=== PATIENT | male | born 1970 | race Caucasian/White ===

== ENCOUNTER → 2016-08-27 | Outpatient (CLI) | payer OTHER ==
[~2016-08-27] MED LIST: ACET-654 PO; CALC1CAP31 PO; CORE25TA PO; GLIP5TAB8 PO; PROT20TA11 PO; SIMV40TA2 PO; WARF-23 PO
== END ==
LOC: M RAD 14:37
PROVIDERS: ATTEND Internal Medicine Nephrology
DX: D41.02 Neoplasm of uncertain behavior of left kidney (principal); N18.4 Chronic kidney disease, stage 4 (severe); E11.22 Type 2 diabetes mellitus with diabetic chronic kidney disease

== ENCOUNTER → 2016-09-18 | Outpatient (CLI) | payer OTHER ==
[~2016-09-18] VITALS: Ht 180.3 cm; Wt 100.7 kg
[~2016-09-18] MED LIST changes: +ISOVUE-370 76% 100ML VIAL (Q9967) As Ordered ONE; +SODIUM BICARBONATE 75 MEQ in NS 0.45% 1,000 ML IV ONE
--- NOTE | 2016-09-18 12:26 | REP ---
Clinical: Suspected left renal mass by ultrasound. Technique: Axial contrast enhanced images from the lung bases to the pubic symphysis using 75 ml Optiray 350 intravenous contrast material along with precontrast, and multiple delayed phase sequences of the abdomen. Coronal and sagittal re-formations were obtained. Correlation: Ultrasound dated 07/04/2016. Findings: Chronic symmetric bilateral perinephric stranding is appreciated. The kidneys demonstrate symmetric enhancement. Two small nonobstructing left intrarenal calculi measure up to 2 mm. With regards to suspected mass by ultrasound, the area in question demonstrates a 1 cm complex benign appearing cyst with adjacent cortical scarring and normal Column of Omega (normal variant) which together on ultrasound suggested neoplastic lesion. No significant renal mass lesions are otherwise appreciated. Liver, spleen, pancreas, gallbladder, and bilateral adrenal glands are normal. The enteric system is without obstruction or acute inflammatory process and a normal terminal ileum and appendix are identified in the right lower quadrant. 1.5 cm fat containing periumbilical hernia is identified. Pelvis demonstrates mildly prominent prostate gland and relatively normal bladder. No ascites. No intraperitoneal or retroperitoneal adenopathy. Atherosclerotic changes to the abdominal aorta and common iliac arteries noted without aneurysm or dissection. Small fat containing inguinal hernias noted (left greater than right). Musculoskeletal structures demonstrate degenerative changes and chronic spondylolysis at L5 without focal osseous abnormality. Lung bases demonstrate posterior bilateral dependent changes. Impression: 1. Suspected mass lesion in the left kidney based on ultrasound corresponds to a 1 cm complex benign appearing cyst with adjacent mild cortical scarring and column of Omega. No significant left renal mass lesion otherwise noted. 2. Two small nonobstructing left intrarenal calculi measuring 2 mm. 3. Mildly prominent prostate gland. 4. 1.5 cm fat containing periumbilical hernia and small bilateral fat containing inguinal hernias. 5. Chronic spondylolysis at L5 with 2 mm anterolisthesis. Signed by Hesham Gomez MD 09/18/2016 12:17 P
== END ==
LOC: M RAD 09:09
PROVIDERS: ATTEND Internal Medicine Nephrology
DX: N28.1 Cyst of kidney, acquired (principal); N18.4 Chronic kidney disease, stage 4 (severe); E11.22 Type 2 diabetes mellitus with diabetic chronic kidney disease; N20.0 Calculus of kidney; K42.9 Umbilical hernia without obstruction or gangrene; K40.20 Bilateral inguinal hernia, without obstruction or gangrene, not specified as recurrent

== ENCOUNTER → 2018-03-05 | Outpatient (CLI) | payer OTHER | LOC: M RAD 11:26 | DX: N18.4 Chronic kidney disease, stage 4 (severe) (principal); E11.22 Type 2 diabetes mellitus with diabetic chronic kidney disease; I15.0 Renovascular hypertension; I70.8 Atherosclerosis of other arteries | CPT/HCPCS: G0365 ==

== ENCOUNTER 2020-06-22 19:07 | Inpatient (IN) | payer OTHER ==
[~2020-06-22] VITALS: Ht 177.8 cm; Wt 108.6 kg
[~2020-06-22 19:07] MED LIST changes: -ACET-654 PO; +ACET1TAB55 PO; -ISOVUE-370 76% 100ML VIAL (Q9967) As Ordered ONE; -SIMV40TA2 PO; +SIMV40TA20 PO; -SODIUM BICARBONATE 75 MEQ in NS 0.45% 1,000 ML IV ONE
[2020-06-22] MEDS ORDERED: ATOR40TA75 PO ×2 (19:17→23:43)
[2020-06-22] MEDS ORDERED: MAGN64TASA PO ×2 (19:17→23:43)
[2020-06-22] MEDS ORDERED: DERM1TAB2 PO (19:17)
[2020-06-22] MEDS ORDERED: IRON65TA2 PO (19:17)
[2020-06-22 19:42] LABS: HEMATOCRIT 45.1 % (42.0-52.0); HEMOGLOBIN 13.8 g/dl (13.5-17.5); MEAN CORPUSCULAR HEMOGLOBIN 27.9 pg (27.0-33.0); MEAN CORPUSCULAR HGB CONC 30.6 g/dl (32.0-36.5); MEAN CORPUSCULAR VOLUME 91.3 fl (80.0-96.0); PLATELET COUNT, AUTOMATED 176 10^3/uL (150-450); RED BLOOD COUNT 4.94 10^6/uL (4.30-6.10); WHITE BLOOD COUNT 18.5 10^3/uL (4.0-10.0)
[2020-06-22] MEDS: fentaNYL 100 MCG/2 ML INJECTION (J3010) IV PRN ×2 (20:00→21:58)
[2020-06-22 20:10] LABS: LYMPHOCYTES 3 % (16-44); METAMYELOCYTES 1 % (0-0); MONOCYTES 1 % (0-5); NEUTROPHILS 74 % (28-66)
[2020-06-22 20:11] LABS: ANISOCYTOSIS 1+; HYPOCHROMASIA 1+; PLATELET ESTIMATE NORMAL (NORMAL)
[2020-06-22 20:12] LABS: TOXIC VACUOLATION 1+
--- NOTE | 2020-06-22 20:13 | REP ---
INDICATION: CHEST PAIN. COMPARISON: 04/02/2016 FINDINGS: The technique utilized in obtaining the radiograph has magnified the cardiac silhouette and accentuated the interstitial markings. There is cardiomegaly accentuated by technique. There are patchy opacities in the left lower lobe partially silhouetting out the diaphragmatic surface of the left lung laterally. There is left CP angle blunting. The right lung is unchanged. The right pleural angle is sharp. Note of all 3. Is again made of previous median sternotomy. There is no change in the osseous structures. IMPRESSION: Left lung opacities. Pneumonia/atelectasis/effusion versus combination of all 3. <Electronically signed by Wisam Gaviria > 06/22/202008
[2020-06-22 20:44] LABS: PROTHROMBIN TIME 49.3 SECONDS (12.5-14.3)
[2020-06-22] MEDS ORDERED: CARVedilol 12.5 MG TAB PO ONE (20:45)
[2020-06-22] MEDS ORDERED: hydroCHLOROthiazide 25 MG TAB PO ONE (20:45)
[2020-06-22] MEDS ORDERED: AZITHROMYCIN INJ 500 MG, VIAL MATE ADAPTER 1 EACH in D5W 250 ML IV ONE (20:45)
[2020-06-22] MEDS ORDERED: cefTRIAXone SOD 2 GM in D5W MINI-BAG PLUS 50 ML IV ONE (20:45)
[2020-06-22] MEDS ORDERED: TORSEMIDE 20 MG TAB PO ONE (20:45)
[2020-06-22 20:46] LABS: PARTIAL THROMBOPLASTIN TIME 65.9 SECONDS (24.2-38.5)
[2020-06-22] MEDS: **hydrALAZINE HCL** 25 MG TAB PO SCH (21:00)
[2020-06-22] MEDS: CARVedilol 6.25 MG TAB PO SCH (21:00)
[2020-06-22 21:14] LABS: INR 5.23
[2020-06-22 22:08] LABS: ALBUMIN 2.3 GM/DL (3.2-5.2); ALT/SGPT 17 U/L (12-78); BILIRUBIN,DIRECT 0.4 MG/DL (0.0-0.2); BILIRUBIN,TOTAL 0.8 MG/DL (0.2-1.0); BLOOD UREA NITROGEN 75 MG/DL (7-18); CALCIUM LEVEL 8.9 MG/DL (8.5-10.1); CARBON DIOXIDE LEVEL 21 MEQ/L (21-32); CHLORIDE LEVEL 110 MEQ/L (98-107); CK-MB VALUE MASS 3.8 NG/ML (<3.6); CPK CREATINE PHOSPHOKINASE 120 U/L (39-308); CREATININE FOR GFR 5.69 MG/DL (0.70-1.30); GLOMERULAR FILTRATION RATE 11.3 (>56); GLUCOSE, FASTING 43 MG/DL (70-100); LIPASE 105 U/L (73-393); MB/CK RELATIVE INDEX 3.17 (< OR =4); NT-PRO BNP 26739 PG/ML (<125); POTASSIUM SERUM 4.8 MEQ/L (3.5-5.1); SODIUM LEVEL 140 MEQ/L (136-145); TOTAL PROTEIN 5.4 GM/DL (6.4-8.2); TROPONIN I < 0.02 NG/ML (< 0.10)
--- NOTE | 2020-06-22 22:59 | HPEPDOC ---
[facility] Medical History & Physical Date of Admission Jun 22, 2020 Date of Service: Jun 22, 2020 Primary Care Physician: Johine Parra MD Attending Physician: PEDRO BROOKS MD History and Physical TIME OF SERVICE: 1140pm CHIEF COMPLAINT: chest and back pain HISTORY OF PRESENT ILLNESS: This is a 50 yr old M who presented w c/o back pain and left sided chest pain that begun on Saturday. The pain was 9/10 in severity and worse w coughing and taking a deep breath. He thought that it might be due to a pulled muscle. He denied having GONZALEZ, f/c/n/v or diarrhea. He has had a poor appeite and his last meal was on Saturday. REVIEW OF SYSTEMS: 12 point review of systems negative except as listed in HPI PAST MEDICAL/ SURGICAL HISTORY: Premature CAD w MIs at 31, 33 yrs of age s/p CABG & stents Chronic HTN Chronic warfarin use (he doesn't know the reason why he takes this med) CKD 3/4 NIDDM Obesity SOCIAL HISTORY: + tobacco Lives with his parents FAMILY HISTORY: DM CAD ALLERGIES: Please see below. HOME MEDICATIONS: Please see below. PHYSICAL EXAMINATION: Vital Signs Date Time Temp Pulse Resp B/P (MAP) Pulse Ox O2 Delivery O2 Flow Rate FiO2 06/22/20 19:09 96.9 86 20 144/76 (98) 95 Room Air 06/22/20 20:00 3.0 97 GEN: well-nourished / well developed/ NAD INTEGUMENT: flushed/ not jaundice HEENT: lips acyanotic /mucus membranes dry/ sclera anicteric CVS: RRR/NMRG/ no JVP / radial and dorsalis pedis pulses intact / no lower extremity edema LUNGS: able to speak full sentences without stopping to take a breath / coughing / + inspiratory crackles ABDOMEN: Contour (flat) MSK/EXTREMITIES: NCAT / range of motion intact in all 4 extremities / chest pain not reproducable w palpation of the chest NEURO: CN 2-12 are grossly intact / speech is not dysarthric PSYCH: alert and oriented to person place and time/ able to understand and follow all commands LABORATORY DATA: 06/22/20 19:29 06/22/20 21:12 06/22/20 19:29: Neutrophils (%) (Auto) , Nucleated Red Blood Cells % (auto) 0.0, Neutrophils 74H, Band Neutrophils 21H, Lymphocytes (Manual) 3L, Monocytes (Manual) 1, Metamyelocytes 1H, Hypochromasia 1+, Anisocytosis 1+, Toxic Vacuolation 1+, Platelet Estimate NORMAL 06/22/20 20:19: Prothrombin Time 49.3H, Prothromb Time International Ratio 5.23*H, Activated Partial Thromboplast Time 65.9H, Coronavirus (COVID-19)(PCR) NEGATIVE 06/22/20 21:12: Anion Gap 9, Glomerular Filtration Rate 11.3L, Calcium Level 8.9, Total Bilirubin 0.8, Direct Bilirubin 0.4H, Aspartate Amino Transf (AST/SGOT) 22, Alanine Aminotransferase (ALT/SGPT) 17, Alkaline Phosphatase 79, Total Creatine Kinase 120, Creatine Kinase MB 3.8H, Creatine Kinase MB Relative Index 3.17, Troponin I < 0.02, BR-Adb-Y-Type Natriuretic Peptide 68738N, Total Protein 5.4L, Albumin 2.3L, Albumin/Globulin Ratio 0.7, Lipase 105 IMAGING: Chest xray "IMPRESSION: Left lung opacities. Pneumonia/atelectasis/effusion versus combination of all 3." MICROBIOLOGY: Please see below. ASSESSMENT: Mr. White is a 50 yr old w a hx of premature CAD/CABG, HTN, CKD 3/4, NIDDM, obesity and chronic warfarin use who will be admitted for management of Sepsis 2/2 PNA, MADINA and hypoglycemia. PLAN: 1. Sepsis SIRS criteria: bands >10% / WBC >12 / RR 20 Plan: admit to PCU / telemetry / Sepsis protocol w lactic acid / abx / IVF /f/u blood cx, UA w Cx and sputum Cx / Acetaminophen PRN for fever / target MAP at of least 65 to 70 / f/u Is and Os with target UOP of at least 0.5 ml/kg/H / f/u FSBS w target serum glucose 140-180 while acutely ill 2. Community acquired PNA Plan: continuous pulse ox & supplemental O2/ f/u sputum cx, strep pneumo, legionella, MRSA & blood cx,/ IV ceftriaxone, doxycycline / IVF / tessalon pearls / Acetaminophen PRN for fever 3. Acute Renal Failure on CKD 3/4 MADINA likely pre-renal Plan: Is/Os, daily weights / IVF / f/u, PTH, Phosph, Uric acd, ulytes for FENa or FEUrea / renal US / day time team may consider Nephro consult / hold allopurinol, torsemide, calcitriol and PPI bc of MADINA 4. Hypoglycemia Likely 2/2 infection Plan: D5NS, f/u frequent FSBS / treat infection 5. Coagulopathy INR 5.3 no bleeding Plan: hold warfarin & trend Coags /will ask day time team to call pt's PCP to obtain additional PMH 6. Chest pain Likely pleuritic 2/2 coughing Trop wnl Plan: check EKG / acetaminophen / bc of hx of premature CAD will order telemetry and trend trops 7. Possible CHF ? BNP elevated he is on a CCB and diuretics Plan: f/u Is and Os & Echo 8. LLE swelling Plan: f/u venous US to r/o DVT 9. Premature CAD Plan: atorvastatin, Coreg, Zetia 10. Chronic HTN Plan: Hydralazine, Coreg 11. NIDDM Plan: diabetic diet / f/u accuchecks & A1C / hypoglycemia protocol / sliding scale insulin / hold oral anti-glycemics 12. 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 DVT PROPHYLAXIS: SCDs DISPOSITION: home after more than 2 midnight's stay Home Medications Scheduled Allopurinol (Allopurinol) 100 Mg Tablet, 100 MG PO QHS Atorvastatin Calcium (Atorvastatin Calcium) 40 Mg Tablet, 40 MG PO QHS Calcitriol (Calcitriol) 0.25 Mcg Cap, 0.25 MCG PO 3XW SATURDAY, SATURDAY AND SATURDAY Carvedilol (Carvedilol) 6.25 Mg Tablet, 6.25 MG PO BID Cholecalciferol (Vitamin D3) (Vitamin D3) 125 Mcg Capsule, 125 MCG PO 2XW SATURDAY AND SATURDAY AT QHS Ezetimibe (Ezetimibe) 10 Mg Tablet, 10 MG PO QHS Glipizide (Glipizide) 5 Mg Tab, 5 MG PO DAILY Hydralazine HCl (Hydralazine HCl) 25 Mg Tablet, 25 MG PO BID Iron Polysaccharide Complex (Ferrex 150) 150 Mg Capsule, 150 MG PO 3XW SATURDAY, SATURDAY AND SATURDAY Magnesium Chloride (Mag64) 64 Mg Tablet.dr, 64 MG PO QHS Pantoprazole Sodium (Protonix) 20 Mg Tab, 20 MG PO QHS Sodium Bicarbonate (Sodium Bicarbonate) 325 Mg Tablet, 325 MG PO BID Torsemide (Torsemide) 20 Mg Tablet, 20 MG PO BID Warfarin Sodium (Warfarin Sodium) 5 Mg Tablet, 5 MG PO 5XW SATURDAY, SATURDAY, SATURDAY, SATURDAY AND SATURDAY AT HS Allergies Coded Allergies: No Known Drug Allergies (Verified Allergy, Unknown, 06/22/20) metformin (Verified Adverse Reaction, Severe, pancreatitis, 06/22/20) sitagliptin (Verified Adverse Reaction, Severe, pancreatitis, 06/22/20) A-FIB/CHADSVASC A-FIB History Current/History of A-Fib/PAF?: No Current PO Anticoag Therapy: No PEDRO BROOKS MD Jun 22, 2020 22:59
[2020-06-22] MEDS ORDERED: MAALOX 30 ML SUSP *UDC PO PRN (23:00)
[2020-06-22] MEDS ORDERED: VANCOMYCIN HCL IV SCH (23:00)
[2020-06-22] MEDS ORDERED: DEXTROSE 50% 50 ML SYRINGE IV PRN (23:00)
[2020-06-22] MEDS ORDERED: GLUCOSE 4GM CHEW TABLET PO PRN (23:00)
[2020-06-22] MEDS ORDERED: D5W/0.9% SODIUM CHLORIDE 1,000 ML IV SCH (23:00)
[2020-06-22] MEDS ORDERED: FLUID PLACE HOLDER IV SCH (23:00)
[2020-06-22] MEDS ORDERED: MOM 30ML SUSPENSION UDC PO PRN (23:00)
[2020-06-22] MEDS ORDERED: GLUCAGON INJ 1MG VIAL SC PRN (23:00)
[2020-06-22 23:21] LABS: PHOSPHORUS LEVEL 5.1 MG/DL (2.5-4.9)
[2020-06-22 23:37] LABS: HEMOGLOBIN A1c 8.5 %
[2020-06-22] MEDS ORDERED: EZET10TA21 PO (23:43)
[2020-06-22] MEDS ORDERED: FERR150C PO (23:43)
[2020-06-22] MEDS ORDERED: HYDR-3910 PO (23:43)
[2020-06-22] MEDS ORDERED: TORS20TA2 PO (23:43)
[2020-06-22] MEDS ORDERED: SODI325T9 PO (23:43)
[2020-06-22] MEDS ORDERED: CARV6.25 PO (23:43)
[2020-06-22] MEDS ORDERED: WARF-23 PO (23:43)
[2020-06-22] MEDS ORDERED: D-50CAP PO (23:43)
[2020-06-22] MEDS ORDERED: ALLO100T PO (23:43)
[2020-06-22 23:52] LABS: VENOUS BASE EXCESS -5.6 (-2.0-2.0); VENOUS HCO3 20.7 MEQ/L (23.0-27.0); VENOUS O2 SATURATION 76.8 % (60.0-80.0); VENOUS PARTIAL PRESSURE CO2 43.4 mmHg (38.0-50.0); VENOUS PH 7.297 UNITS (7.330-7.430); VENOUS STANDARD HCO3 19.5 MEQ/L; VENOUS TOTAL CO2 22.1 MEQ/L (24.0-28.0)
[2020-06-23] VITALS (17 sets, daily range): BP systolic 102–131; BP diastolic 60–78; O2SAT 95–97
[2020-06-23 00:31] LABS: CK-MB VALUE MASS 3.2 NG/ML (<3.6); CPK CREATINE PHOSPHOKINASE 106 U/L (39-308); MB/CK RELATIVE INDEX 3.02 (< OR =4); TROPONIN I < 0.02 NG/ML (< 0.10)
[2020-06-23] MEDS ORDERED: VANCOMYCIN HCL 1,000 MG, VIAL MATE ADAPTER 1 EACH in D5W 250 ML IV ONE ×5 (01:00→06:30)
[2020-06-23] MEDS ORDERED: VANCOMYCIN HCL 750 MG, VIAL MATE ADAPTER 1 EACH in D5W 250 ML IV ONE ×4 (01:00)
[2020-06-23] MEDS: HumaLOG INSULIN (NovoLOG) PER UNIT SC SCH ×6 (01:00→21:00)
[2020-06-23] MEDS: fentaNYL 100 MCG/2 ML INJECTION (J3010) IV PRN (01:18)
[2020-06-23] MEDS ORDERED: BENZONATATE 100 MG CAP PO PRN (01:45)
[2020-06-23] MEDS: MAGNESIUM CHLORIDE 64 MG TABCR (SLO MAG) PO SCH ×2 (02:54→21:25)
[2020-06-23] MEDS: SODIUM BICARBONATE 325 MG TAB PO SCH ×3 (02:54→21:24)
[2020-06-23] MEDS: EZETIMIBE 10 MG TAB (ZETIA) PO SCH ×2 (02:54→21:24)
[2020-06-23] MEDS ORDERED: VANCOMYCIN INTERMITTENT/PULSE DOSING BY CLINICAL PHARMACIST PER DOSING PROTOCOL XX SCH (05:15)
[2020-06-23 06:02] LABS: PROTHROMBIN TIME 51.7 SECONDS (12.5-14.3)
[2020-06-23 06:21] LABS: VANCOMYCIN RANDOM 5.8 UG/ML
[2020-06-23 06:27] LABS: INR 5.56
[2020-06-23 06:49] LABS: TROPONIN I < 0.02 NG/ML (< 0.10)
[2020-06-23] MEDS: CARVedilol 6.25 MG TAB PO SCH ×2 (09:36→21:25)
[2020-06-23] MEDS: **hydrALAZINE HCL** 25 MG TAB PO SCH (09:36)
[2020-06-23] MEDS: DOXYCYCLINE HYCLATE 100 MG in D5W MINI-BAG PLUS 100 ML IV SCH ×2 (09:37→21:24)
[2020-06-23] MEDS ORDERED: ALBUTEROL SULFATE 2.5 MG/0.5 ML INH NEB SOLN NEB PRN (10:00)
[2020-06-23] MEDS: ACETAMINOPHEN TAB 650MG DOSE (2X325MG) PO PRN ×2 (10:15→21:33)
[2020-06-23] MEDS ORDERED: NS 1,000 ML IV SCH (10:30)
--- NOTE | 2020-06-23 10:36 | REP ---
INDICATION: LLE swelling and reduced mobility r/o DVT COMPARISON: None. TECHNIQUE: Reed scale and color Doppler evaluation using linear high frequency transducer. FINDINGS: Ultrasound examination of the left lower extremity deep venous structures from the common femoral vein to the popliteal vein demonstrates normal compressibility flow and wave patterns in response to respiration and augmentation. There is no evidence for deep venous thrombosis. IMPRESSION: No evidence for deep venous thrombosis. <Electronically signed by Hesham Gomze > 06/23/20 [id number]
--- NOTE | 2020-06-23 10:41 | REP ---
INDICATION: MADINA ON CKD COMPARISON: 07/04/2016 TECHNIQUE: Real time sterling scale ultrasound examination using curved array transducer. FINDINGS: The bilateral kidneys demonstrate increased parenchymal echotexture suggesting chronic medical renal disease. No hydronephrosis, obvious nephrolithiasis, cystic or mass lesion appreciated. No obvious perinephric fluid collection. Right kidney measures 12.0 x 5.9 x 5.8 cm. Left kidney measures 11.8 x 5.8 x 6.8 cm. Bladder is under distended and grossly normal in appearance. IMPRESSION: 1. Evidence for chronic medical renal disease. No hydronephrosis. <Electronically signed by Hesham Gomez > 06/23/20 [id number]
--- NOTE | 2020-06-23 10:43 | IPNPDOC ---
Text Note Date of Service The patient was seen on 06/23/20. NOTE Subjective: Remains short of breath but reports feels slightly better than y day. Physical Exam: Vitals: As below GEN: well-nourished / well developed/ NAD INTEGUMENT: flushed/ not jaundice HEENT: lips acyanotic /mucus membranes dry/ sclera anicteric CVS: RRR/NMRG/ no JVP / radial and dorsalis pedis pulses intact / no lower extremity edema LUNGS: able to speak full sentences without stopping to take a breath / coughing / + inspiratory crackles ABDOMEN: Contour (flat) MSK/EXTREMITIES: NCAT / range of motion intact in all 4 extremities / chest pain not reproducable w palpation of the chest NEURO: CN 2-12 are grossly intact / speech is not dysarthric PSYCH: alert and oriented to person place and time/ able to understand and follow all commands Labs and Radiology: reviewed. Assessment and Plan: 50 yr old M with PMH premature CAD/CABG, HTN, CKD 4, NIDDM, obesity and chronic warfarin use presented w c/o back pain and left sided chest pain for 3 days. The pain was 9/10 in severity and worse with coughing and taking a deep breath. He thought that it might be due to a pulled muscle. He was found to have Pneumonia with sepsis, Nas on CKD and hypoglycemia. Sepsis due to pneumonia continue on ceftriaxone, doxy an vanco Cautious hydration as has high Pro bnp Community acquired PNA sputum cx, strep pneumo, legionella, MRSA Continue IV ceftriaxone, doxycycline Acute Renal Failure on CKD 4 NAS likely pre-renal hold diuretics , gentle hydration, Nephro consult Renal US ordered I/O NIDDM hypoglycemia on admission Warfarin toxicity INR 5.3 no bleeding stop it for now. Possible chronic CHF BNP elevated Echo LLE swelling f/u venous US to r/o DVT Premature CAD s/p multiple stents and CABG atorvastatin, Coreg, Zetia Chronic HTN only coreg for now. hold hydralazine and diuretics. Obesity complicates care DVT PROPHYLAXIS: SCDs VS,Fishbone, I+O VS, Fishbone, I+O Laboratory Tests 06/22/20 19:29 06/22/20 21:12 Vital Signs Date Time Temp Pulse Resp B/P (MAP) Pulse Ox O2 Delivery O2 Flow Rate FiO2 06/23/20 09:36 111/65 06/23/20 09:36 88 06/23/20 08:00 98.3 20 94 Nasal Cannula 3.0 06/22/20 20:00 97 I&O- Last 24 Hours up to 6 AM 06/23/20 06:00 Intake Total 730 ml Output Total 400 ml Balance 330 ml MAGALI VALDES MD Jun 23, 2020 10:43
[2020-06-23 11:26] LABS: HEMATOCRIT 37.7 % (42.0-52.0); HEMOGLOBIN 11.9 g/dl (13.5-17.5); MEAN CORPUSCULAR HEMOGLOBIN 28.5 pg (27.0-33.0); MEAN CORPUSCULAR HGB CONC 31.6 g/dl (32.0-36.5); MEAN CORPUSCULAR VOLUME 90.2 fl (80.0-96.0); PLATELET COUNT, AUTOMATED 158 10^3/uL (150-450); RED BLOOD COUNT 4.18 10^6/uL (4.30-6.10); WHITE BLOOD COUNT 8.8 10^3/uL (4.0-10.0)
[2020-06-23 12:02] LABS: ANISOCYTOSIS 1+; EOSINOPHILS 1 % (0-3); LYMPHOCYTES 7 % (16-44); MONOCYTES 4 % (0-5); NEUTROPHILS 88 % (28-66); PLATELET ESTIMATE NORMAL (NORMAL)
[2020-06-23 12:12] LABS: CALCIUM LEVEL 8.5 MG/DL (8.5-10.1); CREATININE FOR GFR 5.51 MG/DL (0.70-1.30); GLOMERULAR FILTRATION RATE 11.7 (>56); POTASSIUM SERUM 4.6 MEQ/L (3.5-5.1)
[2020-06-23 12:49] LABS: PTH INTACT 296.1 PG/ML (18.5-88.0)
--- NOTE | 2020-06-23 12:57 | REP ---
INDICATION: Pneumonia? loculated efussion/ abscess. COMPARISON: Portable chest 06/22/2020. TECHNIQUE: CT chest performed without the use of intravenous contrast. Sagittal and coronal reconstruction images are performed. FINDINGS: Lungs: The right base there is linear fibro atelectatic change. There is consolidative infiltrate in the posteroinferior left upper lobe and scattered throughout the left lower lobe. Mediastinum: No gross adenopathy. Johanny: No gross adenopathy. Axilla: No gross adenopathy. Pleura: There is a small left pleural effusion. Heart: Not enlarged. Thoracic aorta: No aneurysm. Upper abdominal structures: Grossly unremarkable. Visualized osseous structures: There are degenerative changes of the spine without compression deformity. There has been a median sternotomy, with multiple sternal wires present. IMPRESSION: Consolidative infiltrates in the left upper lower lobes. Small left pleural effusion. <Electronically signed by Isac Reed > 06/23/20 [id number]
--- NOTE | 2020-06-23 14:24 | ECGEPIP ---
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
--- NOTE | 2020-06-23 14:26 | ECGEPIP ---
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
[2020-06-23 15:44] LABS: TOTAL 25(OH) VITAMIN D 17.7 NG/ML (30.0-100.0)
[2020-06-23] MEDS: cefTRIAXone SOD 1 GM in D5W MINI-BAG PLUS 50 ML IV SCH (23:00)
[2020-06-24] VITALS (10 sets, daily range): BP systolic 122–138; BP diastolic 68–83; O2SAT 96–97
[2020-06-24] MEDS: HumaLOG INSULIN (NovoLOG) PER UNIT SC SCH ×6 (01:00→21:00)
[2020-06-24 06:05] LABS: BASO % 0.3 % (0.0-1.0); EOS # 0.1 10^3/uL (0.0-0.5); HEMATOCRIT 35.5 % (42.0-52.0); HEMOGLOBIN 11.3 g/dl (13.5-17.5); LYMPH # 0.6 10^3/uL (1.5-5.0); MEAN CORPUSCULAR HEMOGLOBIN 28.7 pg (27.0-33.0); MEAN CORPUSCULAR HGB CONC 31.8 g/dl (32.0-36.5); MEAN CORPUSCULAR VOLUME 90.1 fl (80.0-96.0); MONO # 0.6 10^3/uL (0.0-0.8); NEUTROPHILS # 6.5 10^3/uL (1.5-8.5); NEUTROPHILS % 83.2 % (36.0-66.0); PLATELET COUNT, AUTOMATED 145 10^3/uL (150-450); RED BLOOD COUNT 3.94 10^6/uL (4.30-6.10); WHITE BLOOD COUNT 7.8 10^3/uL (4.0-10.0)
[2020-06-24 06:15] LABS: INR 4.45; PROTHROMBIN TIME 43.4 SECONDS (12.5-14.3)
[2020-06-24 06:29] LABS: CALCIUM LEVEL 8.7 MG/DL (8.5-10.1); CREATININE FOR GFR 5.54 MG/DL (0.70-1.30); GLOMERULAR FILTRATION RATE 11.6 (>56); POTASSIUM SERUM 4.5 MEQ/L (3.5-5.1); VANCOMYCIN RANDOM 15.3 UG/ML
[2020-06-24] MEDS ORDERED: VANCOMYCIN HCL 1,000 MG, VIAL MATE ADAPTER 1 EACH in D5W 250 ML IV ONE (06:45)
[2020-06-24] MEDS: ACETAMINOPHEN TAB 650MG DOSE (2X325MG) PO PRN (10:09)
[2020-06-24] MEDS: SODIUM BICARBONATE 325 MG TAB PO SCH ×2 (10:09→20:47)
[2020-06-24] MEDS: DOXYCYCLINE HYCLATE 100 MG in D5W MINI-BAG PLUS 100 ML IV SCH ×2 (10:10→21:10)
[2020-06-24] MEDS: CARVedilol 6.25 MG TAB PO SCH ×2 (10:10→20:48)
--- NOTE | 2020-06-24 12:17 | IPNPDOC ---
Text Note Date of Service The patient was seen on 06/24/20. NOTE Subjective: Remains short of breath with conversational dyspnea. Reports feels slightly better than yesterday. Complains of severe muscle aches in both his legs, arms. Good urine output Physical Exam: Vitals: As below GEN: well-nourished / well developed INTEGUMENT: flushed/ not jaundice HEENT: lips acyanotic /mucus membranes dry/ sclera anicteric CVS: RRR/NMRG/ no JVP / radial and dorsalis pedis pulses intact / no lower extremity edema LUNGS: Conversational dyspnea to 8 to 10 words noted. Bilateral few ronchi and wheezing noted. ABDOMEN: Soft, nontender, bowel sounds normal. MSK/EXTREMITIES: NCAT / range of motion intact in all 4 extremities / chest pain not reproducable w palpation of the chest NEURO: CN 2-12 are grossly intact / speech is not dysarthric PSYCH: alert and oriented to person place and time/ able to understand and follow all commands Labs and Radiology: reviewed. Assessment and Plan: 50 yr old M with PMH premature CAD/CABG, HTN, CKD 4, NIDDM, obesity and chronic warfarin use presented w c/o back pain and left sided chest pain for 3 days. The pain was 9/10 in severity and worse with coughing and taking a deep breath. He thought that it might be due to a pulled muscle. He was found to have Pneumonia with sepsis, Nas on CKD and hypoglycemia. Sepsis due to pneumonia continue on ceftriaxone, doxy Vanco stopped, MRSA PCR negative. Community acquired PNA sputum cx, strep pneumo, legionella, MRSA will check resp panel for possible Flu or rhino SARS COVID neg. Continue IV ceftriaxone, doxycycline Acute Renal Failure on CKD 4 NAS likely pre-renal hold diuretics , gentle hydration, Nephro consult I/O in balance. NIDDM hypoglycemia on admission will continue with hypoglycemic protocol. Warfarin toxicity INR 5.3 no bleeding stop it for now. Chronic Systolic and Diastolic CHF Last EF was 20% with grade 2 diastolic dysfunction. Patient refused AICD placement. Had left ventricular mural thrombus so he is on coumadin. Possible chronic CHF BNP elevated Echo LLE swelling US bilateral leg no DVT. Premature CAD s/p multiple stents and CABG atorvastatin, Coreg, Zetia Chronic HTN only coreg for now. hold hydralazine and diuretics. Obesity complicates care DVT PROPHYLAXIS: SCDs VS,Fishbone, I+O VS, Fishbone, I+O Laboratory Tests 06/24/20 05:42 Vital Signs Date Time Temp Pulse Resp B/P (MAP) Pulse Ox O2 Delivery O2 Flow Rate FiO2 06/24/20 08:00 2.0 06/24/20 07:47 97.8 74 20 136/71 (92) 96 Nasal Cannula 06/22/20 20:00 97 I&O- Last 24 Hours up to 6 AM 06/24/20 06:00 Intake Total 1725 ml Output Total 1550 ml Balance 175 ml MAGALI VALDES MD Jun 24, 2020 12:17
[2020-06-24 14:46] LABS: MAGNESIUM LEVEL 1.9 MG/DL (1.8-2.4)
[2020-06-24] MEDS: ACETAMINOPHEN 500 MG TAB PO SCH ×2 (16:37→20:49)
[2020-06-24] MEDS: MAGNESIUM CHLORIDE 64 MG TABCR (SLO MAG) PO SCH (20:47)
[2020-06-24] MEDS: cefTRIAXone SOD 1 GM in D5W MINI-BAG PLUS 50 ML IV SCH (22:12)
[2020-06-25] VITALS (10 sets, daily range): BP systolic 129–146; BP diastolic 66–85; O2SAT 96–97
[2020-06-25] MEDS: HumaLOG INSULIN (NovoLOG) PER UNIT SC SCH ×6 (01:00→21:00)
[2020-06-25 05:45] LABS: BASO % 0.3 % (0.0-1.0); EOS # 0.1 10^3/uL (0.0-0.5); EOS % 1.1 % (0.0-3.0); HEMATOCRIT 34.3 % (42.0-52.0); HEMOGLOBIN 10.7 g/dl (13.5-17.5); LYMPH # 0.6 10^3/uL (1.5-5.0); LYMPH % 8.5 % (24.0-44.0); MEAN CORPUSCULAR HGB CONC 31.2 g/dl (32.0-36.5); MEAN CORPUSCULAR VOLUME 89.8 fl (80.0-96.0); MONO # 0.8 10^3/uL (0.0-0.8); MONO % 11.3 % (0.0-5.0); NEUTROPHILS # 5.7 10^3/uL (1.5-8.5); NEUTROPHILS % 78.3 % (36.0-66.0); PLATELET COUNT, AUTOMATED 144 10^3/uL (150-450); RED BLOOD COUNT 3.82 10^6/uL (4.30-6.10); WHITE BLOOD COUNT 7.3 10^3/uL (4.0-10.0)
[2020-06-25 06:01] LABS: INR 3.53; PROTHROMBIN TIME 36.2 SECONDS (12.5-14.3)
[2020-06-25 07:11] LABS: CALCIUM LEVEL 9.1 MG/DL (8.5-10.1); CREATININE FOR GFR 5.28 MG/DL (0.70-1.30); GLOMERULAR FILTRATION RATE 12.3 (>56); POTASSIUM SERUM 4.4 MEQ/L (3.5-5.1); VANCOMYCIN RANDOM 21.1 UG/ML
[2020-06-25] MEDS: SODIUM BICARBONATE 325 MG TAB PO SCH ×2 (08:16→21:19)
[2020-06-25] MEDS: ACETAMINOPHEN 500 MG TAB PO SCH ×3 (08:17→21:19)
[2020-06-25] MEDS: CARVedilol 6.25 MG TAB PO SCH ×2 (08:17→21:19)
[2020-06-25] MEDS: DOXYCYCLINE HYCLATE 100 MG in D5W MINI-BAG PLUS 100 ML IV SCH ×2 (08:18→21:18)
--- NOTE | 2020-06-25 11:19 | IPNPDOC ---
Text Note Date of Service The patient was seen on 06/25/20. NOTE Subjective: Feeling much better today. Still has mucle aches mostly in the c cheng but better than yesterday. Physical Exam: Vitals: As below GEN: well-nourished / well developed HEENT: lips acyanotic /mucus membranes moist/ sclera anicteric CVS: RRR/NMRG/ no JVP / radial and dorsalis pedis pulses intact / no lower extremity edema LUNGS: Chest clear to auscultation ABDOMEN: Soft, nontender, bowel sounds normal. MSK/EXTREMITIES: NCAT / range of motion intact in all 4 extremities NEURO: CN 2-12 are grossly intact / speech is not dysarthric PSYCH: alert and oriented to person place and time/ able to understand and follow all commands Labs and Radiology: reviewed. Assessment and Plan: 50 yr old M with PMH premature CAD/CABG, HTN, CKD 4, NIDDM, obesity and chronic warfarin use presented w c/o back pain and left sided chest pain for 3 days. The pain was 9/10 in severity and worse with coughing and taking a deep breath. He thought that it might be due to a pulled muscle. He was found to have Pneumonia with sepsis, Nas on CKD and hypoglycemia. Sepsis due to pneumonia continue on ceftriaxone, doxy Vanco stopped, MRSA PCR negative. Community acquired PNA sputum cx, strep pneumo, legionella, MRSA will check resp panel for possible Flu or rhino SARS COVID neg. Continue IV ceftriaxone, doxycycline Acute Renal Failure on CKD 4 NAS likely pre-renal No diuretics , no ivf. Nephro consult I/O in balance. NIDDM hypoglycemia on admission will continue with hypoglycemic protocol. Warfarin toxicity INR 5.3 improving. no bleeding stop it for now. Chronic Systolic and Diastolic CHF Last EF was 20% with grade 2 diastolic dysfunction. Patient refused AICD placement. Had left ventricular mural thrombus so he is on coumadin. Will restart when INR in correct range. LLE swelling US bilateral leg no DVT. Premature CAD s/p multiple stents and CABG atorvastatin, Coreg, Zetia Chronic HTN only coreg for now. hold hydralazine and diuretics. Obesity complicates care DVT PROPHYLAXIS: SCDs VS,Fishbone, I+O VS, Fishbone, I+O Laboratory Tests 06/25/20 05:26 Vital Signs Date Time Temp Pulse Resp B/P (MAP) Pulse Ox O2 Delivery O2 Flow Rate FiO2 06/25/20 08:00 97.5 73 18 145/66 (92) 97 Nasal Cannula 1.0 06/22/20 20:00 97 I&O- Last 24 Hours up to 6 AM 06/25/20 06:00 Intake Total 1460 ml Output Total 2375 ml Balance -915 ml MAGALI VALDES MD Jun 25, 2020 11:19
--- NOTE | 2020-06-25 14:03 | ECGEPIP ---
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 MAY BE RELATED TO PRIOR INFERIOR WALL INFARCT POSSIBLE ANTERIOR MYOCARDIAL INFARCTION, OF INDETERMINATE AGE Compared to prior tracings in the system, no significant changes Electronically Signed on 06-25-2020 14:02:51 EST by Chirag Rico
[2020-06-25] MEDS: MAGNESIUM CHLORIDE 64 MG TABCR (SLO MAG) PO SCH (21:19)
[2020-06-25] MEDS: cefTRIAXone SOD 1 GM in D5W MINI-BAG PLUS 50 ML IV SCH (23:08)
[2020-06-26 02:00] VITALS: BP 139/79
[2020-06-26 06:00] VITALS: BP 142/88
[2020-06-26 06:52] LABS: BASO % 0.3 % (0.0-1.0); EOS # 0.1 10^3/uL (0.0-0.5); EOS % 1.2 % (0.0-3.0); HEMOGLOBIN 11.7 g/dl (13.5-17.5); LYMPH # 0.5 10^3/uL (1.5-5.0); LYMPH % 5.7 % (24.0-44.0); MEAN CORPUSCULAR HEMOGLOBIN 27.6 pg (27.0-33.0); MEAN CORPUSCULAR HGB CONC 30.8 g/dl (32.0-36.5); MEAN CORPUSCULAR VOLUME 89.6 fl (80.0-96.0); MONO # 1.2 10^3/uL (0.0-0.8); NEUTROPHILS % 78.1 % (36.0-66.0); PLATELET COUNT, AUTOMATED 156 10^3/uL (150-450); RED BLOOD COUNT 4.24 10^6/uL (4.30-6.10); WHITE BLOOD COUNT 8.9 10^3/uL (4.0-10.0)
[2020-06-26 07:00] LABS: INR 2.39; PROTHROMBIN TIME 26.6 SECONDS (12.5-14.3)
[2020-06-26 07:27] LABS: CALCIUM LEVEL 8.4 MG/DL (8.5-10.1); GLOMERULAR FILTRATION RATE 13.1 (>56); POTASSIUM SERUM 4.4 MEQ/L (3.5-5.1)
[2020-06-26] MEDS: HumaLOG INSULIN (NovoLOG) PER UNIT SC SCH ×4 (07:30→21:00)
[2020-06-26] MEDS: DOXYCYCLINE HYCLATE 100MG TABLET PO SCH ×2 (09:32→21:25)
[2020-06-26] MEDS: glipiZIDE (GLUCOTROL) 5 MG TAB PO SCH (09:33)
[2020-06-26] MEDS: SODIUM BICARBONATE 325 MG TAB PO SCH ×2 (09:33→21:24)
[2020-06-26] MEDS: CARVedilol 6.25 MG TAB PO SCH ×2 (09:33→21:25)
[2020-06-26] MEDS: ACETAMINOPHEN 500 MG TAB PO SCH ×3 (09:35→21:25)
[2020-06-26 10:00] VITALS: BP 142/85
--- NOTE | 2020-06-26 10:36 | IPNPDOC ---
Text Note Date of Service The patient was seen on 06/26/20. NOTE Subjective: Feeling much better today. Still has muscle aches mostly in the calves but better than yesterday. Sitting up by the side of bed complains of left back lower chest pain when he takes a deep breath or coughs thats the site of his consolidation. Physical Exam: Vitals: As below GEN: well-nourished / well developed HEENT: lips acyanotic /mucus membranes moist/ sclera anicteric CVS: RRR/NMRG/ no JVP / radial and dorsalis pedis pulses intact / no lower extremity edema LUNGS: Chest clear to auscultation ABDOMEN: Soft, nontender, bowel sounds normal. MSK/EXTREMITIES: NCAT / range of motion intact in all 4 extremities EXTREMITIES: bipedal 2+ edema. NEURO: CN 2-12 are grossly intact / speech is not dysarthric PSYCH: alert and oriented to person place and time/ able to understand and follow all commands Labs and Radiology: reviewed. Assessment and Plan: 50 yr old M with PMH premature CAD/CABG, HTN, CKD 4, NIDDM, obesity and chronic warfarin use presented w c/o back pain and left sided chest pain for 3 days. The pain was 9/10 in severity and worse with coughing and taking a deep breath. He thought that it might be due to a pulled muscle. He was found to have Pneumonia with sepsis, Nas on CKD and hypoglycemia. Sepsis due to pneumonia Now resolved continue on ceftriaxone, doxy Community acquired PNA CT chest: There is consolidative infiltrate in the posteroinferior left upper lobe and scattered throughout the left lower lobe. sputum cx, strep pneumo, legionella pending. Resp panel neg, MRSA neg, SARS COVID neg. Continue IV ceftriaxone, doxycycline Acute Renal Failure on CKD 4 creatine at 5.0 which is close to his baseline. NAS likely pre-renal No diuretics , no ivf. Nephro consult I/O in balance. NIDDM hypoglycemia on admission now eating better so sugars rising will restart glipizide will continue with hypoglycemic protocol. Warfarin toxicity resolved INR in therapeutic range will restart. Chronic Systolic and Diastolic CHF Last EF was 20% with grade 2 diastolic dysfunction. Patient refused AICD placement. Had left ventricular mural thrombus so he is on Coumadin. will restart coumadin now. LLE swelling US bilateral leg no DVT. Premature CAD s/p multiple stents and CABG atorvastatin, Coreg, Zetia Chronic HTN only coreg for now. hold hydralazine and diuretics. Obesity complicates care DVT PROPHYLAXIS: SCDs Dispo: Home in 24 to 48 hours. VS,Fishbone, I+O VS, Fishbone, I+O Laboratory Tests 06/26/20 05:28 Vital Signs Date Time Temp Pulse Resp B/P (MAP) Pulse Ox O2 Delivery O2 Flow Rate FiO2 06/26/20 09:33 78 142/85 06/26/20 06:00 99.0 20 93 Room Air 06/25/20 20:00 1.0 06/22/20 20:00 97 I&O- Last 24 Hours up to 6 AM 06/26/20 06:00 Intake Total 710 ml Output Total 500 ml Balance 210 ml MAGALI VALDES MD Jun 26, 2020 10:36
[2020-06-26] MEDS: LIDOCAINE 5% (LIDODERM) PATCH TD SCH (12:13)
[2020-06-26 14:00] VITALS: BP 150/92
[2020-06-26 18:00] VITALS: BP 145/88
[2020-06-26] MEDS ORDERED: **NOTE PATIENT COMMENT** MISC XX SCH (21:00)
[2020-06-26] MEDS: MAGNESIUM CHLORIDE 64 MG TABCR (SLO MAG) PO SCH (21:24)
[2020-06-26] MEDS: EZETIMIBE 10 MG TAB (ZETIA) PO SCH (21:25)
[2020-06-26 22:00] VITALS: BP 145/86
[2020-06-26] MEDS: cefTRIAXone SOD 1 GM in D5W MINI-BAG PLUS 50 ML IV SCH (23:14)
[2020-06-27 02:00] VITALS: BP 145/85
[2020-06-27 05:59] LABS: BASO % 0.2 % (0.0-1.0); EOS # 0.1 10^3/uL (0.0-0.5); HEMOGLOBIN 11.1 g/dl (13.5-17.5); LYMPH # 0.8 10^3/uL (1.5-5.0); LYMPH % 9.7 % (24.0-44.0); MEAN CORPUSCULAR HEMOGLOBIN 28.1 pg (27.0-33.0); MEAN CORPUSCULAR HGB CONC 31.7 g/dl (32.0-36.5); MEAN CORPUSCULAR VOLUME 88.6 fl (80.0-96.0); MONO # 1.1 10^3/uL (0.0-0.8); NEUTROPHILS # 6.1 10^3/uL (1.5-8.5); NEUTROPHILS % 73.4 % (36.0-66.0); PLATELET COUNT, AUTOMATED 179 10^3/uL (150-450); RED BLOOD COUNT 3.95 10^6/uL (4.30-6.10); WHITE BLOOD COUNT 8.3 10^3/uL (4.0-10.0)
[2020-06-27 06:00] VITALS: BP 144/84
[2020-06-27 06:08] LABS: INR 1.95; PROTHROMBIN TIME 22.7 SECONDS (12.5-14.3)
[2020-06-27 06:24] LABS: CREATININE FOR GFR 4.58 MG/DL (0.70-1.30); GLOMERULAR FILTRATION RATE 14.5 (>56)
--- NOTE | 2020-06-27 08:46 | ECHO ---
DATE OF PROCEDURE: 06/24/2020 Age: 50 Gender: Male REFERRING PROVIDER: Cynthia Dennis MD PATIENT LOCATION: Room 3227 REASON FOR STUDY: Shortness of breath. 2D MEASUREMENTS: IVS 1.81 cm LV 6.5 cm LVPW 1.1 cm LA 5.0 cm Aorta 3.4 cm IVC 2.4 cm DOPPLER MEASUREMENT Peak velocity across the aortic valve 1.1 msec Peak velocity across the LVOT 0.7 msec Mitral E 0.8 Maximum tricuspid valve velocity 2.7 msec COMMENTS: 1. Moderately enlarged left ventricle with severe global hypokinesis. The estimated left ventricular systolic ejection fraction is 20%. 2. Subjectively, the left atrium appeared to be mildly enlarged. The right atrium and the right ventricle subjectively also appeared to be minimally enlarged. 3. The atrial septum appeared to be normal without evidence of defect or shunt. 4. Normal aortic root. 5. No pericardial effusion seen. 6. Mildly calcified aortic valve with normal leaflet excursion. Normal mitral valve, tricuspid valve, and pulmonic valve. The proximal pulmonary artery branches also appeared to be normal. 7. The inferior vena cava was dilated, central venous pressure is most likely elevated. Doppler detects trace to mild mitral regurgitation, mild tricuspid regurgitation. The calculated pulmonary artery systolic pressure varies between 30 to 40 mmHg. Assessment of the left ventricular diastolic function was limited, but appeared to be restrictive in nature. IMPRESSION: 1. Moderately dilated left ventricle with severe global hypokinesis and severely depressed global left ventricular systolic function. 2. Dilated left atrium with trace to mild mitral regurgitation. 3. Mild tricuspid regurgitation with mild pulmonary hypertension. 4. There are features consistent with elevated central venous pressure, the inferior vena cava was mildly enlarged. 5. Assessment of the left ventricular diastolic function was limited. [facility]
--- NOTE | 2020-06-27 08:50 | IPN ---
DATE: 06/24/2020 SUBJECTIVE: The patient is seen and examined this morning at the bedside. Reports his labored breathing has improved as compared to yesterday but he is still having a cough and complains of myalgias. Reports no issues with oral intake and no issues passing urine. Renal function is unchanged as compared to yesterday. PHYSICAL EXAMINATION: VITAL SIGNS: Temperature 97.4, pulse 72, respiratory rate 22, blood pressure 131/68, saturating 97% on 2 liters nasal cannula. Review of I.s and O.s yesterday shows negative positive 900 mL. Weight on the bed scale today is 110.5 kg. GENERAL APPEARANCE: The patient is seen lying fairly flat in bed. A middle aged male in mild respiratory distress, noted to be coughing but is able to speak in a little bit more full sentences today. HEENT: Extraocular muscles are intact. There is dried blood from the left naris where he recently had a mild epistaxis. Nasal cannula is in place. Tongue and lips are very dry. NECK: Supple. Jugular veins are not elevated. HEART: Regular, S1, S2. There is a healed vertical sternal incision. LUNGS: Scattered rhonchus and wheeze mostly on the left. He can speak in somewhat abel sentences today as compared to yesterday but a dry cough is still ongoing. ABDOMEN: Soft. There are bowel sounds. GENITOURINARY: There is no Madden catheter. He is voiding to urinal. The bladder is not distended. NEUROLOGICAL: He is oriented x3, interactive and at baseline mentation. PSYCHIATRIC: Appropriate mood and affect. SKIN: Warm and dry. LABORATORY STUDIES: Sodium 139, potassium 4.5, bicarbonate 22, BUN 79, creatinine 5.5, INR 4.4. Hemoglobin 11.3, platelets 145. IMAGING: Chest CT done yesterday shows consolidative infiltrates in the left upper lobes and a small left pleural effusion. INPATIENT MEDICATIONS: The patient's medications were reviewed by myself. He is on: * Ceftriaxone one gram IV daily. * Doxycycline 100 mg IV twice daily. * Vancomycin one gram IV times one. The remainder of medications are unchanged from prior. PROBLEMS: 1. Acute kidney injury on chronic kidney disease stage 4 baseline creatinine is 3.5. Baseline GFR is 18. He sees Dr. Umaña in the office. Usually in the office he comes in with some leg edema and on the wet side. Presently in the hospital he is on the dry side with no leg edema. He has severe underlying ischemic cardiomyopathy. I would hold off on IV fluids. He is tolerating oral intake well, and I asked him to drink at least a liter and a half daily. I would not give him IV fluids in view of his advanced heart failure, along with his ability to tolerate p.o. Please hold his diuretics. Acute kidney injury is secondary to pneumonia. 2. Ischemic cardiomyopathy echocardiogram in February of 2020 showed left ventricular ejection fraction of 20%. He previously refused ICD placement. He has a known mural thrombus. He takes Coumadin. His INR is supratherapeutic. He has grade 2 diastolic dysfunction as well. Please hold his home diuretics as he is on the dry side at present. 3. Left sided pneumonia antimicrobials as per Primary Team. He reports some symptomatic improvement, continues to require supplemental oxygen. His white count is downtrending. 4. Mural thrombus his INR is supratherapeutic. His Coumadin is on hold. 5. Chronic hypertension - blood pressures are acceptable with Carvedilol. Please hold his diuretics. 6. Metabolic acidosis it is stable on the current sodium bicarbonate supplementation. 7. Hypoglycemia his sugars are repeatedly on the low side. He is not receiving any oral hypoglycemic. I suggest to discontinue the subcutaneous insulin for now as his highest fingerstick was only 150, and he reports that his appetite for food remains low. MTDD
--- NOTE | 2020-06-27 08:56 | IPN ---
DATE: 06/25/2020 SUBJECTIVE: The patient is seen this morning at his bedside. He is laying in the recliner chair at present. He feels well and reports that his lower extremity edema has improved significantly. He denies any nausea, vomiting, dyspnea or chest pain. He is still very weak and has difficulty ambulating. PHYSICAL EXAMINATION: VITAL SIGNS: Temperature 98 degrees Fahrenheit, heart rate 64 per minute, respiratory rate 22 per minute, blood pressure 146/70 mm of mercury and oxygen saturation 92% on one liter oxygen. Intake and output records from yesterday show a negative fluid balance of 590 mL. HEENT: Head is atraumatic. NECK: Supple and JVD not abnormally elevated. HEART: Regular. LUNGS: Clear to auscultation. ABDOMEN: Soft and nontender and bowel sounds normal. EXTREMITIES: Without any cyanosis or clubbing. NEUROLOGICALLY: He is awake, alert and at his baseline mentation. LABORATORY STUDIES: Todays labs show a WBC count of 7.3, hemoglobin 10.7 and hematocrit 34.3, platelets 144. Sodium 139, potassium 4.4, CO2 20, BUN 86 and creatinine 5.28, glucose 171 and calcium 9.1. PROBLEMS: 1. Acute renal failure superimposed on chronic renal disease only slight improvement noticed over the last 24 hours. The patient does not have any overt uremic symptoms and we will continue to monitor closely. There is no emergent indication for dialysis at this point. If his cranial function does not improve, then eventually in the detention he is likely to require dialysis. 2. Anemia his anemia has gradually worsened but no urgent intervention is needed. He was probably dehydrated and anemia has responded his volume correction. 3. Pneumonia - The patient remains on antibiotics including Ceftriaxone and Doxycycline. He is currently afebrile. 4. Metabolic acidosis - The patient is on oral sodium bicarbonate and does not have any significant acidosis at present. [facility]
[2020-06-27] MEDS: ACETAMINOPHEN 500 MG TAB PO SCH (09:00)
--- NOTE | 2020-06-27 09:00 | IPN ---
DATE: 06/26/2020 SUBJECTIVE: Mr. White is seen this morning at his bedside. He is feeling about the same. He denies any nausea or vomiting. He does get short of breath on exertion. There is no fever or chills at present. PHYSICAL EXAMINATION: VITAL SIGNS: Temperature 98.3 degrees Fahrenheit, heart is 78 per minute, respiratory rate is 16 per minute, blood pressure 142/85 mm of mercury and oxygen saturation is 94% on room air. HEENT: Head is atraumatic. NECK: Supple and without JVD or thyroid enlargement. HEART: Regular and without a pericardial friction rub. LUNGS: Slightly diminished on the lower base. No wheezing or rales audible. ABDOMEN: Soft and nontender and bowel sounds are normal. EXTREMITIES: Without any cyanosis or clubbing. NEUROLOGICALLY: He is wake, alert and oriented x3. LABORATORY STUDIES: Todays labs show a WBC count of 8.9, hemoglobin 11.7 and hematocrit 38, platelets 156. Sodium 139, potassium 4.4, CO2 21, BUN 90 and creatinine 5.0, glucose 179, calcium 8.4. PROBLEMS: 1. Acute renal failure superimposed on chronic kidney disease slow and gradual improvement in kidney function is noticed. The patient does not have any overt uremic symptoms and there is not emergent indication for dialysis. His electrolytes are all stable. We will continue to monitor his kidney function on a daily basis. 2. Anemia his anemia is mild and stable and at this point no intervention is indicated. 3. Hypertension - blood pressure is very well controlled on current medications and no changes are being made today. 4. Pneumonia - The patient is afebrile and remains on antibiotics. His Doxycycline has been stopped and changed to oral. He remains on Ceftriaxone. 5. Metabolic acidosis - The patient remains on oral sodium bicarbonate with improved metabolic acidosis. MTDD
[2020-06-27] MEDS: HumaLOG INSULIN (NovoLOG) PER UNIT SC SCH (09:25)
[2020-06-27] MEDS: DOXYCYCLINE HYCLATE 100MG TABLET PO SCH (09:25)
[2020-06-27] MEDS: glipiZIDE (GLUCOTROL) 5 MG TAB PO SCH (09:25)
[2020-06-27] MEDS: SODIUM BICARBONATE 325 MG TAB PO SCH (09:25)
[2020-06-27] MEDS: LIDOCAINE 5% (LIDODERM) PATCH TD SCH (09:25)
[2020-06-27 09:29] VITALS: BP 143/84
[2020-06-27] MEDS: CARVedilol 6.25 MG TAB PO SCH (09:29)
[2020-06-27 10:00] VITALS: BP 145/83
[2020-06-27] MEDS ORDERED: BENZ-18 PO (10:00)
[2020-06-27] MEDS ORDERED: DOXY100T PO (10:00)
[2020-06-27] MEDS ORDERED: CEFD1CAP8 PO (10:00)
[2020-06-27] MEDS ORDERED: CEFDINIR 300 MG CAP (OMNICEF) PO ONE (10:00)
--- NOTE | 2020-06-27 11:30 | CR ---
REQUESTING PHYSICIAN: Dr. Autumn Cano CONSULTING PHYSICIAN: Dr. Jackson REASON FOR CONSULTATION: Acute kidney injury (MADINA) on chronic kidney disease (CKD), stage IV, in this patient with pneumonia. HISTORY OF PRESENT ILLNESS: Anders White is an office patient of Dr. Guy, a 50-year-old male with CKD IV with baseline GFR of about 18 mL per minute and baseline creatinine of 3.5. Also with ischemic cardiomyopathy, status post myocardial infarction and 4-vessel coronary artery bypass graft (CABG) in 2014 and history of a mural thrombus, on chronic Coumadin anticoagulation with most recent echocardiogram done in February of this year showing a left ventricular ejection fraction of 20% and a grade 2 diastolic dysfunction also with a history of peripheral vascular disease, type 2 diabetes mellitus, dyslipidemia, hypertension, and other comorbid conditions mentioned below. Patient states he was in his usual state of health until he started to experience a cough with left-sided chest pain that begin on Saturday. States that he was coughing so hard during the night that when he got up in the morning he saw that he had burst capillaries in his eyes. He had severe pain on the left side and thought that he may have pulled a muscle coughing so hard. He denies any fevers or chills. He reported poor oral intake and loss of appetite. He presented to the emergency room for further evaluation. He was found to be hypoxic and was started on supplemental oxygen via nasal cannula. Laboratory studies revealed significantly elevated INR at 5.2 with acute kidney injury superimposed o his known CKD stage IV, and imaging demonstrated a left-sided pneumonia, and he was admitted for the same. Nephrology consultation is requested for help in the management of this patient's advanced renal dysfunction. MEDICAL HISTORY: 1. Ischemic cardiomyopathy. Left ventricular ejection fraction 20% with grade 2 diastolic dysfunction on most recent echo in February 2020. 2. Mural thrombus, on chronic anticoagulation (Coumadin). 3. Hypertension. 4. [id number] diabetes mellitus. 5. CKD, stage IV. Baseline creatinine 3.5. 6. Anemia of chronic renal failure. 7. Secondary hyperparathyroidism of renal origin. 8. Peripheral vascular disease. 9. Hyperuricemia. 10. Gastroesophageal reflux disease (GERD). 11. History of cerebral infarction. SURGICAL HISTORY: 1. CABG in 2014. 2. Coronary artery stenting. 3. Multiple cardiac catheterizations. FAMILY HISTORY: Strong heart failure of heart disease. Father has atrial fibrillation. Mother has a history of myocardial infarction. SOCIAL HISTORY: He is single. He is an every-day smoker. Rarely consumed alcohol. There is no reported drug use. HOME MEDICATIONS: - allopurinol 100 mg by mouth daily - aspirin 81 mg by mouth daily - atorvastatin 40 mg daily - calcitriol 0.25 mcg Saturday through - carvedilol 6.25 twice a day - iron supplement - glipizide 5 mg twice a day - hydralazine 25 mg twice a day - MagDelay one tablet once daily - Protonix 20 mg daily - sodium bicarbonate one tablet twice a day - torsemide 20 mg twice daily - vitamin D3 one tablet twice a week - Coumadin as directed - Zetia one tablet daily 10 mg ALLERGIES: JAIMET, REVIEW OF SYSTEMS: CONSTITUTIONAL: He denies fevers or chills. EYES: Denies blurry vision or tearing. Reports he coughed so hard he burst the capillaries in his eyes. EARS, NOSE, AND THROAT: Denies tinnitus or rhinorrhea. CARDIOVASCULAR: Has a history of congestive heart failure, left ventricular (LV) thrombus, and peripheral vascular disease. He denies chest pain or edema. RESPIRATORY: He reports severe cough and shortness of breath. GASTROINTESTINAL: Reports poor appetite. Denies diarrhea or vomiting. GENITOURINARY: Reports no change in urine output. Denies dysuria or hematuria. MUSCULOSKELETAL: Reports left leg pain. Denies acute myalgias or arthralgias. SKIN: Denies skin, hair, or nail symptoms. NEUROLOGIC: Reports cerebrovascular accident (CVA) in summer of 2016. Denies seizure or syncope. PSYCHIATRIC: Denies psychiatric symptoms. ENDOCRINE: Reports diabetes and secondary hyperparathyroidism. HEMATOLOGIC: Reports chronic anticoagulation. Denies anemia. Remainder of review of systems is negative or as per history of present illness (HPI). Vital Signs: Temperature 96.9, pulse 86, respiratory rate 20, blood pressure 144/76, saturating 95% on room air. General: Patient is seen lying in bed, middle-aged male in mild respiratory distress. Coughing frequently and able to speak in half-sentences. Some resolving burst microcapillaries in the eyes. Extraocular muscles are intact. The tongue and the lips are dry. Ears and nose are unremarkable. There is recent nosebleed evidence from the left naris. Neck is supple. Jugular veins are not elevated. Heart sounds: S1, S2. No murmur appreciated. Healed sternal incision noted. Lungs show good movement on the right side and crackles on the left. He is unable to take deep inspiration without provoking a coughing fit. He is speaking in half-sentences. He is on nasal cannula. Abdomen is soft. There are bowel sounds present. Belly is obese. Genitourinary: There is no Madden catheter. He is voiding to the urinal. The bladder is not distended. Extremities: There is absolutely no edema in the legs. No clubbing or cyanosis. Neurologic: He is oriented times three, interactive and conversational. Psychiatric: Appropriate mood and affect. LABORATORY DATA: Sodium 140, potassium 4.8, bicarbonate 21, BUN 75, creatinine 5.6. A1c 8.5. Hemoglobin 13.8, white count 18.5. INR 5.2. IMAGING: Chest x-ray done June 22 shows left lung opacities. Vascular ultrasound today shows no deep venous thrombosis (DVT) in the left lower extremity. Renal ultrasound done today shows increased parenchymal echogenicity. No hydronephrosis. INPATIENT MEDICATIONS: He is receiving: - doxycycline 100 mg intravenous (IV) twice a day - ceftriaxone 1 gram IV daily - Tylenol 1 gram three times a day - albuterol as needed - Coreg 6.25 mg by mouth twice a day - Zetia 10 mg by mouth every night - insulin - magnesium chloride 64 mg by mouth every night - sodium bicarbonate 325 mg by mouth twice a day PROBLEMS: 1. Acute kidney injury (MADINA) on chronic kidney disease (CKD), stage IV. Baseline creatinine is 3.5. Baseline GFR is 18 mL per minute. Patient is usually hypervolemic when he comes to the clinic with leg edema, but today on exam he looks to be very well compensated and actually a little bit on the dry side. I recommend to hold his diuretics and encourage him for oral fluid intake. I do not see a need for IV fluid at this time, as he is able to take by mouth without any issue, and he does have a known history of severe ischemic cardiomyopathy. His MADINA is due to pneumonia, and there is no urgent indication for dialysis initiation at present. 2. Ischemic cardiomyopathy. Echocardiogram from February [address] Car in the office. He has a left ventricular ejection fraction that is down to 20%. He has previously refused implantable cardioverter defibrillator (ICD) placement. He has a known LV thrombus. He is anticoagulated with Coumadin. He also has grade 2 diastolic dysfunction. When he comes to the nephrology office, he is usually a little bit on the wet side. Now in the hospital with pneumonia he looks to be very well compensated and actually a little dry. Please hold all his diuretics and encourage oral fluid intake of at least 1500 mL daily. 3. Left-sided pneumonia. He has a white count of 18,000. He is afebrile. He is requiring supplemental oxygen. He is short of breath with speech. I suggest to get a non-contract CT chest to make sure that there is no loculated effusion that needs to be drained. Antimicrobials are as per primary service. 4. Hypertension. Blood pressures are acceptable. He continues on carvedilol. Please hold all diuretics. 5. Metabolic acidosis. It is mild. He continues on his oral sodium bicarbonate supplementation. 6. Hypoglycemia. Glucose down to 43. His oral hypoglycemics have all been held, of course, and he is not receiving any long-acting insulin at this point. Thank you for involving me in the care of Mr. White. I will be happy to follow him along with you. MANAV
[2020-06-27] MEDS ORDERED: WARFARIN SOD 5MG TAB PO SCH (17:00)
--- NOTE | 2020-06-28 07:14 | IPN ---
NEPHROLOGY PROGRESS NOTE DATE: 06/27/2020 SUBJECTIVE: Mr. White is seen this morning on his bedside. He is sitting at the edge of bed and feels better. He reports that his legs are still weak and he cannot walk very well. He denies any fever or chills. He has no nausea or vomiting. PHYSICAL EXAMINATION: Temperature 98.4 degrees Fahrenheit, heart rate 74 per minute, respiratory rate 20 per minute. Blood pressure 145/83 mmHg and oxygen saturation 94% on room air. Head: Atraumatic. Neck: Supple and without JVD or thyroid enlargement. Heart: Sounds are regular. Lungs: With slightly diminished breath sounds at bases. Abdomen: Soft and nontender and bowel sounds are normal. Extremities: Without any cyanosis or clubbing. Neurologically: He is awake, alert and without any focal deficit. LABORATORY DATA: Todays labs show WBC count 8.3, hemoglobin 11, hematocrit 35. Sodium 140, potassium 4, CO2 19, BUN 85, creatinine 4.58. PROBLEMS/PLAN: 1. Acute kidney injury superimposed on chronic kidney disease: Gradual improvement in kidney function is noticed. Patient has no overt uremic symptoms and there is no emergent indication for dialysis. 2. Anemia: His anemia is stable and does not need any urgent intervention. 3. Metabolic acidosis: He has mild metabolic acidosis and remains on low dose sodium bicarbonate which should be continued. 4. Disposition: Patient is being discharged today by the Hospitalist Service. He will follow up in the office with Dr. Guy next week. I have discussed with the patient at length and he understands that he has advanced kidney disease and might require dialysis in the near future. He understands to call our office in case of any change in his condition. I answered all his questions. MANAV
== END 2020-06-27 12:00 | disposition home or self-care (01) | DRG 720 ==
LOC: M ED 19:07 → M ED INP 22:46 → ENRESERV 23:47 → M PCU 06-23 01:22 → M MSPAV 06-25 22:42
PROVIDERS: ADMIT Internal Medicine; ATTEND Internal Medicine Nephrology
DX: A41.9 Sepsis, unspecified organism (principal); J18.9 Pneumonia, unspecified organism; I13.0 Hypertensive heart and chronic kidney disease with heart failure and stage 1 through stage 4 chronic kidney disease, or unspecified chronic kidney disease; N17.9 Acute kidney failure, unspecified; E87.2 Acidosis; N18.4 Chronic kidney disease, stage 4 (severe); I50.42 Chronic combined systolic (congestive) and diastolic (congestive) heart failure; E11.22 Type 2 diabetes mellitus with diabetic chronic kidney disease; E11.649 Type 2 diabetes mellitus with hypoglycemia without coma; E11.51 Type 2 diabetes mellitus with diabetic peripheral angiopathy without gangrene; I25.10 Atherosclerotic heart disease of native coronary artery without angina pectoris; K21.9 Gastro-esophageal reflux disease without esophagitis; E78.5 Hyperlipidemia, unspecified; I25.2 Old myocardial infarction; I25.5 Ischemic cardiomyopathy; D63.1 Anemia in chronic kidney disease; E66.9 Obesity, unspecified; E86.0 Dehydration; M62.81 Muscle weakness (generalized); F17.200 Nicotine dependence, unspecified, uncomplicated; M79.89 Other specified soft tissue disorders; Z95.5 Presence of coronary angioplasty implant and graft; Z79.01 Long term (current) use of anticoagulants; Z79.84 Long term (current) use of oral hypoglycemic drugs; Z79.899 Other long term (current) drug therapy; Z88.8 Allergy status to other drugs, medicaments and biological substances; Z68.34 Body mass index [BMI] 34.0-34.9, adult; Z86.718 Personal history of other venous thrombosis and embolism; Z86.73 Personal history of transient ischemic attack (TIA), and cerebral infarction without residual deficits; Z79.82 Long term (current) use of aspirin; Z20.828 Contact with and (suspected) exposure to other viral communicable diseases

== ENCOUNTER → 2020-07-06 | Outpatient (CLI) | payer OTHER ==
[~2020-07-06] MED LIST changes: +ALLO100T PO; +ATOR40TA75 PO; +BENZ-18 PO; +CARV6.25 PO; +CEFD1CAP8 PO; +D-50CAP PO; +DERM1TAB2 PO; +DOXY100T PO; +EZET10TA21 PO; +FERR150C PO; +HYDR-3910 PO; +IRON65TA2 PO; +MAGN64TASA PO; +SODI325T9 PO; +TORS20TA2 PO
--- NOTE | 2020-07-06 15:08 | REP ---
INDICATION: PLEURAL EFFUSION. COMPARISON: Comparison chest x-ray June 22, 2020. Comparison study April 02, 2016 is also reviewed. TECHNIQUE: Two views.. FINDINGS: There is pleural thickening and pleural opacity in the lower half of the left hemithorax. This obscures the left hemidiaphragm and is consistent with left pleural effusion. There is some fissural thickening. I cannot exclude and left lower lobe parenchymal infiltrate and/or atelectasis. Patient is status post median sternotomy. There are coronary artery stent visible in the distribution of the left and right coronary artery. The pleuroparenchymal changes on the left are more pronounced than on June 22, 2020. There are 1 or 2 air bronchograms suspected. No infiltrate is noted on the right. IMPRESSION: Left pleural thickening and probable left pleural effusion. There is also infiltrate and/or atelectasis suspected in the left lower lobe. The changes are progressive since June 22, 2020. Prior sternotomy and coronary artery stenting.. <Electronically signed by Isael Ramirez > 07/06/20 [id number]
== END ==
LOC: M RAD 14:31
PROVIDERS: ATTEND Internal Medicine Nephrology
DX: J90 Pleural effusion, not elsewhere classified (principal)

== ENCOUNTER → 2020-07-14 | Outpatient (CLI) | payer OTHER ==
[~2020-07-14] MED LIST changes: +ASPI81TA26 PO
[2020-07-14 13:34] LABS: INR 3.34
[2020-07-14 13:36] LABS: PARTIAL THROMBOPLASTIN TIME 87.5 SECONDS (24.2-38.5)
[2020-07-17 11:41] LABS: PROTHROMBIN TIME 34.6 SECONDS (12.5-14.3)
== END ==
LOC: M LAB 12:32
PROVIDERS: ATTEND Internal Medicine Nephrology
DX: N18.4 Chronic kidney disease, stage 4 (severe) (principal); J90 Pleural effusion, not elsewhere classified; Z01.812 Encounter for preprocedural laboratory examination

== ENCOUNTER → 2020-07-21 | Outpatient (CLI) | payer OTHER ==
[2020-07-21 16:10] LABS: INR 1.08
[2020-07-21 16:11] LABS: PARTIAL THROMBOPLASTIN TIME 35.4 SECONDS (24.2-38.5)
[2020-07-22 12:29] LABS: PROTHROMBIN TIME 14.2 SECONDS (12.5-14.3)
== END ==
LOC: M LAB 15:17
PROVIDERS: ATTEND Internal Medicine Nephrology
DX: Z01.818 Encounter for other preprocedural examination (principal); I25.5 Ischemic cardiomyopathy; J90 Pleural effusion, not elsewhere classified

== ENCOUNTER → 2020-07-22 | Outpatient (CLI) | payer OTHER ==
[~2020-07-22] MED LIST changes: +SODIUM BICARBONATE 8.4% INJ 50MEQ 50 ML VIAL As Ordered ONE
--- NOTE | 2020-07-22 12:47 | REP ---
INDICATION: POST LEFT THORA, 2 VIEW. COMPARISON: Comparison chest x-ray July 06, 2020.. TECHNIQUE: Two views. FINDINGS: Patient is status post attempted left thoracentesis. Lateral film shows moderate posterior pleural thickening is similar to the July 06, 2020 study. We were not able to withdraw any significant fluid. 1-2 cc of old blood. On the frontal radiograph and the left bases show slight improvement but there is still pleural thickening laterally and some blunting of the pleural angle. The right lung remains clear. IMPRESSION: Posterior pleural thickening persists after attempted at thoracentesis. Only 1-2 cc of old blood was retrieved. No complication is identified. <Electronically signed by Isael Ramirez > 07/22/20 [id number]
[2020-07-22 13:05] VITALS: BP 151/86
--- NOTE | 2020-07-22 14:36 | REP ---
INDICATION: PLEURAL EFFUSION COMPARISON: None. TECHNIQUE: The procedure was performed by Salma Butt [facility], under the direct supervision of Dr. Ramirez The risks and benefits of the procedure were explained to the patient and an informed consent was obtained both verbally and written. Directly prior to the start of the procedure a formal time-out was completed in the procedure room. Pleural fluid in left lung zone was localized using ultrasound guidance. This fluid looked complex and loculated. The skin was prepped and draped in a sterile fashion. Eleven ML of buffered lidocaine was used as a local anesthetic. Using ultrasound guidance an 8-Swiss multi side-hole catheter was inserted using trocar technique. FINDINGS: Two mL of red colored fluid was withdrawn and sent to the laboratory for further analysis. The patient tolerated the procedure well and there were no immediate complications. After the appropriate amount of monitored convalescence, the patient was discharged from the department. IMPRESSION: Ultrasound-guided thoracentesis. <Electronically signed by Salma Butt > 07/22/20 1431 <Electronically signed by Isael Ramirez > 07/22/20 1432
== END ==
LOC: M IRPRO 10:01
PROVIDERS: ATTEND Internal Medicine Nephrology
DX: J90 Pleural effusion, not elsewhere classified (principal); I25.5 Ischemic cardiomyopathy; N18.4 Chronic kidney disease, stage 4 (severe)

== ENCOUNTER → 2020-08-31 | Outpatient (REF) | payer OTHER ==
[~2020-08-31] MED LIST changes: -SODIUM BICARBONATE 8.4% INJ 50MEQ 50 ML VIAL As Ordered ONE
[2020-08-31 18:23] LABS: INR 2.07; PROTHROMBIN TIME 23.8 SECONDS (12.5-14.3)
== END ==
LOC: M LAB REF 16:50
PROVIDERS: ATTEND Internal Medicine Nephrology
DX: N18.4 Chronic kidney disease, stage 4 (severe) (principal); J90 Pleural effusion, not elsewhere classified; Z01.812 Encounter for preprocedural laboratory examination

== ENCOUNTER → 2021-02-15 | Outpatient (REF) | payer OTHER ==
[2021-02-15 17:58] LABS: MAGNESIUM LEVEL 2.2 MG/DL (1.8-2.4)
[2021-02-15 18:14] LABS: HEPATITIS B SURFACE ANTIBODY NEGATIVE (POSITIVE)
[2021-02-15 18:25] LABS: HEPATITIS B SURFACE ANTIGEN NEGATIVE (NEGATIVE)
[2021-02-15 18:54] LABS: HEPATITIS B CORE ANTIBODY IGM NEGATIVE (NEGATIVE)
== END ==
LOC: M LAB REF 17:34
PROVIDERS: ATTEND Internal Medicine Nephrology
DX: N18.5 Chronic kidney disease, stage 5 (principal)

== ENCOUNTER 2021-03-27 10:35 | Inpatient (IN) | payer OTHER ==
[~2021-03-27] VITALS: Ht 177.8 cm; Wt 90.2 kg
[2021-03-27] MEDS ORDERED: NS 1,000 ML IV ONE (12:35)
--- NOTE | 2021-03-27 12:52 | REP ---
INDICATION: sob COMPARISON: 07/06/2020 TECHNIQUE: PA and lateral. FINDINGS: Cardiac silhouette is normal. Evidence for prior sternotomy and CABG again noted. The lung winter demonstrate very subtle bilateral opacities (left greater than right) which may reflect multifocal pneumonia and correlation is required. Blunting to the left diaphragmatic surface and costophrenic angle is nonspecific but possibly chronic although small pleural reaction cannot be excluded. IMPRESSION: Cannot exclude subtle multifocal airspace disease. <Electronically signed by Hesham Gomez > 03/27/21 [id number]
[2021-03-27 13:26] LABS: HEMATOCRIT 48.3 % (42.0-52.0); HEMOGLOBIN 15.4 g/dl (13.5-17.5); MEAN CORPUSCULAR HEMOGLOBIN 27.7 pg (27.0-33.0); MEAN CORPUSCULAR HGB CONC 31.9 g/dl (32.0-36.5); PLATELET COUNT, AUTOMATED 142 10^3/uL (150-450); RED BLOOD COUNT 5.55 10^6/uL (4.30-6.10); WHITE BLOOD COUNT 3.3 10^3/uL (4.0-10.0)
[2021-03-27 13:36] LABS: INR 1.46; PROTHROMBIN TIME 18.2 SECONDS (12.7-14.5)
[2021-03-27] MEDS ORDERED: HumuLIN R (REGULAR) INSULIN (NovoLIN R) **100U/ML** PER UNIT IV ONE (13:40)
[2021-03-27 13:43] LABS: ALBUMIN 2.2 GM/DL (3.2-5.2); ALT/SGPT 24 U/L (12-78); BILIRUBIN,DIRECT < 0.1 MG/DL (0.0-0.2); BILIRUBIN,TOTAL 0.7 MG/DL (0.2-1.0); CPK CREATINE PHOSPHOKINASE 390 U/L (39-308); LIPASE 489 U/L (73-393); MB/CK RELATIVE INDEX 1.28 (< OR =4); TOTAL PROTEIN 6.1 GM/DL (6.4-8.2)
[2021-03-27 13:56] LABS: RSV AMPLIFICATION NEGATIVE (NEGATIVE)
[2021-03-27] MEDS ORDERED: SODIUM BICARBONATE 50 MEQ in NS 0.45% 1,000 ML IV SCH (14:00)
[2021-03-27 14:05] LABS: ATYPICAL LYMPH 1 % (0-5); LYMPHOCYTES 21 % (16-44); MONOCYTES 1 % (0-5); NEUTROPHILS 77 % (28-66)
[2021-03-27 14:06] LABS: PLATELET ESTIMATE NORMAL (NORMAL)
[2021-03-27 14:24] LABS: BLOOD UREA NITROGEN 84 MG/DL (7-18); CALCIUM LEVEL 8.2 MG/DL (8.5-10.1); CARBON DIOXIDE LEVEL 17 MEQ/L (21-32); CHLORIDE LEVEL 112 MEQ/L (98-107); CREATININE FOR GFR 6.25 MG/DL (0.70-1.30); GLOMERULAR FILTRATION RATE 10.1 (>56); GLUCOSE, FASTING 142 MG/DL (70-100); POTASSIUM SERUM 5.8 MEQ/L (3.5-5.1); SODIUM LEVEL 140 MEQ/L (136-145)
[2021-03-27] MEDS ORDERED: CARV12.5 PO (14:40)
[2021-03-27] MEDS ORDERED: EZET10TA21 PO (14:40)
[2021-03-27] MEDS ORDERED: HOME MED LIST COMPLETE! XX SCH (14:40)
[2021-03-27] MEDS ORDERED: MOM 30ML SUSPENSION UDC PO PRN (15:50)
[2021-03-27] MEDS ORDERED: MAALOX 30 ML SUSP *UDC PO PRN (15:50)
[2021-03-27] MEDS ORDERED: ACETAMINOPHEN TAB 650MG DOSE (2X325MG) PO PRN (15:50)
--- NOTE | 2021-03-27 16:20 | HPEPDOC ---
[facility] Medical History & Physical Date of Admission Mar 27, 2021 Date of Service: Mar 27, 2021 History and Physical CHIEF COMPLAINT: Shortness of breath HISTORY OF PRESENT ILLNESS: 50-year-old male with a past medical history of coronary artery disease status post CO at age 29-34 with stenting and CABG x4,, history of hypertension, chronic warfarin use for a an apical cardiac thrombus, CKD stage III, type 2 diabetes, obesity as well as tobacco dependence. Patient presents after a week and a half of having shortness of breath malaise weakness generalized fatigue as well as occasional loose stools. Patient is not vacc inated for Covid. Patient tested Covid positive in the ER on 03/27/2021. Patient follows with /Geoff for his cardiac needs as well as Dr. Jackson in nephrology clinic for CKD four. Last known creatinine recorded as baseline is 3.5. Patient states he saw both specialist approximate 1 month ago but was told by his insurance that he is no longer able to follow-up with them. Patient gives a very brief history otherwise feels frustrated with my questions. Patient states that he has had reduced p.o. intake for the last week and a half. He is unable to tell me exactly why he has not had adequate p.o. intake. Patient found to have a creatinine of 6.5. Dr. Jackson was consulted from the ER and recommended starting the patient on half-normal saline with one amp of sodium bicarbonate at 150 cc/h. Patient will be admitted to hospitalist service for the management of acute renal failure as well as COVID-19 infection. PAST MEDICAL HISTORY: CKD 4 CAD early onset with CO at age 31, 33. S/p stenting, CABG in 2014 cardiac thrombus, on chronic warfarin use Type 2 DM. Ischemic cardiomyopathy, last echo 06/2020 EG 20% with G2DD. SOCIAL HISTORY: Smoker Denies frequent etoh use denies illicit drug use FAMILY HISTORY: reviewed with patient, no pertinent family history provided. ALLERGIES: Please see below. REVIEW OF SYSTEMS: 10 point ROS conducted, relevant findings are noted in HPI. HOME MEDICATIONS: Please see below. PHYSICAL EXAMINATION: VITAL SIGNS: please see below General: NAD, comfortable. Appears flushed HEENT: PERRLA, EOMI, sclerae clear Neck: supple, normal ROM, no JVD Respiratory: lungs CTAB, no wheeze, no rales, no crackles CVS: RRR, normal S1, S2, no murmurs Abdo: soft, no masses, no hepatosplenomegaly, BS+, no rebound tenderness Extremities: no edema, pulses 2+ MSK: no joint deformities, normal ROM Neuro: no focal neuro deficits, moving all 4 extremities, CN2-12 intact. Strength 5/5 in all 4 extremities. No nystagmus. Psych: calm, cooperative, AAO x 3 LABORATORY DATA: See below. IMAGING: CXR (03/27/21): FINDINGS: Cardiac silhouette is normal. Evidence for prior sternotomy and CABG again noted. The lung winter demonstrate very subtle bilateral opacities (left greater than right) which may reflect multifocal pneumonia and correlation is required. Blunting to the left diaphragmatic surface and costophrenic angle is nonspecific but possibly chronic although small pleural reaction cannot be excluded. IMPRESSION: Cannot exclude subtle multifocal airspace disease. MICROBIOLOGY: Please see below. ASSESSMENT: 50-year-old male with a past medical history of coronary artery disease status post CO at age [age] with stenting and CABG x4,, history of hypertension, chronic warfarin use for a an apical cardiac thrombus, CKD stage III, type 2 diabetes, obesity as well as tobacco dependence. Admitted for management of acute renal failure secondary to reduced p.o. intake likely secondary to diarrhea from a COVID-19 infection. . PLAN: Acute renal failure on CKD: baseline Cr 3.5. 6.5 on arrival. Ordered renal US. UA. Dr. Jackson consulted from ER. Rec 0.45% NS with 50 meq sodium bicarb at 150 cc/hr. Has received 1L, will slow down rate to 80 cc/hr after 1L has been infused. Monitor BMP. Hold home dose torsemide. patient is oliguric, will place morfin. COVID-19 infection: hx of malaise, SOB, diarrhea for 1 week. having ~1 soft BM/day. Saturating well on RA. CXR showing possible pna, however, no fever, no WBC. Monitor clinically. Will not check procal due to acute renal failure. Ischemic cardiomyopathy: last echo 06/2020. EF 20%, G2DD. Sees Dr. Car. Reports insurance coverage issues. has refused ICD placement in the past. BNP 57384. Appears clinically euvolemic. Left ventricular Intracardiac Thrombus: on chronic warfarin therapy. INR subtherapeutic. Concerns over medication compliance. Med rec shows 2.5 mg PO QHS. Will resume. Daily INR. Hyperuricemia: c/w allopurinol. Anemia of chronic renal failure: Hgb 15.4. No acute intervention at this time. DM2: check a1c. Consistent carbo diet. FSBS, ISS AC and HS. Hypoglycemic precautions. Takes glipizide at home, held. CAD: c/w atorvastatin, coreg 12.5 mg BID, ezetimibe. Chronic HTN: resume coreg 12.5 mg BID. Hydralazine. GERD: resume PPI Dispo: pending clinical improvement. Vital Signs Vital Signs Date Time Temp Pulse Resp B/P (MAP) Pulse Ox O2 Delivery O2 Flow Rate FiO2 03/27/21 14:05 74 94 03/27/21 14:00 175/108 (130) 03/27/21 10:35 98.2 22 Room Air Laboratory Data Labs 24H Laboratory Tests 2 03/27/21 12:51: Neutrophils (%) (Auto) , Nucleated Red Blood Cells % (auto) 0.0, Neutrophils 77H, Lymphocytes (Manual) 21, Monocytes (Manual) 1, Atypical Lymphocytes 1, Red Blood Cell Morphology NORMAL, Platelet Estimate NORMAL, Anion Gap 11, Glomerular Filtration Rate 10.1L, Calcium Level 8.2L, Total Bilirubin 0.7, Direct Bilirubin < 0.1, Aspartate Amino Transf (AST/SGOT) 53H, Alanine Aminotransferase (ALT/SGPT) 24, Alkaline Phosphatase 173H, Total Creatine Kinase 390H, Creatine Kinase MB 5.0H, Creatine Kinase MB Relative Index 1.28, Troponin I 0.10, Total Protein 6.1L, Albumin 2.2L, Albumin/Globulin Ratio 0.6, Lipase 489H, Coronavirus (COVID-19)(PCR) POSITIVEA, Influenza Type A (RT-PCR) NEGATIVE, Influenza Type B (RT-PCR) NEGATIVE, Respiratory Syncytial Virus (PCR) NEGATIVE 03/27/21 12:52: Prothrombin Time 18.2H, Prothromb Time International Ratio 1.46, VB-[id number]-Type Natriuretic Peptide [id number] 03/27/21 13:17: POC Glucose (Misc Panel) 140H, POC Sodium (Misc Panel) 141, POC Potassium (Misc Panel) 5.9H, POC Chloride (Misc Panel) 110H, POC Total CO2 (Misc Panel) 19.0L, POC Blood Urea Nitrogen (Misc Panel 105H, POC Ionized Calcium (Misc Panel) 4.2L, POC Creatinine (Misc Panel) 6.6H, POC Hematocrit (Misc Panel) 52.0H CBC/BMP Laboratory Tests 03/27/21 12:51 Home Medications Scheduled Allopurinol (Allopurinol) 100 Mg Tablet, 100 MG PO QHS Aspirin (Aspirin EC) 81 Mg Tablet.dr, 81 MG PO DAILY Atorvastatin Calcium (Atorvastatin Calcium) 40 Mg Tablet, 40 MG PO QHS Calcitriol (Calcitriol) 0.25 Mcg Cap, 0.25 MCG PO 3XW SATURDAY, SATURDAY AND SATURDAY Carvedilol (Carvedilol) 12.5 Mg Tablet, 12.5 MG PO BID Cholecalciferol (Vitamin D3) (Vitamin D3) 125 Mcg Capsule, 125 MCG PO 2XW SATURDAY AND SATURDAY AT QHS Ezetimibe (Ezetimibe) 10 Mg Tablet, 10 MG PO QHS Glipizide (Glipizide) 5 Mg Tab, 5 MG PO DAILY Hydralazine HCl (Hydralazine HCl) 25 Mg Tablet, 25 MG PO BID Iron Polysaccharide Complex (Ferrex 150) 150 Mg Capsule, 150 MG PO 3XW SATURDAY, SATURDAY AND SATURDAY Magnesium Chloride (Mag64) 64 Mg Tablet.dr, 64 MG PO QHS Pantoprazole Sodium (Protonix) 20 Mg Tab, 20 MG PO QHS Sodium Bicarbonate (Sodium Bicarbonate) 325 Mg Tablet, 325 MG PO BID Torsemide (Torsemide) 20 Mg Tablet, 40 MG PO BID Warfarin Sodium (Warfarin Sodium) 5 Mg Tablet, 2.5 MG PO QHS Allergies Coded Allergies: metformin (Verified Adverse Reaction, Severe, pancreatitis, 06/22/20) sitagliptin (Verified Adverse Reaction, Severe, pancreatitis, 06/22/20) JALEESA KING MD Mar 27, 2021 16:20
[2021-03-27 17:45] VITALS: BP 138/85
[2021-03-27] MEDS ORDERED: DEXTROSE 50% 50 ML SYRINGE IV PRN (18:35)
[2021-03-27] MEDS ORDERED: GLUCOSE 4GM CHEW TABLET PO PRN (18:35)
[2021-03-27] MEDS ORDERED: GLUCAGON INJ 1MG VIAL SC PRN (18:35)
[2021-03-27] MEDS ORDERED: REMDESIVIR 200 MG in NS 250 ML IV ONE (20:00)
[2021-03-27] MEDS ORDERED: allopurinoL 100 MG TAB PO SCH (21:00)
--- NOTE | 2021-03-27 21:40 | ECGEPIP ---
[facility] - ED Test Date: 2021-03-27 Pat Name: GABRIEL SOSA Department: Room: - Gender: Male Manager Program Management: PAUL : 1970 Requested By: BERNARDA FENTON PA-C. Order Number: [id number] Reading MD: Kota Klein Measurements Intervals [place] Rate: 67 P: 61 AK: 158 QRS: 252 QRSD: 118 T: 98 QT: 470 QTc: 496 Interpretive Statements Normal sinus rhythm with sinus arrhythmia LEFT AXIS DEVIATION POOR R WAVE PROGRESSION SIMILAR TO 06/23/20 Electronically Signed on 03-27-2021 21:40:20 EDT by Kota Klein
[2021-03-27] MEDS ORDERED: SODIUM CHLORIDE 0.9% INJ 10 ML SYR IV ONE (22:00)
[2021-03-27 22:15] VITALS: BP 146/79
[2021-03-27] MEDS: CARVedilol 12.5 MG TAB PO SCH (22:27)
[2021-03-27] MEDS: ATORVASTATIN 20 MG TAB PO SCH (22:28)
[2021-03-27] MEDS: HEPARIN SOD (PORCINE) 5000UNITS/ML 1ML VIAL/SYRINGE SC SCH (22:28)
[2021-03-27] MEDS: **hydrALAZINE HCL** 25 MG TAB PO SCH (22:28)
[2021-03-27] MEDS: EZETIMIBE 10 MG TAB (ZETIA) PO SCH (22:29)
[2021-03-27] MEDS: PANTOPRAZOLE 20 MG TAB PO SCH (22:29)
[2021-03-27] MEDS: HumaLOG INSULIN (NovoLOG) PER UNIT SC SCH (22:29)
[2021-03-27] MEDS: WARFARIN SOD 2.5MG TAB PO SCH (22:31)
[2021-03-28] VITALS (8 sets, daily range): BP systolic 122–140; BP diastolic 67–75
[2021-03-28] MEDS: SODIUM BICARBONATE 50 MEQ in NS 0.45% 1,000 ML IV SCH ×2 (01:21→14:14)
[2021-03-28] MEDS: HEPARIN SOD (PORCINE) 5000UNITS/ML 1ML VIAL/SYRINGE SC SCH ×3 (06:33→22:15)
[2021-03-28] MEDS: HumaLOG INSULIN (NovoLOG) PER UNIT SC SCH ×4 (07:30→21:00)
[2021-03-28 08:00] LABS: HEMATOCRIT 40.8 % (42.0-52.0); MEAN CORPUSCULAR HEMOGLOBIN 27.7 pg (27.0-33.0); MEAN CORPUSCULAR HGB CONC 32.1 g/dl (32.0-36.5); MEAN CORPUSCULAR VOLUME 86.3 fl (80.0-96.0); PLATELET COUNT, AUTOMATED 154 10^3/uL (150-450); RED BLOOD COUNT 4.73 10^6/uL (4.30-6.10); WHITE BLOOD COUNT 3.4 10^3/uL (4.0-10.0)
[2021-03-28 08:10] LABS: HEMOGLOBIN 13.1 g/dl (13.5-17.5)
[2021-03-28 08:12] LABS: INR 1.83; PROTHROMBIN TIME 21.6 SECONDS (12.7-14.5)
[2021-03-28 08:14] LABS: PARTIAL THROMBOPLASTIN TIME 55.8 SECONDS (25.9-37.0)
[2021-03-28 08:15] LABS: D-DIMER QUANT 948.6 ng/ml (<500)
[2021-03-28 08:31] LABS: ALBUMIN 1.7 GM/DL (3.2-5.2); BILIRUBIN,TOTAL 0.5 MG/DL (0.2-1.0); C REACTIVE PROTEIN QUANTITATIV 4.07 MG/DL (0.00-0.30); CALCIUM LEVEL 7.7 MG/DL (8.5-10.1); CREATININE FOR GFR 5.08 MG/DL (0.70-1.30); GLOMERULAR FILTRATION RATE 12.9 (>56); POTASSIUM SERUM 4.1 MEQ/L (3.5-5.1); TOTAL PROTEIN 5.3 GM/DL (6.4-8.2); TROPONIN I 0.11 NG/ML (< 0.10)
[2021-03-28 08:50] LABS: ATYPICAL LYMPH 6 % (0-5); LYMPHOCYTES 14 % (16-44); MONOCYTES 10 % (0-5); MYELOCYTES 1 % (0-0); NEUTROPHILS 62 % (28-66); PLATELET CLUMPS SMALL AMT; PLATELET ESTIMATE DECREASED (NORMAL)
[2021-03-28] MEDS ORDERED: ASPIRIN 81MG ENTERIC TABLET PO SCH (09:00)
[2021-03-28] MEDS: **hydrALAZINE HCL** 25 MG TAB PO SCH ×2 (09:15→21:10)
[2021-03-28] MEDS: CARVedilol 12.5 MG TAB PO SCH ×2 (09:15→21:00)
--- NOTE | 2021-03-28 16:31 | IPNPDOC ---
Text Note Date of Service The patient was seen on 03/28/21. NOTE Subjective: No any acute events overnight. No fever or chills. Objective: GENERAL APPEARANCE: NAD HEENT: no scleral icterus, no JVD, EOMI CARDIOVASCULAR: S1S2 LUNGS: CTA ABDOMEN: soft & not tender w palpation MUSCULOSKELETAL: no cyanosis, no swelling INTEGUMENT: no generalized pallor NEUROLOGICAL: cranial nerve function from 2-12 intact, follows commands, speech not dysarthric Assessment and plan Patient is 50 years old male with past medical history of coronary artery disease status post CT at age 30-34 with stenting and CABG x4,, history of hypertension, chronic warfarin use for a an apical cardiac thrombus, CKD stage III, type 2 diabetes, obesity as well as tobacco dependence. Admitted for management of acute renal failure secondary to reduced p.o. intake likely secondary to diarrhea from a COVID-19 Infection. Acute on chronic kidney failure/metabolic acidosis Continue half of normal saline with sodium bicarb Appreciate/agree with nephrology consult Systolic CHF/Ischemic cardiomyopathy Secondary to ischemic cardiomyopathy last echo 06/2020. EF 20%. Patient refused ICD placement in the past BNP significantly elevated to 18,000 Patient euvolemic We will repeat echo COVID-19 Infection Patient is on room air History of Left ventricular Intracardiac thrombus Continue Coumadin Continue to monitor INR Gout Allopurinol on hold due to MADINA Type 2 diabetes Insulin sliding scale Glucose level under control We will check HbA1c CAD: c/w atorvastatin, coreg 12.5 mg BID, ezetimibe. Chronic HTN: resume coreg 12.5 mg BID. Hydralazine. GERD: resume PPI VS,Fishbone, I+O VS, Fishbone, I+O Laboratory Tests 03/28/21 07:12 Vital Signs Date Time Temp Pulse Resp B/P (MAP) Pulse Ox O2 Delivery O2 Flow Rate FiO2 03/28/21 12:56 98.8 65 25 140/70 (93) 96 Room Air I&O- Last 24 Hours up to 6 AM 03/28/21 06:00 Intake Total 2204 ml Output Total 1075 ml Balance 1129 ml GABY MCPHERSON DO Mar 28, 2021 16:31
[2021-03-28] MEDS: WARFARIN SOD 2.5MG TAB PO SCH (17:11)
[2021-03-28 19:44] LABS: HEMOGLOBIN A1c 8.9 %
[2021-03-28] MEDS ORDERED: REMDESIVIR 100 MG in NS 250 ML IV SCH (20:00)
[2021-03-28] MEDS ORDERED: SODIUM CHLORIDE 0.9% INJ 10 ML SYR IV SCH (21:00)
[2021-03-28] MEDS: EZETIMIBE 10 MG TAB (ZETIA) PO SCH (21:09)
[2021-03-28] MEDS: ATORVASTATIN 20 MG TAB PO SCH (21:10)
[2021-03-28] MEDS: PANTOPRAZOLE 20 MG TAB PO SCH (21:10)
[2021-03-29] MEDS: SODIUM BICARBONATE 50 MEQ in NS 0.45% 1,000 ML IV SCH (03:40)
[2021-03-29 03:43] VITALS: BP 146/78
[2021-03-29] MEDS: HEPARIN SOD (PORCINE) 5000UNITS/ML 1ML VIAL/SYRINGE SC SCH (05:40)
[2021-03-29 07:12] LABS: HEMOGLOBIN 13.5 g/dl (13.5-17.5); MEAN CORPUSCULAR HEMOGLOBIN 27.6 pg (27.0-33.0); MEAN CORPUSCULAR HGB CONC 32.1 g/dl (32.0-36.5); MEAN CORPUSCULAR VOLUME 85.7 fl (80.0-96.0); PLATELET COUNT, AUTOMATED 149 10^3/uL (150-450); WHITE BLOOD COUNT 3.6 10^3/uL (4.0-10.0)
[2021-03-29 07:35] LABS: ALBUMIN 1.8 GM/DL (3.2-5.2); BILIRUBIN,TOTAL 0.5 MG/DL (0.2-1.0); CALCIUM LEVEL 7.7 MG/DL (8.5-10.1); CREATININE FOR GFR 4.77 MG/DL (0.70-1.30); GLOMERULAR FILTRATION RATE 13.8 (>56); POTASSIUM SERUM 4.4 MEQ/L (3.5-5.1); TOTAL PROTEIN 4.9 GM/DL (6.4-8.2)
[2021-03-29 08:14] LABS: ATYPICAL LYMPH 1 % (0-5); BASOPHILS 1 % (0-1); LYMPHOCYTES 25 % (16-44); MONOCYTES 2 % (0-5); NEUTROPHILS 71 % (28-66)
[2021-03-29 08:15] LABS: PLATELET ESTIMATE NORMAL (NORMAL)
[2021-03-29 08:16] LABS: ANISOCYTOSIS 1+
--- NOTE | 2021-03-29 20:16 | DS.PDOC ---
Discharge Summary General Date of Admission Mar 27, 2021 at 15:48 Date of Discharge 03/29/21 Discharge Summary PROCEDURES PERFORMED DURING STAY: [None]. 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 HISTORY OF PRESENT ILLNESS: Patient is 50 years old male with past medical history of coronary artery disease status post OR at age 29-34 with stenting and CABG x4,, history of hypertension, chronic warfarin use for a an apical cardiac thrombus, CKD stage III, type 2 diabetes, obesity as well as tobacco dependence. Admitted for management of acute renal failure secondary to reduced p.o. intake likely secondary to diarrhea from a COVID-19 Infection. HOSPITAL COURSE: Patient left the hospital AGAINST MEDICAL ADVICE today DISCHARGE MEDICATIONS: Please see below. ALLERGIES: Please see below. PHYSICAL EXAMINATION ON DISCHARGE: VITAL SIGNS: Please see below. GENERAL: HEENT: NECK: CARDIOVASCULAR EXAMINATION: RESPIRATORY EXAMINATION: ABDOMINAL EXAMINATION: EXTREMITIES: SKIN: NEUROLOGICAL EXAMINATION: PSYCHIATRIC EXAMINATION: LABORATORY DATA: Please see below. IMAGING: PROGNOSIS: ACTIVITY: [As tolerated]. DIET: DISCHARGE PLAN: DISPOSITION: 07 Against Medical Advice. DISCHARGE INSTRUCTIONS: 1. . ITEMS TO FOLLOWUP ON ON OUTPATIENT: 1. . DISCHARGE CONDITION: [Stable]. TIME SPENT ON DISCHARGE: minutes. Vital Signs/I&Os Vital Signs Date Time Temp Pulse Resp B/P (MAP) Pulse Ox O2 Delivery O2 Flow Rate FiO2 03/29/21 03:43 97.1 62 24 146/78 (100) 95 Room Air I&O- Last 24 Hours up to 6 AM 03/29/21 06:00 Intake Total 2020 ml Output Total 1825 ml Balance 195 ml Laboratory Data Labs 24H Laboratory Tests 2 03/28/21 21:14: Bedside Glucose (Misc Panel) 178H 03/29/21 06:05: Neutrophils (%) (Auto) , Nucleated Red Blood Cells % (auto) 0.0, Neutrophils 71H, Lymphocytes (Manual) 25, Monocytes (Manual) 2, Basophils (Manual) 1, Atypi tim Lymphocytes 1, Anisocytosis 1+, Platelet Estimate NORMAL, Anion Gap 8, Glomerular Filtration Rate 13.8L, Calcium Level 7.7L, Magnesium Level 2.0, Total Bilirubin 0.5, Aspartate Amino Transf (AST/SGOT) 25, Alanine Aminotransferase (ALT/SGPT) 18, Alkaline Phosphatase 144H, Total Protein 4.9L, Albumin 1.8L, Albumin/Globulin Ratio 0.6 CBC/BMP Laboratory Tests 03/29/21 06:05 FSBS Laboratory Tests Test 03/28/21 21:14 Range/Units Bedside Glucose (Misc Panel) 178 70-105 MG/DL Discharge Medications Scheduled Allopurinol (Allopurinol) 100 Mg Tablet, 100 MG PO QHS, (Reported) Aspirin (Aspirin EC) 81 Mg Tablet.dr, 81 MG PO DAILY, (Reported) Atorvastatin Calcium (Atorvastatin Calcium) 40 Mg Tablet, 40 MG PO QHS, (Reported) Calcitriol (Calcitriol) 0.25 Mcg Cap, 0.25 MCG PO 3XW, (Reported) SATURDAY, SATURDAY AND SATURDAY Carvedilol (Carvedilol) 12.5 Mg Tablet, 12.5 MG PO BID, (Reported) Cholecalciferol (Vitamin D3) (Vitamin D3) 125 Mcg Capsule, 125 MCG PO 2XW, (Reported) SATURDAY AND SATURDAY AT QHS Ezetimibe (Ezetimibe) 10 Mg Tablet, 10 MG PO QHS, (Reported) Glipizide (Glipizide) 5 Mg Tab, 5 MG PO DAILY, (Reported) Hydralazine HCl (Hydralazine HCl) 25 Mg Tablet, 25 MG PO BID, (Reported) Iron Polysaccharide Complex (Ferrex 150) 150 Mg Capsule, 150 MG PO 3XW, (Reported) SATURDAY, SATURDAY AND SATURDAY Magnesium Chloride (Mag64) 64 Mg Tablet.dr, 64 MG PO QHS, (Reported) Pantoprazole Sodium (Protonix) 20 Mg Tab, 20 MG PO QHS, (Reported) Sodium Bicarbonate (Sodium Bicarbonate) 325 Mg Tablet, 325 MG PO BID, (Reported) Torsemide (Torsemide) 20 Mg Tablet, 40 MG PO BID, (Reported) Warfarin Sodium (Warfarin Sodium) 5 Mg Tablet, 2.5 MG PO QHS, (Reported) Allergies Coded Allergies: metformin (Verified Adverse Reaction, Severe, pancreatitis, 06/22/20) sitagliptin (Verified Adverse Reaction, Severe, pancreatitis, 06/22/20) GABY MCPHERSON DO Mar 29, 2021 20:16
== END 2021-03-29 09:15 | disposition left against medical advice (07) | DRG 137 ==
LOC: M ED 10:35 → M ED INP 15:48 → ENRESERV 15:57 → M 4MAIN 17:45
PROVIDERS: ADMIT Family Medicine; ATTEND Internal Medicine
PROC: XW033E5 Introduction of Remdesivir Anti-infective into Peripheral Vein, Percutaneous Approach, New Technology Group 5 (ICD-10-PCS; principal; 2021-03-27)
DX: U07.1 COVID-19 (principal); E87.2 Acidosis; I50.22 Chronic systolic (congestive) heart failure; N17.9 Acute kidney failure, unspecified; N18.30 Chronic kidney disease, stage 3 unspecified; E11.22 Type 2 diabetes mellitus with diabetic chronic kidney disease; I51.3 Intracardiac thrombosis, not elsewhere classified; I25.10 Atherosclerotic heart disease of native coronary artery without angina pectoris; I25.2 Old myocardial infarction; Z95.5 Presence of coronary angioplasty implant and graft; I13.0 Hypertensive heart and chronic kidney disease with heart failure and stage 1 through stage 4 chronic kidney disease, or unspecified chronic kidney disease; Z79.01 Long term (current) use of anticoagulants; E66.9 Obesity, unspecified; F17.210 Nicotine dependence, cigarettes, uncomplicated; I25.5 Ischemic cardiomyopathy; D63.1 Anemia in chronic kidney disease; E79.0 Hyperuricemia without signs of inflammatory arthritis and tophaceous disease; Z91.14 Patient's other noncompliance with medication regimen; K21.9 Gastro-esophageal reflux disease without esophagitis

== ENCOUNTER → 2021-07-19 | Outpatient (REF) | payer OTHER ==
[~2021-07-19] MED LIST changes: +CARV12.5 PO
== END ==
LOC: M LAB REF 15:40
PROVIDERS: ATTEND Surgery
DX: E11.621 Type 2 diabetes mellitus with foot ulcer (principal); L97.522 Non-pressure chronic ulcer of other part of left foot with fat layer exposed

== ENCOUNTER → 2021-08-02 | Outpatient (CLI) | payer OTHER ==
--- NOTE | 2021-08-02 15:02 | REP ---
INDICATION: JAMEEL ULCERS COMPARISON: None. TECHNIQUE: Real-time sonographic evaluation of the lower extremity arteries with Doppler FINDINGS: All numeric values represent peak systolic velocities in cm/SEC On the right: The DIANE is unobtainable. MOLECULAR PHYSICIST: 64 biphasic Profunda: 105 biphasic SFA proximal: 87-33 monophasic SFA mid: Occluded SFA distal: Occluded Popliteal: Revascularized, 27 biphasic Tibioperoneal trunk: 45 monophasic TIP PRINTER proximal: 45 monophasic TIP PRINTER distal: 28 monophasic Peroneal proximal: 24 monophasic Peroneal distal: 43 monophasic MITZY proximal: 72 monophasic MITZY distal: 24 monophasic On the left: The DIANE is unobtainable. MOLECULAR PHYSICIST: 303 triphasic Profunda: 140 biphasic SFA proximal: 165 biphasic SFA mid: 78 monophasic SFA distal: 66 monophasic Popliteal: 41 monophasic Tibioperoneal trunk: 27 monophasic TIP PRINTER proximal: 28 monophasic TIP PRINTER distal: 107 monophasic Peroneal proximal: 58 monophasic Peroneal distal: 82 monophasic MITZY proximal: Not seen MITZY distal: 41 monophasic Significant plaque formation was seen on the right foot from the common femoral artery to the superficial femoral artery/profunda junction. All vessels below the right near seen to be heavily calcified. On the left high velocities are identified as described above and external iliac arterial stenosis is likely. Significant calcified plaque formation was seen throughout. IMPRESSION: As above <Electronically signed by Wisam Gaviria > 08/02/21 [id number]
== END ==
LOC: M RAD 13:12
PROVIDERS: ATTEND Surgery
DX: L97.522 Non-pressure chronic ulcer of other part of left foot with fat layer exposed (principal)

== ENCOUNTER 2021-08-09 16:33 | Inpatient (IN) | payer OTHER ==
[~2021-08-09] VITALS: Ht 180.3 cm; Wt 95.9 kg
[~2021-08-09 16:33] MED LIST changes: -CEFD1CAP8 PO; +CEFD300C41 PO
[2021-08-09 21:24] LABS: BASO # 0.1 10^3/uL (0.0-0.2); BASO % 0.9 % (0.0-1.0); EOS # 0.3 10^3/uL (0.0-0.5); EOS % 3.2 % (0.0-3.0); HEMATOCRIT 32.9 % (42.0-52.0); LYMPH # 0.9 10^3/uL (1.5-5.0); LYMPH % 9.8 % (24.0-44.0); MEAN CORPUSCULAR HEMOGLOBIN 26.2 pg (27.0-33.0); MEAN CORPUSCULAR HGB CONC 30.4 g/dl (32.0-36.5); MEAN CORPUSCULAR VOLUME 86.1 fl (80.0-96.0); MONO # 0.6 10^3/uL (0.0-0.8); NEUTROPHILS # 6.8 10^3/uL (1.5-8.5); NEUTROPHILS % 78.8 % (36.0-66.0); PLATELET COUNT, AUTOMATED 258 10^3/uL (150-450); RED BLOOD COUNT 3.82 10^6/uL (4.30-6.10); WHITE BLOOD COUNT 8.7 10^3/uL (4.0-10.0)
[2021-08-09 21:36] LABS: C REACTIVE PROTEIN QUANTITATIV 9.01 MG/DL (0.00-0.30); CALCIUM LEVEL 8.4 MG/DL (8.5-10.1); CREATININE FOR GFR 4.92 MG/DL (0.70-1.30); GLOMERULAR FILTRATION RATE 13.3 (>56)
[2021-08-09 21:55] LABS: RSV AMPLIFICATION NEGATIVE (NEGATIVE)
[2021-08-09] MEDS ORDERED: cefTRIAXone SOD 1 GM in D5W MINI-BAG PLUS 50 ML IV ONE (22:00)
[2021-08-09] MEDS ORDERED: VANCOMYCIN HCL 2,000 MG in D5W 500 ML IV ONE (22:00)
[2021-08-09] MEDS ORDERED: MAALOX 30 ML SUSP *UDC PO PRN (22:55)
[2021-08-09] MEDS ORDERED: MOM 30ML SUSPENSION UDC PO PRN (22:55)
[2021-08-09] MEDS ORDERED: ACETAMINOPHEN TAB 650MG DOSE (2X325MG) PO PRN (22:55)
[2021-08-09] MEDS ORDERED: HOME MED LIST COMPLETE! XX SCH (23:00)
[2021-08-09] MEDS ORDERED: VANCOMYCIN HCL 1,000 MG, VIAL MATE ADAPTER 1 EACH in NS 250 ML IV ONE (23:00)
[2021-08-09] MEDS ORDERED: VANCOMYCIN HCL 1,000 MG, VIAL MATE ADAPTER 1 EACH in NS 250 ML IV SCH (23:55)
[2021-08-10] MEDS ORDERED: VANCOMYCIN HCL 1,000 MG, VIAL MATE ADAPTER 1 EACH in NS 250 ML IV ONE ×3
[2021-08-10] MEDS: CARVedilol 12.5 MG TAB PO SCH ×3 (03:40→20:07)
[2021-08-10] MEDS: **hydrALAZINE HCL** 25 MG TAB PO SCH ×3 (03:40→20:06)
[2021-08-10] MEDS: ASPIRIN 81MG ENTERIC TABLET PO SCH ×2 (03:41→20:04)
[2021-08-10] MEDS: ATORVASTATIN 20 MG TAB PO SCH ×2 (03:41→20:05)
[2021-08-10] MEDS: PANTOPRAZOLE 20 MG TAB PO SCH ×2 (03:41→20:05)
[2021-08-10] MEDS: TORSEMIDE 20 MG TAB PO SCH ×4 (03:41→20:05)
[2021-08-10] MEDS: EZETIMIBE 10MG TABLET (ZETIA) PO SCH ×2 (03:41→20:05)
[2021-08-10] MEDS: allopurinoL 100 MG TAB PO SCH ×2 (03:42→20:06)
[2021-08-10] MEDS ORDERED: VANCOMYCIN INTERMITTENT/PULSE DOSING BY CLINICAL PHARMACIST PER DOSING PROTOCOL XX SCH (05:00)
[2021-08-10] MEDS ORDERED: HEPARIN SOD (PORCINE) 5000UNITS/ML 1ML VIAL/SYRINGE SC SCH ×2 (06:00)
[2021-08-10 06:34] VITALS: BP 147/94
[2021-08-10] MEDS ORDERED: DEXTROSE 50% 50 ML SYRINGE IV PRN (07:25)
[2021-08-10] MEDS ORDERED: GLUCAGON INJ 1MG VIAL SC PRN (07:25)
[2021-08-10] MEDS ORDERED: GLUCOSE 4GM CHEW TABLET PO PRN (07:25)
[2021-08-10] MEDS: HumaLOG INSULIN (NovoLOG) PER UNIT SC SCH ×3 (07:30→17:30)
[2021-08-10 08:13] LABS: BASO # 0.1 10^3/uL (0.0-0.2); BASO % 0.9 % (0.0-1.0); EOS # 0.3 10^3/uL (0.0-0.5); EOS % 3.9 % (0.0-3.0); HEMATOCRIT 33.1 % (42.0-52.0); HEMOGLOBIN 10.1 g/dl (13.5-17.5); LYMPH # 0.8 10^3/uL (1.5-5.0); LYMPH % 10.9 % (24.0-44.0); MEAN CORPUSCULAR HEMOGLOBIN 26.3 pg (27.0-33.0); MEAN CORPUSCULAR HGB CONC 30.5 g/dl (32.0-36.5); MEAN CORPUSCULAR VOLUME 86.2 fl (80.0-96.0); MONO # 0.5 10^3/uL (0.0-0.8); MONO % 6.9 % (2.0-8.0); NEUTROPHILS # 5.7 10^3/uL (1.5-8.5); NEUTROPHILS % 77.1 % (36.0-66.0); PLATELET COUNT, AUTOMATED 245 10^3/uL (150-450); RED BLOOD COUNT 3.84 10^6/uL (4.30-6.10); WHITE BLOOD COUNT 7.4 10^3/uL (4.0-10.0)
[2021-08-10 08:24] LABS: INR 2.68; PROTHROMBIN TIME 28.8 SECONDS (12.7-14.5)
[2021-08-10 08:25] LABS: PARTIAL THROMBOPLASTIN TIME 54.7 SECONDS (25.9-37.0)
[2021-08-10 08:36] LABS: ALBUMIN 2.1 GM/DL (3.2-5.2); BILIRUBIN,TOTAL 0.5 MG/DL (0.2-1.0); CALCIUM LEVEL 8.6 MG/DL (8.5-10.1); CREATININE FOR GFR 4.79 MG/DL (0.70-1.30); GLOMERULAR FILTRATION RATE 13.7 (>56); MAGNESIUM LEVEL 2.1 MG/DL (1.8-2.4); POTASSIUM SERUM 4.5 MEQ/L (3.5-5.1); TOTAL PROTEIN 5.7 GM/DL (6.4-8.2)
[2021-08-10] MEDS: cefTRIAXone SOD 1 GM in D5W MINI-BAG PLUS 50 ML IV SCH (09:05)
[2021-08-10 12:47] LABS: PERCENT SATURATION 10.8 % (19.7-50.0)
[2021-08-10 14:00] VITALS: BP 148/91
[2021-08-10] MEDS ORDERED: BUPIVACAINE HCL 0.5% 30 ML VIAL As Ordered ONE (15:51)
[2021-08-10] MEDS ORDERED: LIDOCAINE 1% MDV 20ML VIAL As Ordered ONE (15:51)
[2021-08-10] MEDS ORDERED: LIDOCAINE 2% 100MG/5ML SDV (FOR ANES.) As Ordered ONE (15:53)
[2021-08-10] MEDS ORDERED: propofoL 500 MG/50 ML VIAL As Ordered ONE (15:53)
[2021-08-10] MEDS ORDERED: MIDAZOLAM INJ 2MG/2ML VIAL (J2250 PER 1MG) As Ordered ONE (15:54)
[2021-08-10] MEDS ORDERED: fentaNYL 100 MCG/2 ML INJECTION (J3010) As Ordered ONE (15:55)
[2021-08-10] MEDS ORDERED: BALANCED SALT SOLN OPHTH 15 ML BTL As Ordered ONE (16:40)
[2021-08-10] MEDS: oxyCODONE 5MG TAB PO PRN ×2 (17:53→18:44)
[2021-08-10] MEDS ORDERED: fentaNYL 100 MCG/2 ML INJECTION (J3010) IV PRN (17:55)
[2021-08-10] MEDS ORDERED: LR 1,000 ML IV SCH (17:55)
[2021-08-10] MEDS ORDERED: ONDANSETRON 4MG/2ML VIAL IV PRN (17:55)
[2021-08-10 18:20] VITALS: BP 156/92
[2021-08-10 19:20] VITALS: BP 166/93
[2021-08-10] MEDS: D5W/0.45% SODIUM CHLORIDE 1,000 ML IV SCH (20:04)
[2021-08-10 20:20] VITALS: BP 163/93
[2021-08-10] MEDS ORDERED: HumaLOG INSULIN (NovoLOG) PER UNIT SC SCH (21:00)
[2021-08-10 21:30] VITALS: BP 163/92
[2021-08-11 02:00] VITALS: BP 145/88
[2021-08-11 06:00] VITALS: BP 146/85
[2021-08-11 07:10] LABS: HEMATOCRIT 32.7 % (42.0-52.0); HEMOGLOBIN 9.9 g/dl (13.5-17.5); MEAN CORPUSCULAR HEMOGLOBIN 26.1 pg (27.0-33.0); MEAN CORPUSCULAR HGB CONC 30.3 g/dl (32.0-36.5); MEAN CORPUSCULAR VOLUME 86.1 fl (80.0-96.0); PLATELET COUNT, AUTOMATED 244 10^3/uL (150-450); WHITE BLOOD COUNT 7.5 10^3/uL (4.0-10.0)
[2021-08-11 07:25] LABS: INR 2.33
[2021-08-11 07:26] LABS: PARTIAL THROMBOPLASTIN TIME 59.5 SECONDS (25.9-37.0)
[2021-08-11 07:41] LABS: BILIRUBIN,TOTAL 0.4 MG/DL (0.2-1.0); CALCIUM LEVEL 8.1 MG/DL (8.5-10.1); CREATININE FOR GFR 4.63 MG/DL (0.70-1.30); GLOMERULAR FILTRATION RATE 14.2 (>56); POTASSIUM SERUM 4.7 MEQ/L (3.5-5.1); TOTAL PROTEIN 5.4 GM/DL (6.4-8.2)
[2021-08-11] MEDS: cefTRIAXone SOD 1 GM in D5W MINI-BAG PLUS 50 ML IV SCH (08:11)
[2021-08-11] MEDS: HumaLOG INSULIN (NovoLOG) PER UNIT SC SCH ×3 (08:12→17:10)
[2021-08-11] MEDS: CARVedilol 12.5 MG TAB PO SCH ×2 (08:13→21:10)
[2021-08-11] MEDS: **hydrALAZINE HCL** 25 MG TAB PO SCH ×2 (08:13→21:11)
[2021-08-11] MEDS: TORSEMIDE 20 MG TAB PO SCH ×2 (08:13→21:11)
[2021-08-11 10:00] VITALS: BP 148/88
[2021-08-11] MEDS ORDERED: VANCOMYCIN HCL 750 MG, VIAL MATE ADAPTER 1 EACH in NS 250 ML IV ONE (10:00)
[2021-08-11] MEDS: FERROUS GLUCONATE 324 MG TAB PO SCH ×2 (12:40→21:10)
[2021-08-11 14:00] VITALS: BP 147/86
[2021-08-11] MEDS: D5W/0.45% SODIUM CHLORIDE 1,000 ML IV SCH (14:26)
[2021-08-11] MEDS: WARFARIN SOD 2.5MG TAB PO SCH (17:10)
[2021-08-11] MEDS: ATORVASTATIN 20 MG TAB PO SCH (21:10)
[2021-08-11] MEDS: ASPIRIN 81MG ENTERIC TABLET PO SCH (21:10)
[2021-08-11] MEDS: PANTOPRAZOLE 20 MG TAB PO SCH (21:11)
[2021-08-11] MEDS: allopurinoL 100 MG TAB PO SCH (21:11)
[2021-08-11] MEDS: EZETIMIBE 10MG TABLET (ZETIA) PO SCH (21:11)
[2021-08-11 22:00] VITALS: BP 169/85
[2021-08-12] MEDS: D5W/0.45% SODIUM CHLORIDE 1,000 ML IV SCH (05:32)
[2021-08-12 06:00] VITALS: BP 156/82
[2021-08-12 07:08] LABS: HEMATOCRIT 31.5 % (42.0-52.0); HEMOGLOBIN 9.4 g/dl (13.5-17.5); MEAN CORPUSCULAR HEMOGLOBIN 25.8 pg (27.0-33.0); MEAN CORPUSCULAR HGB CONC 29.8 g/dl (32.0-36.5); MEAN CORPUSCULAR VOLUME 86.3 fl (80.0-96.0); PLATELET COUNT, AUTOMATED 249 10^3/uL (150-450); RED BLOOD COUNT 3.65 10^6/uL (4.30-6.10); WHITE BLOOD COUNT 6.2 10^3/uL (4.0-10.0)
[2021-08-12 07:27] LABS: INR 1.99
[2021-08-12 07:28] LABS: CALCIUM LEVEL 8.4 MG/DL (8.5-10.1); CREATININE FOR GFR 4.76 MG/DL (0.70-1.30); GLOMERULAR FILTRATION RATE 13.8 (>56); POTASSIUM SERUM 4.5 MEQ/L (3.5-5.1)
[2021-08-12] MEDS: FERROUS GLUCONATE 324 MG TAB PO SCH ×2 (08:52→20:23)
[2021-08-12] MEDS: **hydrALAZINE HCL** 25 MG TAB PO SCH ×2 (08:52→20:23)
[2021-08-12] MEDS: TORSEMIDE 20 MG TAB PO SCH ×2 (08:53→20:23)
[2021-08-12] MEDS: cefTRIAXone SOD 1 GM in D5W MINI-BAG PLUS 50 ML IV SCH (08:53)
[2021-08-12] MEDS: CARVedilol 12.5 MG TAB PO SCH ×2 (08:53→20:24)
[2021-08-12] MEDS: HumaLOG INSULIN (NovoLOG) PER UNIT SC SCH ×3 (08:53→17:10)
[2021-08-12] MEDS ORDERED: VANCOMYCIN HCL 500 MG in D5W MINI-BAG PLUS 100 ML IV SCH (10:00)
[2021-08-12 14:00] VITALS: BP 155/88
[2021-08-12] MEDS: WARFARIN SOD 2.5MG TAB PO SCH (17:10)
[2021-08-12] MEDS: allopurinoL 100 MG TAB PO SCH (20:23)
[2021-08-12] MEDS: PANTOPRAZOLE 20 MG TAB PO SCH (20:23)
[2021-08-12] MEDS: ASPIRIN 81MG ENTERIC TABLET PO SCH (20:24)
[2021-08-12] MEDS: EZETIMIBE 10MG TABLET (ZETIA) PO SCH (20:24)
[2021-08-12] MEDS: ATORVASTATIN 20 MG TAB PO SCH (20:24)
[2021-08-12 21:25] VITALS: BP 154/88
[2021-08-13 06:00] VITALS: BP 154/89
[2021-08-13 06:59] LABS: HEMATOCRIT 31.8 % (42.0-52.0); HEMOGLOBIN 9.7 g/dl (13.5-17.5); MEAN CORPUSCULAR HEMOGLOBIN 25.9 pg (27.0-33.0); MEAN CORPUSCULAR HGB CONC 30.5 g/dl (32.0-36.5); PLATELET COUNT, AUTOMATED 252 10^3/uL (150-450); RED BLOOD COUNT 3.74 10^6/uL (4.30-6.10); WHITE BLOOD COUNT 6.5 10^3/uL (4.0-10.0)
[2021-08-13 07:11] LABS: INR 1.78; PROTHROMBIN TIME 21.2 SECONDS (12.7-14.5)
[2021-08-13 07:18] LABS: CALCIUM LEVEL 8.5 MG/DL (8.5-10.1); CREATININE FOR GFR 4.95 MG/DL (0.70-1.30); GLOMERULAR FILTRATION RATE 13.2 (>56); POTASSIUM SERUM 4.4 MEQ/L (3.5-5.1)
[2021-08-13] MEDS: CARVedilol 12.5 MG TAB PO SCH ×2 (08:45→20:03)
[2021-08-13] MEDS: HumaLOG INSULIN (NovoLOG) PER UNIT SC SCH ×3 (08:45→17:05)
[2021-08-13] MEDS: **hydrALAZINE HCL** 25 MG TAB PO SCH ×2 (08:46→20:02)
[2021-08-13] MEDS: FERROUS GLUCONATE 324 MG TAB PO SCH ×2 (08:46→20:03)
[2021-08-13] MEDS: SODIUM BICARBONATE 325 MG TAB PO SCH ×2 (08:47→20:02)
[2021-08-13] MEDS ORDERED: TORSEMIDE 20 MG TAB PO SCH (09:00)
[2021-08-13 14:00] VITALS: BP 146/87
[2021-08-13] MEDS ORDERED: WARFARIN SOD 3MG TAB PO SCH (17:00)
[2021-08-13] MEDS: DOXYCYCLINE HYCLATE 100 MG in D5W MINI-BAG PLUS 100 ML IV SCH (17:04)
[2021-08-13] MEDS: ATORVASTATIN 20 MG TAB PO SCH (20:01)
[2021-08-13] MEDS: EZETIMIBE 10MG TABLET (ZETIA) PO SCH (20:02)
[2021-08-13] MEDS: ASPIRIN 81MG ENTERIC TABLET PO SCH (20:02)
[2021-08-13] MEDS: PANTOPRAZOLE 20 MG TAB PO SCH (20:02)
[2021-08-13] MEDS: allopurinoL 100 MG TAB PO SCH (20:03)
[2021-08-13 21:28] VITALS: BP 166/91
[2021-08-14] MEDS: DOXYCYCLINE HYCLATE 100 MG in D5W MINI-BAG PLUS 100 ML IV SCH ×2 (05:15→17:24)
[2021-08-14 05:52] LABS: HEMATOCRIT 31.9 % (42.0-52.0); HEMOGLOBIN 9.7 g/dl (13.5-17.5); MEAN CORPUSCULAR HEMOGLOBIN 26.2 pg (27.0-33.0); MEAN CORPUSCULAR HGB CONC 30.4 g/dl (32.0-36.5); MEAN CORPUSCULAR VOLUME 86.2 fl (80.0-96.0); PLATELET COUNT, AUTOMATED 259 10^3/uL (150-450); WHITE BLOOD COUNT 6.7 10^3/uL (4.0-10.0)
[2021-08-14 06:07] LABS: INR 1.79; PROTHROMBIN TIME 21.2 SECONDS (12.7-14.5)
[2021-08-14 06:17] LABS: CALCIUM LEVEL 8.3 MG/DL (8.5-10.1); CREATININE FOR GFR 5.09 MG/DL (0.70-1.30); GLOMERULAR FILTRATION RATE 12.8 (>56); POTASSIUM SERUM 4.9 MEQ/L (3.5-5.1)
[2021-08-14 06:19] VITALS: BP 166/94
[2021-08-14] MEDS: HumaLOG INSULIN (NovoLOG) PER UNIT SC SCH ×3 (08:25→16:30)
[2021-08-14] MEDS: SODIUM BICARBONATE 325 MG TAB PO SCH ×2 (08:25→20:11)
[2021-08-14] MEDS: FERROUS GLUCONATE 324 MG TAB PO SCH ×2 (08:25→20:10)
[2021-08-14] MEDS: CARVedilol 12.5 MG TAB PO SCH ×2 (08:26→20:10)
[2021-08-14] MEDS: TORSEMIDE 20 MG TAB PO SCH (08:26)
[2021-08-14] MEDS: **hydrALAZINE HCL** 25 MG TAB PO SCH ×3 (08:27→20:11)
[2021-08-14 14:00] VITALS: BP 150/91
[2021-08-14] MEDS ORDERED: WARFARIN SOD 4MG TAB PO SCH (17:00)
[2021-08-14] MEDS: PANTOPRAZOLE 20 MG TAB PO SCH (20:10)
[2021-08-14] MEDS: EZETIMIBE 10MG TABLET (ZETIA) PO SCH (20:10)
[2021-08-14] MEDS: ASPIRIN 81MG ENTERIC TABLET PO SCH (20:11)
[2021-08-14] MEDS: ATORVASTATIN 20 MG TAB PO SCH (20:11)
[2021-08-14] MEDS: allopurinoL 100 MG TAB PO SCH (20:11)
[2021-08-14 22:00] VITALS: BP 153/92
[2021-08-15] MEDS: DOXYCYCLINE HYCLATE 100 MG in D5W MINI-BAG PLUS 100 ML IV SCH (05:39)
[2021-08-15 06:00] VITALS: BP 153/93
[2021-08-15 06:29] LABS: HEMOGLOBIN 9.6 g/dl (13.5-17.5); MEAN CORPUSCULAR HEMOGLOBIN 26.6 pg (27.0-33.0); MEAN CORPUSCULAR VOLUME 85.9 fl (80.0-96.0); PLATELET COUNT, AUTOMATED 238 10^3/uL (150-450); RED BLOOD COUNT 3.61 10^6/uL (4.30-6.10); WHITE BLOOD COUNT 6.8 10^3/uL (4.0-10.0)
[2021-08-15 06:44] LABS: INR 1.87; PROTHROMBIN TIME 21.9 SECONDS (12.7-14.5)
[2021-08-15 06:53] LABS: CALCIUM LEVEL 8.5 MG/DL (8.5-10.1); CREATININE FOR GFR 4.89 MG/DL (0.70-1.30); GLOMERULAR FILTRATION RATE 13.4 (>56); POTASSIUM SERUM 4.5 MEQ/L (3.5-5.1)
[2021-08-15] MEDS ORDERED: WARF-20 PO (07:37)
[2021-08-15] MEDS ORDERED: PROB1CAP10 PO (07:38)
[2021-08-15] MEDS ORDERED: AUGM875T28 PO (07:38)
[2021-08-15] MEDS: HumaLOG INSULIN (NovoLOG) PER UNIT SC SCH (08:12)
[2021-08-15] MEDS: SODIUM BICARBONATE 325 MG TAB PO SCH (08:13)
[2021-08-15] MEDS: TORSEMIDE 20 MG TAB PO SCH (08:13)
[2021-08-15] MEDS: FERROUS GLUCONATE 324 MG TAB PO SCH (08:13)
[2021-08-15 08:14] VITALS: BP 153/78
[2021-08-15] MEDS: **hydrALAZINE HCL** 25 MG TAB PO SCH (08:14)
[2021-08-15] MEDS: CARVedilol 12.5 MG TAB PO SCH (08:14)
== END 2021-08-15 10:15 | disposition home or self-care (01) | DRG 314 ==
LOC: M ED 16:33 → M ED INP 22:53 → M MS5PR 08-10 05:39
PROVIDERS: ADMIT Family Medicine; ATTEND Internal Medicine
PROC: 0Y6Q0Z0 Detachment at Left 1st Toe, Complete, Open Approach (ICD-10-PCS; principal; 2021-08-10 16:00)
DX: E11.52 Type 2 diabetes mellitus with diabetic peripheral angiopathy with gangrene (principal); N18.4 Chronic kidney disease, stage 4 (severe); I96 Gangrene, not elsewhere classified; I13.0 Hypertensive heart and chronic kidney disease with heart failure and stage 1 through stage 4 chronic kidney disease, or unspecified chronic kidney disease; N17.9 Acute kidney failure, unspecified; M86.172 Other acute osteomyelitis, left ankle and foot; I51.3 Intracardiac thrombosis, not elsewhere classified; E87.2 Acidosis; I50.9 Heart failure, unspecified; E11.621 Type 2 diabetes mellitus with foot ulcer; E11.69 Type 2 diabetes mellitus with other specified complication; N25.81 Secondary hyperparathyroidism of renal origin; K21.9 Gastro-esophageal reflux disease without esophagitis; D63.1 Anemia in chronic kidney disease; I25.10 Atherosclerotic heart disease of native coronary artery without angina pectoris; I25.2 Old myocardial infarction; Z95.2 Presence of prosthetic heart valve; Z95.1 Presence of aortocoronary bypass graft; Z79.01 Long term (current) use of anticoagulants; E66.9 Obesity, unspecified; F17.200 Nicotine dependence, unspecified, uncomplicated; Z79.82 Long term (current) use of aspirin; Z79.899 Other long term (current) drug therapy; Z88.8 Allergy status to other drugs, medicaments and biological substances; I25.5 Ischemic cardiomyopathy; M10.9 Gout, unspecified

== ENCOUNTER → 2021-08-09 | Outpatient (REF) | payer OTHER | LOC: M LAB REF 18:35 | PROVIDERS: ATTEND Surgery | DX: E11.621 Type 2 diabetes mellitus with foot ulcer (principal); L97.522 Non-pressure chronic ulcer of other part of left foot with fat layer exposed ==

== ENCOUNTER → 2021-08-18 | Outpatient (CLI) | payer OTHER ==
[~2021-08-18] MED LIST changes: +AUGM875T28 PO; +PROB1CAP10 PO; +WARF-20 PO
== END ==
LOC: M LABSMTC 10:14
PROVIDERS: ATTEND Anesthesiology
DX: Z01.812 Encounter for preprocedural laboratory examination (principal); Z20.822 Contact with and (suspected) exposure to COVID-19

== ENCOUNTER → 2021-09-20 | Outpatient (REF) | payer OTHER ==
[2021-09-20 19:33] LABS: HEPATITIS B CORE ANTIBODY IGM NEGATIVE (NEGATIVE); HEPATITIS B SURFACE ANTIBODY NEGATIVE (POSITIVE); HEPATITIS B SURFACE ANTIGEN NEGATIVE (NEGATIVE); HEPATITIS C VIRUS ABY INDEX 0.1 INDEX (<0.8)
== END ==
LOC: M LAB REF 16:43
PROVIDERS: ATTEND Nurse Practitioner Family
DX: N18.5 Chronic kidney disease, stage 5 (principal)

== ENCOUNTER → 2021-10-31 | Outpatient (POV) | payer OTHER ==
[~2021-10-31] VITALS: Ht 177.8 cm; Wt 104.5 kg
[2021-10-31 10:30] VITALS: BP 176/86
== END ==
LOC: M IRPOV 10:10
PROVIDERS: ATTEND Radiology Diagnostic Radiology
DX: T87.89 Other complications of amputation stump (principal); I70.203 Unspecified atherosclerosis of native arteries of extremities, bilateral legs; E11.51 Type 2 diabetes mellitus with diabetic peripheral angiopathy without gangrene; E11.22 Type 2 diabetes mellitus with diabetic chronic kidney disease; F17.210 Nicotine dependence, cigarettes, uncomplicated; N18.9 Chronic kidney disease, unspecified; I25.2 Old myocardial infarction; Z79.01 Long term (current) use of anticoagulants; Z79.82 Long term (current) use of aspirin; Z98.61 Coronary angioplasty status; Z99.2 Dependence on renal dialysis

== ENCOUNTER → 2021-11-27 | Outpatient (REF) | payer MEDICARE, OTHER ==
[~2021-11-27] MED LIST changes: +LOSA50TA28 PO; +WARF-18 PO
== END ==
LOC: M LAB REF 12:15
PROVIDERS: ATTEND Podiatrist Foot & Ankle Surgery
DX: L03.032 Cellulitis of left toe (principal)

== ENCOUNTER → 2021-12-11 | Outpatient (CLI) | payer OTHER | LOC: M LABSMTC 09:15 | PROVIDERS: ATTEND Anesthesiology | DX: Z20.828 Contact with and (suspected) exposure to other viral communicable diseases (principal); Z11.59 Encounter for screening for other viral diseases ==

== ENCOUNTER → 2021-12-12 | Outpatient (REF) | payer MEDICARE, OTHER | LOC: M SFHCWOUN 18:20 | PROVIDERS: ATTEND Surgery | DX: E11.621 Type 2 diabetes mellitus with foot ulcer (principal) ==

== ENCOUNTER → 2021-12-27 | Outpatient (REF) | payer MEDICARE, OTHER ==
[~2021-12-27] MED LIST changes: +ACID1TAB5 PO; +AURY1TAB PO; +CEPH500C PO; +D 50CAP2 PO; +FARX1TAB3 PO; +TORS100T PO
== END ==
LOC: M SFHCWOUN 15:42
PROVIDERS: ATTEND Surgery
DX: L97.522 Non-pressure chronic ulcer of other part of left foot with fat layer exposed (principal); I96 Gangrene, not elsewhere classified

== ENCOUNTER 2022-01-04 19:18 | Inpatient (IN) | payer MEDICARE, OTHER ==
[~2022-01-04] VITALS: Ht 180.3 cm; Wt 96.0 kg
[2022-01-04] MEDS: ATORVASTATIN 20 MG TAB PO SCH (21:00)
[2022-01-04] MEDS: PANTOPRAZOLE 20 MG TAB PO SCH (21:00)
[2022-01-04] MEDS: allopurinoL 100 MG TAB PO SCH (21:00)
[2022-01-04] MEDS: EZETIMIBE 10MG TABLET (ZETIA) PO SCH (21:00)
[2022-01-04] MEDS: CALCITRIOL 0.25 MCG CAP (S0169) PO SCH (21:00)
[2022-01-04] MEDS ORDERED: MORPHINE 4 MG/ML 1ML VIAL/SYRINGE IV ONE (23:40)
[2022-01-04] MEDS ORDERED: PIPERACILLIN/TAZOBACTAM SOD 2.25 GM in D5W MINI-BAG PLUS 50 ML IV ONE (23:40)
[2022-01-04] MEDS ORDERED: NS 1,000 ML IV ONE (23:40)
[2022-01-05] MEDS ORDERED: WARF-23 PO (00:34)
[2022-01-05] MEDS ORDERED: CEPH500C PO (00:34)
[2022-01-05] MEDS ORDERED: TORS100T PO (00:34)
[2022-01-05 00:35] LABS: BASO # 0.1 10^3/uL (0.0-0.2); BASO % 0.6 % (0.0-1.0); EOS # 0.3 10^3/uL (0.0-0.5); EOS % 2.4 % (0.0-3.0); HEMATOCRIT 32.5 % (42.0-52.0); HEMOGLOBIN 9.9 g/dl (13.5-17.5); LYMPH # 0.6 10^3/uL (1.5-5.0); LYMPH % 5.2 % (24.0-44.0); MEAN CORPUSCULAR HEMOGLOBIN 25.8 pg (27.0-33.0); MEAN CORPUSCULAR HGB CONC 30.5 g/dl (32.0-36.5); MEAN CORPUSCULAR VOLUME 84.6 fl (80.0-96.0); MONO # 0.6 10^3/uL (0.0-0.8); MONO % 5.2 % (2.0-8.0); NEUTROPHILS # 10.4 10^3/uL (1.5-8.5); NEUTROPHILS % 85.5 % (36.0-66.0); PLATELET COUNT, AUTOMATED 351 10^3/uL (150-450); RED BLOOD COUNT 3.84 10^6/uL (4.30-6.10); WHITE BLOOD COUNT 12.1 10^3/uL (4.0-10.0)
[2022-01-05] MEDS ORDERED: HOME MED LIST COMPLETE! XX SCH (00:40)
[2022-01-05 01:00] LABS: ERYTHROCYTE SEDIMENTATION RATE 77 mm/hr (0-20)
[2022-01-05 01:17] LABS: C REACTIVE PROTEIN QUANTITATIV 20.1 MG/DL (0.00-0.30); CALCIUM LEVEL 8.9 MG/DL (8.5-10.1); CREATININE FOR GFR 7.39 MG/DL (0.70-1.30); GLOMERULAR FILTRATION RATE 8.3 (>56); POTASSIUM SERUM 4.2 MEQ/L (3.5-5.1)
[2022-01-05] MEDS ORDERED: NS 1,000 ML IV SCH (02:00)
[2022-01-05] MEDS ORDERED: ONDANSETRON 4MG/2ML VIAL IV PRN ×2 (02:00→18:30)
[2022-01-05] MEDS ORDERED: GLUCAGON INJ 1MG VIAL SC PRN (02:55)
[2022-01-05] MEDS ORDERED: GLUCOSE 4GM CHEW TABLET PO PRN (02:55)
[2022-01-05] MEDS ORDERED: VANCOMYCIN HCL 1,000 MG, VIAL MATE ADAPTER 1 EACH in NS 250 ML IV ONE ×2 (03:00→12:00)
[2022-01-05] MEDS: cefTRIAXone SOD 1 GM in D5W MINI-BAG PLUS 50 ML IV SCH (03:12)
[2022-01-05] MEDS ORDERED: VANCOMYCIN INTERMITTENT/PULSE DOSING BY CLINICAL PHARMACIST PER DOSING PROTOCOL XX SCH (04:00)
[2022-01-05] MEDS: INSULIN LISPRO (NovoLOG) PER UNIT SC SCH ×4 (06:00→21:00)
[2022-01-05 07:44] LABS: BASO # 0.1 10^3/uL (0.0-0.2); BASO % 0.5 % (0.0-1.0); EOS # 0.3 10^3/uL (0.0-0.5); EOS % 2.9 % (0.0-3.0); HEMOGLOBIN 9.1 g/dl (13.5-17.5); LYMPH # 0.6 10^3/uL (1.5-5.0); LYMPH % 5.7 % (24.0-44.0); MEAN CORPUSCULAR HEMOGLOBIN 25.9 pg (27.0-33.0); MEAN CORPUSCULAR HGB CONC 30.3 g/dl (32.0-36.5); MEAN CORPUSCULAR VOLUME 85.5 fl (80.0-96.0); MONO # 0.5 10^3/uL (0.0-0.8); MONO % 4.9 % (2.0-8.0); NEUTROPHILS # 8.8 10^3/uL (1.5-8.5); PLATELET COUNT, AUTOMATED 310 10^3/uL (150-450); RED BLOOD COUNT 3.51 10^6/uL (4.30-6.10); WHITE BLOOD COUNT 10.3 10^3/uL (4.0-10.0)
[2022-01-05 07:51] LABS: PROTHROMBIN TIME 48.1 SECONDS (12.7-14.5)
[2022-01-05 07:53] LABS: PARTIAL THROMBOPLASTIN TIME 98.1 SECONDS (25.9-37.0)
[2022-01-05 08:30] LABS: INR 5.23
[2022-01-05 08:45] LABS: CREATININE FOR GFR 6.95 MG/DL (0.70-1.30); GLOMERULAR FILTRATION RATE 8.9 (>56); MAGNESIUM LEVEL 1.8 MG/DL (1.8-2.4); VANCOMYCIN RANDOM 13.9 UG/ML
[2022-01-05] MEDS: DEXTROSE 50% 50 ML SYRINGE IV PRN (12:05)
[2022-01-05 13:05] VITALS: BP 116/48
[2022-01-05 14:00] VITALS: BP 106/50
[2022-01-05] MEDS ORDERED: PHYTONADIONE INJection 5 MG in NS 50 ML IV ONE (16:00)
[2022-01-05] MEDS ORDERED: LIDOCAINE 1% MDV 20ML VIAL As Ordered ONE (16:51)
[2022-01-05] MEDS ORDERED: BUPIVACAINE HCL 0.5% 30ML VIAL As Ordered ONE (16:51)
[2022-01-05] MEDS ORDERED: MIDAZOLAM INJ 2MG/2ML VIAL (J2250 PER 1MG) As Ordered ONE (17:16)
[2022-01-05] MEDS ORDERED: propofoL 500 MG/50 ML VIAL As Ordered ONE (17:16)
[2022-01-05] MEDS ORDERED: LIDOCAINE 2% 100MG/5ML SDV (FOR ANES.) As Ordered ONE (17:16)
[2022-01-05] MEDS ORDERED: fentaNYL 100 MCG/2 ML INJECTION As Ordered ONE (17:16)
[2022-01-05] MEDS ORDERED: LR 1,000 ML IV SCH (18:30)
[2022-01-05] MEDS ORDERED: oxyCODONE 5MG TAB PO PRN (18:30)
[2022-01-05] MEDS ORDERED: fentaNYL 100 MCG/2 ML INJECTION IV PRN (18:30)
[2022-01-05] MEDS ORDERED: MORPHINE 2 MG/ML 1ML VIAL IV PRN (18:30)
[2022-01-05 18:52] LABS: INR 3.14; PROTHROMBIN TIME 32.6 SECONDS (12.7-14.5)
[2022-01-05 20:00] VITALS: BP 111/51
[2022-01-05] MEDS: allopurinoL 100 MG TAB PO SCH (22:39)
[2022-01-05] MEDS: PANTOPRAZOLE 20 MG TAB PO SCH (22:40)
[2022-01-05] MEDS: CALCITRIOL 0.25 MCG CAP (S0169) PO SCH (22:40)
[2022-01-05] MEDS: ATORVASTATIN 20 MG TAB PO SCH (22:40)
[2022-01-05] MEDS: EZETIMIBE 10MG TABLET (ZETIA) PO SCH (22:40)
[2022-01-05] MEDS: ACETAMINOPHEN TAB 650MG DOSE (2X325MG) PO PRN (22:41)
[2022-01-06] MEDS: cefTRIAXone SOD 1 GM in D5W MINI-BAG PLUS 50 ML IV SCH (06:10)
[2022-01-06] MEDS: INSULIN LISPRO (NovoLOG) PER UNIT SC SCH ×4 (07:30→20:47)
[2022-01-06 08:12] LABS: BASO # 0.1 10^3/uL (0.0-0.2); BASO % 0.4 % (0.0-1.0); EOS # 0.3 10^3/uL (0.0-0.5); EOS % 2.3 % (0.0-3.0); HEMATOCRIT 28.5 % (42.0-52.0); HEMOGLOBIN 8.7 g/dl (13.5-17.5); LYMPH # 0.4 10^3/uL (1.5-5.0); MEAN CORPUSCULAR HEMOGLOBIN 26.1 pg (27.0-33.0); MEAN CORPUSCULAR HGB CONC 30.5 g/dl (32.0-36.5); MEAN CORPUSCULAR VOLUME 85.6 fl (80.0-96.0); MONO # 0.8 10^3/uL (0.0-0.8); MONO % 5.4 % (2.0-8.0); NEUTROPHILS # 12.7 10^3/uL (1.5-8.5); NEUTROPHILS % 88.1 % (36.0-66.0); PLATELET COUNT, AUTOMATED 316 10^3/uL (150-450); RED BLOOD COUNT 3.33 10^6/uL (4.30-6.10); WHITE BLOOD COUNT 14.5 10^3/uL (4.0-10.0)
[2022-01-06 08:31] LABS: INR 1.55
[2022-01-06 08:36] LABS: C REACTIVE PROTEIN QUANTITATIV 16.6 MG/DL (0.00-0.30); CALCIUM LEVEL 8.8 MG/DL (8.5-10.1); CREATININE FOR GFR 6.11 MG/DL (0.70-1.30); GLOMERULAR FILTRATION RATE 10.3 (>56); POTASSIUM SERUM 4.1 MEQ/L (3.5-5.1)
[2022-01-06 08:45] VITALS: BP 115/46
[2022-01-06 08:52] LABS: ERYTHROCYTE SEDIMENTATION RATE 87 mm/hr (0-20)
[2022-01-06] MEDS: MORPHINE 2 MG/ML 1ML VIAL IV PRN ×2 (10:54→20:41)
[2022-01-06] MEDS: TORSEMIDE 100 MG TAB PO SCH ×2 (11:04→18:49)
[2022-01-06 11:10] LABS: PERCENT SATURATION 7.5 % (19.7-50.0)
[2022-01-06 12:45] VITALS: BP 138/64
[2022-01-06 14:21] LABS: HEMOGLOBIN 8.4 g/dl (13.5-17.5); MEAN CORPUSCULAR HEMOGLOBIN 26.4 pg (27.0-33.0); MEAN CORPUSCULAR VOLUME 88.1 fl (80.0-96.0); PLATELET COUNT, AUTOMATED 283 10^3/uL (150-450); RED BLOOD COUNT 3.18 10^6/uL (4.30-6.10); WHITE BLOOD COUNT 13.6 10^3/uL (4.0-10.0)
[2022-01-06 16:45] VITALS: BP 132/36
[2022-01-06] MEDS: WARFARIN SOD 2.5MG TAB PO SCH (18:49)
[2022-01-06] MEDS: allopurinoL 100 MG TAB PO SCH (20:42)
[2022-01-06] MEDS: CALCITRIOL 0.25 MCG CAP (S0169) PO SCH (20:43)
[2022-01-06] MEDS: EZETIMIBE 10MG TABLET (ZETIA) PO SCH (20:43)
[2022-01-06] MEDS: ATORVASTATIN 20 MG TAB PO SCH (20:43)
[2022-01-06] MEDS: ASPIRIN 81MG ENTERIC TABLET PO SCH (20:44)
[2022-01-06] MEDS: PANTOPRAZOLE 20 MG TAB PO SCH (20:44)
[2022-01-06 20:45] VITALS: BP 131/39
[2022-01-06] MEDS: CARVedilol 12.5 MG TAB PO SCH (20:46)
[2022-01-07 05:56] VITALS: BP 110/30
[2022-01-07] MEDS: cefTRIAXone SOD 1 GM in D5W MINI-BAG PLUS 50 ML IV SCH (05:59)
[2022-01-07] MEDS: INSULIN LISPRO (NovoLOG) PER UNIT SC SCH ×4 (07:30→20:17)
[2022-01-07 08:50] LABS: BASO # 0.1 10^3/uL (0.0-0.2); BASO % 0.5 % (0.0-1.0); EOS # 0.3 10^3/uL (0.0-0.5); EOS % 3.1 % (0.0-3.0); HEMATOCRIT 27.5 % (42.0-52.0); HEMOGLOBIN 8.4 g/dl (13.5-17.5); LYMPH # 0.5 10^3/uL (1.5-5.0); LYMPH % 4.7 % (24.0-44.0); MEAN CORPUSCULAR HEMOGLOBIN 26.4 pg (27.0-33.0); MEAN CORPUSCULAR HGB CONC 30.5 g/dl (32.0-36.5); MEAN CORPUSCULAR VOLUME 86.5 fl (80.0-96.0); MONO # 0.6 10^3/uL (0.0-0.8); MONO % 5.6 % (2.0-8.0); NEUTROPHILS # 9.4 10^3/uL (1.5-8.5); NEUTROPHILS % 85.2 % (36.0-66.0); PLATELET COUNT, AUTOMATED 316 10^3/uL (150-450); RED BLOOD COUNT 3.18 10^6/uL (4.30-6.10); WHITE BLOOD COUNT 11.1 10^3/uL (4.0-10.0)
[2022-01-07] MEDS: CARVedilol 12.5 MG TAB PO SCH ×2 (09:00→20:16)
[2022-01-07] MEDS: LOSARTAN 50MG TABLET PO SCH (09:00)
[2022-01-07 09:13] LABS: INR 1.8; PROTHROMBIN TIME 21.3 SECONDS (12.7-14.5)
[2022-01-07 09:15] LABS: CALCIUM LEVEL 9.2 MG/DL (8.5-10.1); CREATININE FOR GFR 5.19 MG/DL (0.70-1.30); GLOMERULAR FILTRATION RATE 12.5 (>56); POTASSIUM SERUM 3.5 MEQ/L (3.5-5.1); VANCOMYCIN RANDOM 16.3 UG/ML
[2022-01-07] MEDS ORDERED: HEPARIN SOD (PORCINE) 5000UNITS/ML 1ML VIAL/SYRINGE IP ONE (10:00)
[2022-01-07] MEDS ORDERED: VANCOMYCIN HCL 1,000 MG, VIAL MATE ADAPTER 1 EACH in NS 250 ML IV ONE (10:15)
[2022-01-07] MEDS: TORSEMIDE 100 MG TAB PO SCH ×2 (10:59→18:10)
[2022-01-07 12:01] LABS: C REACTIVE PROTEIN QUANTITATIV 21.7 MG/DL (0.00-0.30)
[2022-01-07] MEDS: MORPHINE 2 MG/ML 1ML VIAL IV PRN ×2 (12:49→23:35)
[2022-01-07 14:00] VITALS: BP 108/35
[2022-01-07] MEDS ORDERED: POTASSIUM CHLORIDE 10MEQ SR TABLET PO ONE (17:00)
[2022-01-07] MEDS: WARFARIN SOD 2.5MG TAB PO SCH (18:13)
[2022-01-07] MEDS: ASPIRIN 81MG ENTERIC TABLET PO SCH (20:15)
[2022-01-07] MEDS: ATORVASTATIN 20 MG TAB PO SCH (20:15)
[2022-01-07] MEDS: CALCITRIOL 0.25 MCG CAP (S0169) PO SCH (20:15)
[2022-01-07] MEDS: PANTOPRAZOLE 20 MG TAB PO SCH (20:15)
[2022-01-07] MEDS: allopurinoL 100 MG TAB PO SCH (20:16)
[2022-01-07] MEDS: EZETIMIBE 10MG TABLET (ZETIA) PO SCH (20:18)
[2022-01-07 22:00] VITALS: BP 111/58
[2022-01-08] MEDS: cefTRIAXone SOD 1 GM in D5W MINI-BAG PLUS 50 ML IV SCH (05:15)
[2022-01-08 06:00] VITALS: BP 108/58
[2022-01-08 06:15] LABS: INR 2.27; PROTHROMBIN TIME 25.4 SECONDS (12.7-14.5)
[2022-01-08] MEDS: ACETAMINOPHEN TAB 650MG DOSE (2X325MG) PO PRN ×2 (06:37→10:38)
[2022-01-08] MEDS: INSULIN LISPRO (NovoLOG) PER UNIT SC SCH ×4 (07:30→21:00)
[2022-01-08] MEDS: LOSARTAN 50MG TABLET PO SCH (09:00)
[2022-01-08 10:24] VITALS: BP 112/51
[2022-01-08] MEDS: TORSEMIDE 100 MG TAB PO SCH ×2 (10:37→17:24)
[2022-01-08] MEDS: glipiZIDE (GLUCOTROL) 5 MG TAB PO SCH ×2 (10:37→17:24)
[2022-01-08] MEDS: CARVedilol 12.5 MG TAB PO SCH ×2 (10:37→22:07)
[2022-01-08 11:50] LABS: PTH INTACT 349.1 PG/ML (18.5-88.0); TOTAL 25(OH) VITAMIN D 38.2 NG/ML (30.0-100.0)
[2022-01-08 14:00] VITALS: BP 115/50
[2022-01-08] MEDS: NORCO, ANEXSIA 5/325MG TABLET (HYDROcodone/ACETAMINOPHEN) PO PRN ×2 (15:41→22:08)
[2022-01-08] MEDS: WARFARIN SOD 2MG TAB PO SCH (17:24)
[2022-01-08 22:00] VITALS: BP 113/53
[2022-01-08] MEDS: ATORVASTATIN 20 MG TAB PO SCH (22:06)
[2022-01-08] MEDS: EZETIMIBE 10MG TABLET (ZETIA) PO SCH (22:06)
[2022-01-08] MEDS: ASPIRIN 81MG ENTERIC TABLET PO SCH (22:06)
[2022-01-08] MEDS: allopurinoL 100 MG TAB PO SCH (22:06)
[2022-01-08] MEDS: CALCITRIOL 0.25 MCG CAP (S0169) PO SCH (22:09)
[2022-01-08] MEDS: PANTOPRAZOLE 20 MG TAB PO SCH (22:23)
[2022-01-09] MEDS: cefTRIAXone SOD 1 GM in D5W MINI-BAG PLUS 50 ML IV SCH (05:35)
[2022-01-09 06:00] VITALS: BP 114/53
[2022-01-09 06:17] LABS: BASO # 0.1 10^3/uL (0.0-0.2); BASO % 0.7 % (0.0-1.0); EOS # 0.3 10^3/uL (0.0-0.5); EOS % 2.9 % (0.0-3.0); HEMATOCRIT 27.9 % (42.0-52.0); HEMOGLOBIN 8.5 g/dl (13.5-17.5); LYMPH # 0.7 10^3/uL (1.5-5.0); MEAN CORPUSCULAR HEMOGLOBIN 26.3 pg (27.0-33.0); MEAN CORPUSCULAR HGB CONC 30.5 g/dl (32.0-36.5); MEAN CORPUSCULAR VOLUME 86.4 fl (80.0-96.0); MONO # 0.6 10^3/uL (0.0-0.8); MONO % 5.9 % (2.0-8.0); NEUTROPHILS # 7.9 10^3/uL (1.5-8.5); NEUTROPHILS % 82.6 % (36.0-66.0); PLATELET COUNT, AUTOMATED 327 10^3/uL (150-450); RED BLOOD COUNT 3.23 10^6/uL (4.30-6.10); WHITE BLOOD COUNT 9.6 10^3/uL (4.0-10.0)
[2022-01-09 06:25] LABS: INR 2.65; PROTHROMBIN TIME 28.6 SECONDS (12.7-14.5)
[2022-01-09 06:34] LABS: ALBUMIN 1.5 GM/DL (3.2-5.2); C REACTIVE PROTEIN QUANTITATIV 18.1 MG/DL (0.00-0.30); CALCIUM LEVEL 8.2 MG/DL (8.5-10.1); CREATININE FOR GFR 4.62 MG/DL (0.70-1.30); GLOMERULAR FILTRATION RATE 14.3 (>56); PHOSPHORUS LEVEL 4.7 MG/DL (2.5-4.9); POTASSIUM SERUM 3.5 MEQ/L (3.5-5.1)
[2022-01-09] MEDS ORDERED: VANCOMYCIN HCL 500 MG in D5W MINI-BAG PLUS 100 ML IV ONE (08:00)
[2022-01-09] MEDS: NORCO, ANEXSIA 5/325MG TABLET (HYDROcodone/ACETAMINOPHEN) PO PRN ×3 (08:34→15:05)
[2022-01-09] MEDS: glipiZIDE (GLUCOTROL) 5 MG TAB PO SCH ×2 (08:35→16:53)
[2022-01-09] MEDS: CARVedilol 12.5 MG TAB PO SCH ×2 (08:36→21:00)
[2022-01-09] MEDS: INSULIN LISPRO (NovoLOG) PER UNIT SC SCH ×4 (08:36→21:00)
[2022-01-09] MEDS: TORSEMIDE 100 MG TAB PO SCH ×2 (08:37→16:53)
[2022-01-09] MEDS ORDERED: FERRIC CARBOXYMALTOSE INJ 750 MG, VIAL MATE ADAPTER 1 EACH in NS 250 ML IV ONE (09:00)
[2022-01-09] MEDS: LOSARTAN 50MG TABLET PO SCH (09:00)
[2022-01-09 10:44] VITALS: BP 109/50
[2022-01-09 14:00] VITALS: BP 108/48
[2022-01-09] MEDS: WARFARIN SOD 2MG TAB PO SCH (14:22)
[2022-01-09] MEDS: NICOTINE 21MG/24HR 1 EA TRANSDERMAL TD SCH (16:54)
[2022-01-09] MEDS: ASPIRIN 81MG ENTERIC TABLET PO SCH ×2 (21:00→21:34)
[2022-01-09] MEDS: EZETIMIBE 10MG TABLET (ZETIA) PO SCH (21:34)
[2022-01-09] MEDS: CALCITRIOL 0.25 MCG CAP (S0169) PO SCH (21:34)
[2022-01-09] MEDS: ATORVASTATIN 20 MG TAB PO SCH (21:34)
[2022-01-09] MEDS ORDERED: MIDODRINE 5 MG TAB PO ONE (21:50)
[2022-01-09] MEDS: PANTOPRAZOLE 20 MG TAB PO SCH (21:59)
[2022-01-09] MEDS: allopurinoL 100 MG TAB PO SCH (21:59)
[2022-01-09 22:00] VITALS: BP_SYST 121; BP_SYST 154; BP_DIAS 48; BP_DIAS 87
[2022-01-09] MEDS: ACETAMINOPHEN TAB 650MG DOSE (2X325MG) PO PRN (23:04)
[2022-01-10] VITALS (9 sets, daily range): BP systolic 103–132; BP diastolic 39–82
[2022-01-10 06:29] LABS: BASO # 0.1 10^3/uL (0.0-0.2); BASO % 0.7 % (0.0-1.0); EOS # 0.3 10^3/uL (0.0-0.5); EOS % 3.6 % (0.0-3.0); HEMATOCRIT 29.1 % (42.0-52.0); HEMOGLOBIN 8.7 g/dl (13.5-17.5); LYMPH # 0.7 10^3/uL (1.5-5.0); LYMPH % 8.3 % (24.0-44.0); MEAN CORPUSCULAR HEMOGLOBIN 25.7 pg (27.0-33.0); MEAN CORPUSCULAR HGB CONC 29.9 g/dl (32.0-36.5); MEAN CORPUSCULAR VOLUME 86.1 fl (80.0-96.0); MONO # 0.5 10^3/uL (0.0-0.8); MONO % 5.7 % (2.0-8.0); NEUTROPHILS # 6.9 10^3/uL (1.5-8.5); NEUTROPHILS % 80.7 % (36.0-66.0); PLATELET COUNT, AUTOMATED 339 10^3/uL (150-450); RED BLOOD COUNT 3.38 10^6/uL (4.30-6.10); WHITE BLOOD COUNT 8.6 10^3/uL (4.0-10.0)
[2022-01-10] MEDS: cefTRIAXone SOD 1 GM in D5W MINI-BAG PLUS 50 ML IV SCH (06:40)
[2022-01-10 06:48] LABS: INR 2.44; PROTHROMBIN TIME 26.9 SECONDS (12.7-14.5)
[2022-01-10 07:00] LABS: CALCIUM LEVEL 8.4 MG/DL (8.5-10.1); CREATININE FOR GFR 4.43 MG/DL (0.70-1.30); POTASSIUM SERUM 3.4 MEQ/L (3.5-5.1)
[2022-01-10] MEDS: INSULIN LISPRO (NovoLOG) PER UNIT SC SCH ×4 (07:30→20:53)
[2022-01-10] MEDS ORDERED: POTASSIUM CHLORIDE 10MEQ SR TABLET PO ONE (08:00)
[2022-01-10] MEDS ORDERED: INSULIN LISPRO (NovoLOG) PER UNIT As Ordered ONE (08:54)
[2022-01-10] MEDS ORDERED: BUPIVACAINE HCL 0.5% 30ML VIAL As Ordered ONE (08:54)
[2022-01-10] MEDS ORDERED: LIDOCAINE 2% MDV 20ML VIAL As Ordered ONE (08:54)
[2022-01-10] MEDS ORDERED: LR 1,000 ML IV SCH (09:20)
[2022-01-10] MEDS ORDERED: fentaNYL 100 MCG/2 ML INJECTION IV PRN (09:20)
[2022-01-10] MEDS ORDERED: oxyCODONE 5MG TAB PO PRN (09:20)
[2022-01-10] MEDS ORDERED: ONDANSETRON 4MG/2ML VIAL IV PRN (09:20)
[2022-01-10] MEDS: glipiZIDE (GLUCOTROL) 5 MG TAB PO SCH ×2 (10:03→18:09)
[2022-01-10] MEDS: NICOTINE 21MG/24HR 1 EA TRANSDERMAL TD SCH (10:04)
[2022-01-10] MEDS: CARVedilol 12.5 MG TAB PO SCH ×2 (10:04→21:04)
[2022-01-10] MEDS: ACETAMINOPHEN TAB 650MG DOSE (2X325MG) PO PRN ×2 (14:55→21:02)
[2022-01-10] MEDS: ASPIRIN 81MG ENTERIC TABLET PO SCH (21:00)
[2022-01-10] MEDS: EZETIMIBE 10MG TABLET (ZETIA) PO SCH (21:02)
[2022-01-10] MEDS: ATORVASTATIN 20 MG TAB PO SCH (21:03)
[2022-01-10] MEDS: allopurinoL 100 MG TAB PO SCH (21:04)
[2022-01-10] MEDS: CALCITRIOL 0.25 MCG CAP (S0169) PO SCH (21:04)
[2022-01-10] MEDS: PANTOPRAZOLE 20 MG TAB PO SCH (21:07)
[2022-01-11] MEDS: cefTRIAXone SOD 1 GM in D5W MINI-BAG PLUS 50 ML IV SCH (05:43)
[2022-01-11 06:00] VITALS: BP_SYST 113; BP_DIAS 34; BP_DIAS 44
[2022-01-11] MEDS: metroNIDAZOLE (FLAGYL) 500MG TABLET PO SCH ×3 (06:00→22:48)
[2022-01-11 06:27] LABS: BASO # 0.1 10^3/uL (0.0-0.2); BASO % 0.5 % (0.0-1.0); EOS # 0.4 10^3/uL (0.0-0.5); EOS % 3.3 % (0.0-3.0); HEMATOCRIT 27.2 % (42.0-52.0); HEMOGLOBIN 8.1 g/dl (13.5-17.5); LYMPH # 0.8 10^3/uL (1.5-5.0); LYMPH % 7.2 % (24.0-44.0); MEAN CORPUSCULAR HEMOGLOBIN 25.8 pg (27.0-33.0); MEAN CORPUSCULAR HGB CONC 29.8 g/dl (32.0-36.5); MEAN CORPUSCULAR VOLUME 86.6 fl (80.0-96.0); MONO # 0.7 10^3/uL (0.0-0.8); MONO % 5.7 % (2.0-8.0); NEUTROPHILS # 9.7 10^3/uL (1.5-8.5); NEUTROPHILS % 82.7 % (36.0-66.0); PLATELET COUNT, AUTOMATED 321 10^3/uL (150-450); RED BLOOD COUNT 3.14 10^6/uL (4.30-6.10); WHITE BLOOD COUNT 11.7 10^3/uL (4.0-10.0)
[2022-01-11 06:36] LABS: INR 2.66; PROTHROMBIN TIME 28.7 SECONDS (12.7-14.5)
[2022-01-11 06:56] LABS: CALCIUM LEVEL 9.2 MG/DL (8.5-10.1); CREATININE FOR GFR 4.3 MG/DL (0.70-1.30); GLOMERULAR FILTRATION RATE 15.5 (>56); POTASSIUM SERUM 3.5 MEQ/L (3.5-5.1); VANCOMYCIN RANDOM 15.4 UG/ML
[2022-01-11] MEDS ORDERED: VANCOMYCIN HCL 500 MG in D5W MINI-BAG PLUS 100 ML IV SCH (08:00)
[2022-01-11] MEDS: glipiZIDE (GLUCOTROL) 5 MG TAB PO SCH ×2 (08:36→18:01)
[2022-01-11] MEDS: CARVedilol 12.5 MG TAB PO SCH ×2 (08:36→21:00)
[2022-01-11] MEDS: INSULIN LISPRO (NovoLOG) PER UNIT SC SCH ×4 (08:37→22:24)
[2022-01-11] MEDS: NICOTINE 21MG/24HR 1 EA TRANSDERMAL TD SCH (08:37)
[2022-01-11] MEDS: ACETAMINOPHEN TAB 650MG DOSE (2X325MG) PO PRN (08:42)
[2022-01-11] MEDS ORDERED: LevoFLOXacin IV 750 MG in IV 1 EA IV SCH (09:10)
[2022-01-11] MEDS ORDERED: metroNIDAZOLE 500 MG in IV 1 EA IV SCH (09:10)
[2022-01-11 10:00] VITALS: BP 122/52
[2022-01-11] MEDS ORDERED: LevoFLOXacin 750 MG TABLET PO ONE (10:00)
[2022-01-11] MEDS ORDERED: POTASSIUM CHLORIDE 10MEQ SR TABLET PO ONE (12:35)
[2022-01-11 14:00] VITALS: BP 100/48
[2022-01-11] MEDS: WARFARIN SOD 2MG TAB PO SCH (18:01)
[2022-01-11 22:00] VITALS: BP 102/37
[2022-01-11] MEDS: ASPIRIN 81MG ENTERIC TABLET PO SCH (22:22)
[2022-01-11] MEDS: EZETIMIBE 10MG TABLET (ZETIA) PO SCH (22:22)
[2022-01-11] MEDS: CALCITRIOL 0.25 MCG CAP (S0169) PO SCH (22:23)
[2022-01-11] MEDS: ATORVASTATIN 20 MG TAB PO SCH (22:23)
[2022-01-11] MEDS: allopurinoL 100 MG TAB PO SCH (22:23)
[2022-01-11] MEDS: PANTOPRAZOLE 20 MG TAB PO SCH (22:48)
[2022-01-12 06:00] VITALS: BP 105/41
[2022-01-12] MEDS: ACETAMINOPHEN TAB 650MG DOSE (2X325MG) PO PRN ×3 (06:07→17:31)
[2022-01-12] MEDS: metroNIDAZOLE (FLAGYL) 500MG TABLET PO SCH ×3 (06:07→22:03)
[2022-01-12] MEDS: LevoFLOXacin 250 MG TABLET PO SCH (06:07)
[2022-01-12] MEDS: CARVedilol 12.5 MG TAB PO SCH ×2 (07:30→21:00)
[2022-01-12] MEDS: INSULIN LISPRO (NovoLOG) PER UNIT SC SCH ×4 (07:30→21:00)
[2022-01-12 08:06] LABS: BASO # 0.1 10^3/uL (0.0-0.2); BASO % 0.6 % (0.0-1.0); EOS # 0.3 10^3/uL (0.0-0.5); EOS % 2.6 % (0.0-3.0); HEMATOCRIT 25.6 % (42.0-52.0); HEMOGLOBIN 7.7 g/dl (13.5-17.5); LYMPH # 0.8 10^3/uL (1.5-5.0); MEAN CORPUSCULAR HEMOGLOBIN 26.2 pg (27.0-33.0); MEAN CORPUSCULAR HGB CONC 30.1 g/dl (32.0-36.5); MEAN CORPUSCULAR VOLUME 87.1 fl (80.0-96.0); MONO # 0.6 10^3/uL (0.0-0.8); NEUTROPHILS # 8.2 10^3/uL (1.5-8.5); NEUTROPHILS % 81.7 % (36.0-66.0); PLATELET COUNT, AUTOMATED 300 10^3/uL (150-450); RED BLOOD COUNT 2.94 10^6/uL (4.30-6.10); WHITE BLOOD COUNT 10.1 10^3/uL (4.0-10.0)
[2022-01-12] MEDS: glipiZIDE (GLUCOTROL) 5 MG TAB PO SCH ×2 (08:17→17:32)
[2022-01-12 08:18] LABS: INR 2.38; PROTHROMBIN TIME 26.4 SECONDS (12.7-14.5)
[2022-01-12] MEDS: NICOTINE 21MG/24HR 1 EA TRANSDERMAL TD SCH (08:18)
[2022-01-12 08:27] LABS: CALCIUM LEVEL 8.3 MG/DL (8.5-10.1); CREATININE FOR GFR 4.33 MG/DL (0.70-1.30); GLOMERULAR FILTRATION RATE 15.4 (>56); POTASSIUM SERUM 3.9 MEQ/L (3.5-5.1)
[2022-01-12] MEDS ORDERED: DARBEPOETIN 100 MCG/0.5 ML *NON-DIALYSIS* SYRINGE (J0881) SC SCH (09:00)
[2022-01-12 14:00] VITALS: BP 100/50
[2022-01-12] MEDS: WARFARIN SOD 2MG TAB PO SCH (17:32)
[2022-01-12 22:00] VITALS: BP 108/40
[2022-01-12] MEDS: CALCITRIOL 0.25 MCG CAP (S0169) PO SCH (22:02)
[2022-01-12] MEDS: ASPIRIN 81MG ENTERIC TABLET PO SCH (22:02)
[2022-01-12] MEDS: PANTOPRAZOLE 20 MG TAB PO SCH (22:02)
[2022-01-12] MEDS: EZETIMIBE 10MG TABLET (ZETIA) PO SCH (22:02)
[2022-01-12] MEDS: ATORVASTATIN 20 MG TAB PO SCH (22:03)
[2022-01-12] MEDS: allopurinoL 100 MG TAB PO SCH (22:03)
[2022-01-12] MEDS: HEPARIN SOD (PORCINE) 5000UNITS/ML 1ML VIAL/SYRINGE PD SCH (22:04)
[2022-01-13] MEDS: ACETAMINOPHEN TAB 650MG DOSE (2X325MG) PO PRN ×2 (02:27→20:23)
[2022-01-13 06:00] VITALS: BP 108/42
[2022-01-13] MEDS: metroNIDAZOLE (FLAGYL) 500MG TABLET PO SCH ×3 (06:22→20:21)
[2022-01-13] MEDS: LevoFLOXacin 250 MG TABLET PO SCH (06:22)
[2022-01-13 06:35] LABS: BASO # 0.1 10^3/uL (0.0-0.2); BASO % 0.8 % (0.0-1.0); EOS # 0.3 10^3/uL (0.0-0.5); EOS % 3.1 % (0.0-3.0); HEMATOCRIT 26.9 % (42.0-52.0); HEMOGLOBIN 8.1 g/dl (13.5-17.5); LYMPH # 0.7 10^3/uL (1.5-5.0); LYMPH % 7.8 % (24.0-44.0); MEAN CORPUSCULAR HEMOGLOBIN 25.9 pg (27.0-33.0); MEAN CORPUSCULAR HGB CONC 30.1 g/dl (32.0-36.5); MEAN CORPUSCULAR VOLUME 85.9 fl (80.0-96.0); MONO # 0.6 10^3/uL (0.0-0.8); NEUTROPHILS # 7.3 10^3/uL (1.5-8.5); NEUTROPHILS % 80.1 % (36.0-66.0); PLATELET COUNT, AUTOMATED 287 10^3/uL (150-450); RED BLOOD COUNT 3.13 10^6/uL (4.30-6.10); WHITE BLOOD COUNT 9.1 10^3/uL (4.0-10.0)
[2022-01-13 06:58] LABS: INR 2.3; PROTHROMBIN TIME 25.7 SECONDS (12.7-14.5)
[2022-01-13] MEDS: HEPARIN SOD (PORCINE) 5000UNITS/ML 1ML VIAL/SYRINGE PD SCH ×4 (07:05→18:57)
[2022-01-13 07:08] LABS: CALCIUM LEVEL 8.7 MG/DL (8.5-10.1); CREATININE FOR GFR 4.01 MG/DL (0.70-1.30); GLOMERULAR FILTRATION RATE 16.8 (>56); POTASSIUM SERUM 3.7 MEQ/L (3.5-5.1)
[2022-01-13] MEDS: CARVedilol 12.5 MG TAB PO SCH ×2 (08:04→20:05)
[2022-01-13] MEDS: NICOTINE 21MG/24HR 1 EA TRANSDERMAL TD SCH (08:05)
[2022-01-13] MEDS: glipiZIDE (GLUCOTROL) 5 MG TAB PO SCH ×2 (08:05→17:01)
[2022-01-13] MEDS: INSULIN LISPRO (NovoLOG) PER UNIT SC SCH ×3 (08:05→17:01)
[2022-01-13 14:00] VITALS: BP 116/46
[2022-01-13] MEDS: WARFARIN SOD 2MG TAB PO SCH (17:00)
[2022-01-13] MEDS: ATORVASTATIN 20 MG TAB PO SCH (20:02)
[2022-01-13] MEDS: CALCITRIOL 0.25 MCG CAP (S0169) PO SCH (20:03)
[2022-01-13] MEDS: ASPIRIN 81MG ENTERIC TABLET PO SCH (20:03)
[2022-01-13] MEDS: EZETIMIBE 10MG TABLET (ZETIA) PO SCH (20:03)
[2022-01-13] MEDS: allopurinoL 100 MG TAB PO SCH (20:03)
[2022-01-13 20:05] VITALS: BP 117/46
[2022-01-13] MEDS: PANTOPRAZOLE 20 MG TAB PO SCH (20:21)
== END 2022-01-13 20:36 | disposition short-term general hospital (02) | DRG 255 ==
LOC: M ED 19:18 → M ED INP 01-05 01:26 → ENRESERV 01-05 10:57 → M MSPAV 01-05 13:48
PROVIDERS: ADMIT Family Medicine; ATTEND Internal Medicine
PROC: 0Y6S0Z0 Detachment at Left 2nd Toe, Complete, Open Approach (ICD-10-PCS; 2022-01-05)
PROC: 0Y6Q0Z0 Detachment at Left 1st Toe, Complete, Open Approach (ICD-10-PCS; principal; 2022-01-05 16:30)
PROC: 0Y6U0Z0 Detachment at Left 3rd Toe, Complete, Open Approach (ICD-10-PCS; 2022-01-10)
DX: E11.52 Type 2 diabetes mellitus with diabetic peripheral angiopathy with gangrene (principal); N18.6 End stage renal disease; M86.272 Subacute osteomyelitis, left ankle and foot; L02.612 Cutaneous abscess of left foot; I13.2 Hypertensive heart and chronic kidney disease with heart failure and with stage 5 chronic kidney disease, or end stage renal disease; E46 Unspecified protein-calorie malnutrition; E11.69 Type 2 diabetes mellitus with other specified complication; K21.9 Gastro-esophageal reflux disease without esophagitis; M10.9 Gout, unspecified; I25.10 Atherosclerotic heart disease of native coronary artery without angina pectoris; E11.22 Type 2 diabetes mellitus with diabetic chronic kidney disease; E78.5 Hyperlipidemia, unspecified; I25.5 Ischemic cardiomyopathy; Z99.2 Dependence on renal dialysis; D63.1 Anemia in chronic kidney disease; I50.9 Heart failure, unspecified; R63.0 Anorexia; E87.6 Hypokalemia; F17.200 Nicotine dependence, unspecified, uncomplicated; Z86.73 Personal history of transient ischemic attack (TIA), and cerebral infarction without residual deficits; Z89.422 Acquired absence of other left toe(s); Z79.899 Other long term (current) drug therapy; Z79.82 Long term (current) use of aspirin; Z88.8 Allergy status to other drugs, medicaments and biological substances; Z95.1 Presence of aortocoronary bypass graft; Z79.4 Long term (current) use of insulin; I25.2 Old myocardial infarction; Z95.2 Presence of prosthetic heart valve; D50.9 Iron deficiency anemia, unspecified; I48.91 Unspecified atrial fibrillation; I95.9 Hypotension, unspecified

== ENCOUNTER → 2022-02-28 | Outpatient (REF) | payer MEDICARE, OTHER ==
[2022-02-28 16:51] LABS: HEMOGLOBIN A1c 6.6 %
== END ==
LOC: M SFHCWOUN 15:50
PROVIDERS: ATTEND Surgery
DX: E11.621 Type 2 diabetes mellitus with foot ulcer (principal)

== ENCOUNTER → 2022-03-20 | Outpatient (CLI) | payer MEDICARE, OTHER | LOC: M RAD 09:54 | PROVIDERS: ATTEND Surgery Vascular Surgery | DX: S91.302A Unspecified open wound, left foot, initial encounter (principal); I70.293 Other atherosclerosis of native arteries of extremities, bilateral legs; Z95.828 Presence of other vascular implants and grafts; X58.XXXA Exposure to other specified factors, initial encounter; Y92.9 Unspecified place or not applicable ==

== ENCOUNTER 2022-04-26 12:30 | Inpatient (IN) | payer MEDICARE, OTHER ==
[~2022-04-26] VITALS: Ht 177.8 cm; Wt 84.6 kg
[2022-04-26] MEDS ORDERED: AMOX875T2 PO (12:39)
[2022-04-26] MEDS ORDERED: LIDOCAINE W/EPINEPHRINE 1% 20ML VIAL As Ordered ONE (13:08)
[2022-04-26] MEDS ORDERED: LIDOCAINE W/EPINEPHRINE 1% 20ML VIAL SC ONE (13:10)
[2022-04-26] MEDS ORDERED: NS 1,000 ML IV ONE (13:45)
[2022-04-26 13:52] LABS: BASO % 0.5 % (0.0-1.0); EOS # 0.1 10^3/uL (0.0-0.5); EOS % 1.4 % (0.0-3.0); HEMATOCRIT 30.4 % (42.0-52.0); HEMOGLOBIN 9.4 g/dl (13.5-17.5); LYMPH # 0.6 10^3/uL (1.5-5.0); LYMPH % 6.8 % (24.0-44.0); MEAN CORPUSCULAR HEMOGLOBIN 27.2 pg (27.0-33.0); MEAN CORPUSCULAR HGB CONC 30.9 g/dl (32.0-36.5); MEAN CORPUSCULAR VOLUME 87.9 fl (80.0-96.0); MONO # 0.6 10^3/uL (0.0-0.8); NEUTROPHILS # 7.3 10^3/uL (1.5-8.5); NEUTROPHILS % 83.3 % (36.0-66.0); PLATELET COUNT, AUTOMATED 333 10^3/uL (150-450); RED BLOOD COUNT 3.46 10^6/uL (4.30-6.10); WHITE BLOOD COUNT 8.8 10^3/uL (4.0-10.0)
[2022-04-26 14:06] LABS: PARTIAL THROMBOPLASTIN TIME 112.1 SECONDS (25.9-37.0)
[2022-04-26 14:17] LABS: PROTHROMBIN TIME 63.5 SECONDS (12.7-14.5)
[2022-04-26 14:25] LABS: INR 7.52
[2022-04-26 14:36] LABS: RSV AMPLIFICATION NEGATIVE (NEGATIVE)
[2022-04-26 14:57] LABS: CALCIUM LEVEL 10.2 MG/DL (8.5-10.1); CREATININE FOR GFR 6.26 MG/DL (0.70-1.30); GLOMERULAR FILTRATION RATE 10.1 (>56); POTASSIUM SERUM 3.5 MEQ/L (3.5-5.1); THYROID STIMULATING HORMONE 1.93 uIU/ML (0.358-3.740)
[2022-04-26] MEDS ORDERED: PHYTONADIONE 5 MG TAB PO ONE ×2 (16:55→17:45)
[2022-04-26] MEDS ORDERED: MAALOX 30 ML SUSP *UDC PO PRN (17:00)
[2022-04-26] MEDS ORDERED: MOM 30ML SUSPENSION UDC PO PRN (17:00)
[2022-04-26] MEDS ORDERED: PHYTONADIONE 1.25 MG 1/4 TAB PO ONE (17:25)
[2022-04-26] MEDS ORDERED: PERCOCET 5MG/325MG TAB PO ONE (17:30)
[2022-04-26] MEDS ORDERED: GLUCAGON INJ 1MG VIAL SC PRN (17:35)
[2022-04-26] MEDS ORDERED: DEXTROSE 50% 50 ML SYRINGE IV PRN (17:35)
[2022-04-26] MEDS ORDERED: GLUCOSE 4GM CHEW TABLET PO PRN (17:35)
[2022-04-26] MEDS: INSULIN LISPRO (NovoLOG) PER UNIT SC SCH ×2 (17:59→21:00)
[2022-04-26] MEDS ORDERED: ROCA0.5C PO (18:11)
[2022-04-26] MEDS ORDERED: HOME MED LIST COMPLETE! XX SCH (18:15)
[2022-04-26 19:26] LABS: CK-MB VALUE MASS 1.4 NG/ML (<3.6); MB/CK RELATIVE INDEX 5.38 (< OR =4)
[2022-04-26 20:35] VITALS: BP 107/50
[2022-04-26] MEDS ORDERED: CALCITRIOL 0.25 MCG CAP (S0169) PO SCH (21:00)
[2022-04-26] MEDS: DOCUSATE SODIUM 100MG CAPSULE PO SCH (21:00)
[2022-04-26] MEDS ORDERED: CARVedilol 12.5 MG TAB PO SCH (21:00)
[2022-04-26] MEDS: EZETIMIBE 10MG TABLET (ZETIA) PO SCH (21:14)
[2022-04-26] MEDS: ATORVASTATIN 20 MG TAB PO SCH (21:14)
[2022-04-26] MEDS: PANTOPRAZOLE 20 MG TAB PO SCH (21:15)
[2022-04-26] MEDS: allopurinoL 100 MG TAB PO SCH (21:15)
[2022-04-26 23:49] LABS: PROTHROMBIN TIME 67.6 SECONDS (12.7-14.5)
[2022-04-27 00:06] LABS: INR 8.17
[2022-04-27 00:25] VITALS: BP 119/56
[2022-04-27] MEDS: PERCOCET 5MG/325MG TAB PO PRN ×2 (00:46→09:10)
[2022-04-27] MEDS ORDERED: PILL CUTTER 1 EACH XX PRN (01:50)
[2022-04-27] MEDS ORDERED: PHYTONADIONE 5 MG TAB PO ONE (02:00)
[2022-04-27] MEDS ORDERED: PHYTONADIONE 2.5 MG **1/2 TAB PO ONE (02:00)
[2022-04-27 04:00] VITALS: BP 114/54
[2022-04-27 07:15] LABS: BASO # 0.1 10^3/uL (0.0-0.2); BASO % 0.6 % (0.0-1.0); EOS # 0.2 10^3/uL (0.0-0.5); EOS % 2.5 % (0.0-3.0); HEMATOCRIT 28.5 % (42.0-52.0); HEMOGLOBIN 8.8 g/dl (13.5-17.5); LYMPH # 0.7 10^3/uL (1.5-5.0); LYMPH % 7.5 % (24.0-44.0); MEAN CORPUSCULAR HEMOGLOBIN 26.8 pg (27.0-33.0); MEAN CORPUSCULAR HGB CONC 30.9 g/dl (32.0-36.5); MEAN CORPUSCULAR VOLUME 86.9 fl (80.0-96.0); MONO # 0.6 10^3/uL (0.0-0.8); MONO % 7.3 % (2.0-8.0); NEUTROPHILS # 7.1 10^3/uL (1.5-8.5); NEUTROPHILS % 81.3 % (36.0-66.0); PLATELET COUNT, AUTOMATED 321 10^3/uL (150-450); RED BLOOD COUNT 3.28 10^6/uL (4.30-6.10); WHITE BLOOD COUNT 8.8 10^3/uL (4.0-10.0)
[2022-04-27 07:49] LABS: CALCIUM LEVEL 9.8 MG/DL (8.5-10.1); CREATININE FOR GFR 6.32 MG/DL (0.70-1.30); POTASSIUM SERUM 3.8 MEQ/L (3.5-5.1)
[2022-04-27 08:00] VITALS: BP 101/42
[2022-04-27 08:01] LABS: INR 6.24
[2022-04-27] MEDS: DOCUSATE SODIUM 100MG CAPSULE PO SCH ×3 (09:00→20:34)
[2022-04-27] MEDS: ACETAMINOPHEN TAB 650MG DOSE (2X325MG) PO PRN (09:10)
[2022-04-27] MEDS: INSULIN LISPRO (NovoLOG) PER UNIT SC SCH ×4 (09:32→20:31)
[2022-04-27] MEDS ORDERED: HYDROMORPHONE HCL 0.5 MG/ 0.5 ML SYRINGE (J1170 PER 1) IV PRN (10:20)
[2022-04-27 12:49] VITALS: BP 94/41
[2022-04-27 13:03] LABS: INR 4.29; PROTHROMBIN TIME 41.3 SECONDS (12.7-14.5)
[2022-04-27 16:00] VITALS: BP 116/48
[2022-04-27] MEDS: PIPERACILLIN/TAZOBACTAM SOD 2.25 GM in D5W MINI-BAG PLUS 50 ML IV SCH ×2 (16:14→22:54)
[2022-04-27] MEDS: MUPIROCIN 2% OINT 22 GM TUBE TOP SCH (18:31)
[2022-04-27 19:11] LABS: HEMATOCRIT 28.9 % (42.0-52.0); HEMOGLOBIN 8.9 g/dl (13.5-17.5)
[2022-04-27 19:27] LABS: INR 3.22; PROTHROMBIN TIME 33.2 SECONDS (12.7-14.5)
[2022-04-27 19:38] VITALS: BP 101/46
[2022-04-27] MEDS: EZETIMIBE 10MG TABLET (ZETIA) PO SCH (20:31)
[2022-04-27] MEDS: ATORVASTATIN 20 MG TAB PO SCH (20:31)
[2022-04-27] MEDS: allopurinoL 100 MG TAB PO SCH (20:32)
[2022-04-27] MEDS: PANTOPRAZOLE 20 MG TAB PO SCH (20:32)
[2022-04-27] MEDS: ANEXSIA, NORCO 7.5MG/325MG TABLET(HYDROCODONE/APAP) PO PRN (20:33)
[2022-04-28] VITALS (8 sets, daily range): BP systolic 78–126; BP diastolic 44–53
[2022-04-28] MEDS: PIPERACILLIN/TAZOBACTAM SOD 2.25 GM in D5W MINI-BAG PLUS 50 ML IV SCH ×3 (05:59→21:37)
[2022-04-28] MEDS: ACETAMINOPHEN TAB 650MG DOSE (2X325MG) PO PRN (06:06)
[2022-04-28 08:42] LABS: INR 2.94
[2022-04-28] MEDS: MUPIROCIN 2% OINT 22 GM TUBE TOP SCH (09:00)
[2022-04-28] MEDS: DOCUSATE SODIUM 100MG CAPSULE PO SCH ×2 (09:00→21:00)
[2022-04-28 09:01] LABS: CALCIUM LEVEL 10.1 MG/DL (8.5-10.1); CREATININE FOR GFR 5.44 MG/DL (0.70-1.30); GLOMERULAR FILTRATION RATE 11.8 (>56); POTASSIUM SERUM 3.4 MEQ/L (3.5-5.1)
[2022-04-28 09:02] LABS: MAGNESIUM LEVEL 1.7 MG/DL (1.8-2.4); PHOSPHORUS LEVEL 4.6 MG/DL (2.5-4.9)
[2022-04-28 09:16] LABS: BASO % 0.5 % (0.0-1.0); EOS # 0.3 10^3/uL (0.0-0.5); EOS % 3.3 % (0.0-3.0); HEMATOCRIT 26.4 % (42.0-52.0); HEMOGLOBIN 8.3 g/dl (13.5-17.5); LYMPH # 0.7 10^3/uL (1.5-5.0); LYMPH % 7.4 % (24.0-44.0); MEAN CORPUSCULAR HEMOGLOBIN 27.1 pg (27.0-33.0); MEAN CORPUSCULAR HGB CONC 31.4 g/dl (32.0-36.5); MEAN CORPUSCULAR VOLUME 86.3 fl (80.0-96.0); MONO # 0.7 10^3/uL (0.0-0.8); MONO % 7.9 % (2.0-8.0); NEUTROPHILS # 7.1 10^3/uL (1.5-8.5); PLATELET COUNT, AUTOMATED 305 10^3/uL (150-450); RED BLOOD COUNT 3.06 10^6/uL (4.30-6.10); WHITE BLOOD COUNT 8.8 10^3/uL (4.0-10.0)
[2022-04-28] MEDS: INSULIN LISPRO (NovoLOG) PER UNIT SC SCH ×4 (09:59→21:00)
[2022-04-28] MEDS ORDERED: POTASSIUM CHLORIDE 10MEQ SR TABLET PO ONE (12:10)
[2022-04-28] MEDS ORDERED: NS 250 ML IV ONE ×2 (12:30)
[2022-04-28 12:40] LABS: PERCENT SATURATION 16.8 % (19.7-50.0)
[2022-04-28] MEDS: ANEXSIA, NORCO 7.5MG/325MG TABLET(HYDROCODONE/APAP) PO PRN (18:20)
[2022-04-28] MEDS: allopurinoL 100 MG TAB PO SCH (21:37)
[2022-04-28] MEDS: EZETIMIBE 10MG TABLET (ZETIA) PO SCH (21:37)
[2022-04-28] MEDS: ATORVASTATIN 20 MG TAB PO SCH (21:37)
[2022-04-28] MEDS: PANTOPRAZOLE 20 MG TAB PO SCH (21:37)
[2022-04-29] MEDS: ANEXSIA, NORCO 7.5MG/325MG TABLET(HYDROCODONE/APAP) PO PRN ×2 (03:32→20:45)
[2022-04-29 03:36] VITALS: BP 115/51
[2022-04-29] MEDS: PIPERACILLIN/TAZOBACTAM SOD 2.25 GM in D5W MINI-BAG PLUS 50 ML IV SCH (06:30)
[2022-04-29 07:40] LABS: BASO % 0.4 % (0.0-1.0); EOS # 0.3 10^3/uL (0.0-0.5); EOS % 3.4 % (0.0-3.0); HEMATOCRIT 27.3 % (42.0-52.0); HEMOGLOBIN 8.4 g/dl (13.5-17.5); LYMPH # 0.6 10^3/uL (1.5-5.0); LYMPH % 7.9 % (24.0-44.0); MEAN CORPUSCULAR HEMOGLOBIN 27.1 pg (27.0-33.0); MEAN CORPUSCULAR HGB CONC 30.8 g/dl (32.0-36.5); MEAN CORPUSCULAR VOLUME 88.1 fl (80.0-96.0); MONO # 0.5 10^3/uL (0.0-0.8); MONO % 6.7 % (2.0-8.0); NEUTROPHILS # 6.4 10^3/uL (1.5-8.5); NEUTROPHILS % 80.6 % (36.0-66.0); PLATELET COUNT, AUTOMATED 309 10^3/uL (150-450)
[2022-04-29 07:56] LABS: INR 2.92; PROTHROMBIN TIME 30.8 SECONDS (12.7-14.5)
[2022-04-29 08:18] VITALS: BP 104/55
[2022-04-29 08:24] LABS: CREATININE FOR GFR 4.74 MG/DL (0.70-1.30); GLOMERULAR FILTRATION RATE 13.9 (>56); POTASSIUM SERUM 3.5 MEQ/L (3.5-5.1)
[2022-04-29 08:25] LABS: CALCIUM LEVEL 9.5 MG/DL (8.5-10.1)
[2022-04-29] MEDS ORDERED: POTASSIUM CHLORIDE 10MEQ SR TABLET PO SCH (09:00)
[2022-04-29] MEDS ORDERED: DARBEPOETIN 100 MCG/0.5 ML *NON-DIALYSIS* SYRINGE (J0881) SC SCH (09:00)
[2022-04-29] MEDS: INSULIN LISPRO (NovoLOG) PER UNIT SC SCH ×4 (10:24→20:46)
[2022-04-29] MEDS: POTASSIUM CHLORIDE 10MEQ SR TABLET PO SCH ×2 (10:27→20:45)
[2022-04-29] MEDS: DOCUSATE SODIUM 100MG CAPSULE PO SCH ×2 (10:27→20:46)
[2022-04-29] MEDS: MUPIROCIN 2% OINT 22 GM TUBE TOP SCH (10:28)
[2022-04-29 15:57] VITALS: BP 114/48
[2022-04-29] MEDS: LevoFLOXacin 500 MG TABLET PO SCH (18:39)
[2022-04-29 20:23] VITALS: BP 96/54
[2022-04-29] MEDS: ATORVASTATIN 20 MG TAB PO SCH (20:44)
[2022-04-29] MEDS: EZETIMIBE 10MG TABLET (ZETIA) PO SCH (20:44)
[2022-04-29] MEDS: PANTOPRAZOLE 20 MG TAB PO SCH (20:44)
[2022-04-29] MEDS: LEVEMIR (INSULIN DETEMIR) 1 UNITS/0.01ML SC SCH (20:45)
[2022-04-29] MEDS: allopurinoL 100 MG TAB PO SCH (20:45)
[2022-04-30 05:23] VITALS: BP 109/51
[2022-04-30 08:40] VITALS: BP 105/49
[2022-04-30 08:45] LABS: BASO % 0.4 % (0.0-1.0); EOS # 0.3 10^3/uL (0.0-0.5); HEMATOCRIT 28.1 % (42.0-52.0); HEMOGLOBIN 8.4 g/dl (13.5-17.5); LYMPH # 0.8 10^3/uL (1.5-5.0); LYMPH % 9.4 % (24.0-44.0); MEAN CORPUSCULAR HGB CONC 29.9 g/dl (32.0-36.5); MONO # 0.7 10^3/uL (0.0-0.8); MONO % 7.5 % (2.0-8.0); NEUTROPHILS # 7.1 10^3/uL (1.5-8.5); NEUTROPHILS % 78.8 % (36.0-66.0); PLATELET COUNT, AUTOMATED 334 10^3/uL (150-450); RED BLOOD COUNT 3.23 10^6/uL (4.30-6.10)
[2022-04-30 08:55] LABS: INR 2.37; PROTHROMBIN TIME 26.3 SECONDS (12.7-14.5)
[2022-04-30] MEDS ORDERED: FERRIC CARBOXYMALTOSE INJ 750 MG, VIAL MATE ADAPTER 1 EACH in NS 250 ML IV ONE (09:00)
[2022-04-30] MEDS: DOCUSATE SODIUM 100MG CAPSULE PO SCH ×2 (09:00→20:35)
[2022-04-30 09:21] LABS: CREATININE FOR GFR 4.1 MG/DL (0.70-1.30); GLOMERULAR FILTRATION RATE 16.4 (>56); POTASSIUM SERUM 3.6 MEQ/L (3.5-5.1)
[2022-04-30] MEDS: INSULIN LISPRO (NovoLOG) PER UNIT SC SCH ×4 (09:33→20:28)
[2022-04-30] MEDS: POTASSIUM CHLORIDE 10MEQ SR TABLET PO SCH ×2 (09:33→20:34)
[2022-04-30] MEDS: MUPIROCIN 2% OINT 22 GM TUBE TOP SCH (09:34)
[2022-04-30] MEDS: ANEXSIA, NORCO 7.5MG/325MG TABLET(HYDROCODONE/APAP) PO PRN ×2 (10:05→22:04)
[2022-04-30 17:38] VITALS: BP 102/47
[2022-04-30 20:00] VITALS: BP 105/52
[2022-04-30] MEDS: EZETIMIBE 10MG TABLET (ZETIA) PO SCH (20:34)
[2022-04-30] MEDS: LEVEMIR (INSULIN DETEMIR) 1 UNITS/0.01ML SC SCH (20:34)
[2022-04-30] MEDS: allopurinoL 100 MG TAB PO SCH (20:35)
[2022-04-30] MEDS: ATORVASTATIN 20 MG TAB PO SCH (20:35)
[2022-04-30] MEDS: PANTOPRAZOLE 20 MG TAB PO SCH (20:35)
[2022-05-01 04:00] VITALS: BP 97/49
[2022-05-01] MEDS: INSULIN LISPRO (NovoLOG) PER UNIT SC SCH ×4 (07:30→20:51)
[2022-05-01 08:00] VITALS: BP 98/47
[2022-05-01 08:29] LABS: BASO # 0.1 10^3/uL (0.0-0.2); BASO % 0.5 % (0.0-1.0); EOS # 0.3 10^3/uL (0.0-0.5); EOS % 2.8 % (0.0-3.0); HEMATOCRIT 26.9 % (42.0-52.0); HEMOGLOBIN 8.1 g/dl (13.5-17.5); LYMPH # 0.9 10^3/uL (1.5-5.0); LYMPH % 9.7 % (24.0-44.0); MEAN CORPUSCULAR HEMOGLOBIN 26.6 pg (27.0-33.0); MEAN CORPUSCULAR HGB CONC 30.1 g/dl (32.0-36.5); MEAN CORPUSCULAR VOLUME 88.5 fl (80.0-96.0); MONO # 0.6 10^3/uL (0.0-0.8); MONO % 6.5 % (2.0-8.0); NEUTROPHILS # 7.5 10^3/uL (1.5-8.5); NEUTROPHILS % 79.3 % (36.0-66.0); PLATELET COUNT, AUTOMATED 330 10^3/uL (150-450); RED BLOOD COUNT 3.04 10^6/uL (4.30-6.10); WHITE BLOOD COUNT 9.4 10^3/uL (4.0-10.0)
[2022-05-01 08:39] LABS: INR 1.99
[2022-05-01] MEDS: POTASSIUM CHLORIDE 10MEQ SR TABLET PO SCH ×2 (08:46→20:50)
[2022-05-01] MEDS: DOCUSATE SODIUM 100MG CAPSULE PO SCH ×2 (08:46→20:51)
[2022-05-01 08:59] LABS: CALCIUM LEVEL 9.7 MG/DL (8.5-10.1); CREATININE FOR GFR 3.81 MG/DL (0.70-1.30); GLOMERULAR FILTRATION RATE 17.8 (>56); POTASSIUM SERUM 3.8 MEQ/L (3.5-5.1)
[2022-05-01] MEDS: MUPIROCIN 2% OINT 22 GM TUBE TOP SCH (11:54)
[2022-05-01] MEDS: ANEXSIA, NORCO 7.5MG/325MG TABLET(HYDROCODONE/APAP) PO PRN ×2 (11:54→22:10)
[2022-05-01 16:00] VITALS: BP 110/44
[2022-05-01] MEDS: LevoFLOXacin 500 MG TABLET PO SCH (19:22)
[2022-05-01 20:00] VITALS: BP 95/52
[2022-05-01] MEDS: LEVEMIR (INSULIN DETEMIR) 1 UNITS/0.01ML SC SCH (20:50)
[2022-05-01] MEDS: EZETIMIBE 10MG TABLET (ZETIA) PO SCH (20:50)
[2022-05-01] MEDS: ATORVASTATIN 20 MG TAB PO SCH (20:51)
[2022-05-01] MEDS: PANTOPRAZOLE 20 MG TAB PO SCH (20:51)
[2022-05-01] MEDS: allopurinoL 100 MG TAB PO SCH (20:51)
[2022-05-01 23:40] VITALS: BP 104/50
[2022-05-02 04:46] VITALS: BP 111/48
[2022-05-02 06:14] LABS: BASO % 0.4 % (0.0-1.0); EOS # 0.3 10^3/uL (0.0-0.5); EOS % 2.2 % (0.0-3.0); HEMATOCRIT 27.4 % (42.0-52.0); HEMOGLOBIN 7.9 g/dl (13.5-17.5); LYMPH # 0.9 10^3/uL (1.5-5.0); LYMPH % 8.3 % (24.0-44.0); MEAN CORPUSCULAR HEMOGLOBIN 25.9 pg (27.0-33.0); MEAN CORPUSCULAR HGB CONC 28.8 g/dl (32.0-36.5); MEAN CORPUSCULAR VOLUME 89.8 fl (80.0-96.0); MONO # 0.7 10^3/uL (0.0-0.8); MONO % 5.8 % (2.0-8.0); NEUTROPHILS # 9.2 10^3/uL (1.5-8.5); NEUTROPHILS % 82.2 % (36.0-66.0); PLATELET COUNT, AUTOMATED 345 10^3/uL (150-450); RED BLOOD COUNT 3.05 10^6/uL (4.30-6.10); WHITE BLOOD COUNT 11.2 10^3/uL (4.0-10.0)
[2022-05-02 06:25] LABS: INR 1.65; PROTHROMBIN TIME 19.9 SECONDS (12.7-14.5)
[2022-05-02 07:07] LABS: CALCIUM LEVEL 9.4 MG/DL (8.5-10.1); CREATININE FOR GFR 3.8 MG/DL (0.70-1.30); GLOMERULAR FILTRATION RATE 17.9 (>56); POTASSIUM SERUM 4.1 MEQ/L (3.5-5.1)
[2022-05-02 08:00] VITALS: BP 113/46
[2022-05-02] MEDS: ANEXSIA, NORCO 7.5MG/325MG TABLET(HYDROCODONE/APAP) PO PRN (08:55)
[2022-05-02] MEDS: POTASSIUM CHLORIDE 10MEQ SR TABLET PO SCH (08:55)
[2022-05-02] MEDS: DOCUSATE SODIUM 100MG CAPSULE PO SCH (08:56)
[2022-05-02] MEDS: INSULIN LISPRO (NovoLOG) PER UNIT SC SCH ×2 (08:56→12:55)
[2022-05-02] MEDS: MUPIROCIN 2% OINT 22 GM TUBE TOP SCH (08:57)
[2022-05-02] MEDS ORDERED: LEVO1TAB39 PO (10:56)
[2022-05-02 12:00] VITALS: BP 106/49
== END 2022-05-02 15:04 | disposition home or self-care (01) | DRG 919 ==
LOC: M ED 12:30 → M ED INP 16:57 → M PCU 20:37
PROVIDERS: ADMIT Internal Medicine; ATTEND Internal Medicine
DX: L76.22 Postprocedural hemorrhage of skin and subcutaneous tissue following other procedure (principal); N18.6 End stage renal disease; I12.0 Hypertensive chronic kidney disease with stage 5 chronic kidney disease or end stage renal disease; M86.8X7 Other osteomyelitis, ankle and foot; D68.32 Hemorrhagic disorder due to extrinsic circulating anticoagulants; E87.1 Hypo-osmolality and hyponatremia; E46 Unspecified protein-calorie malnutrition; L03.116 Cellulitis of left lower limb; K21.9 Gastro-esophageal reflux disease without esophagitis; F17.210 Nicotine dependence, cigarettes, uncomplicated; Z98.890 Other specified postprocedural states; L97.529 Non-pressure chronic ulcer of other part of left foot with unspecified severity; E11.51 Type 2 diabetes mellitus with diabetic peripheral angiopathy without gangrene; E11.69 Type 2 diabetes mellitus with other specified complication; I25.10 Atherosclerotic heart disease of native coronary artery without angina pectoris; Z79.01 Long term (current) use of anticoagulants; Z95.2 Presence of prosthetic heart valve; Z95.1 Presence of aortocoronary bypass graft; Z89.422 Acquired absence of other left toe(s); D63.1 Anemia in chronic kidney disease; Z88.8 Allergy status to other drugs, medicaments and biological substances; Z79.82 Long term (current) use of aspirin; Z79.899 Other long term (current) drug therapy; M10.9 Gout, unspecified; I25.2 Old myocardial infarction; Z79.4 Long term (current) use of insulin; E78.5 Hyperlipidemia, unspecified; E87.6 Hypokalemia; I95.9 Hypotension, unspecified; Z66 Do not resuscitate

== ENCOUNTER → 2022-05-22 | Outpatient (CLI) | payer MEDICARE, OTHER ==
[~2022-05-22] MED LIST changes: +AMOX875T2 PO; +LEVO1TAB39 PO; +ROCA0.5C PO
== END ==
LOC: M RAD 09:13
PROVIDERS: ATTEND Surgery Vascular Surgery
DX: I73.9 Peripheral vascular disease, unspecified (principal); R23.0 Cyanosis; M79.603 Pain in arm, unspecified

== ENCOUNTER 2022-07-16 14:08 | Emergency (ER) | payer MEDICARE, OTHER ==
[~2022-07-16] VITALS: Ht 182.9 cm; Wt 95.5 kg
[2022-07-16] MEDS ORDERED: DEXTROSE 50% 50 ML SYRINGE IV STA (14:11)
[2022-07-16] MEDS ORDERED: ROCURONIUM BROMIDE 50 MG/5 ML VIAL IV ONE (14:15)
[2022-07-16] MEDS ORDERED: ETOMIDATE INJ 20MG/10ML VIAL IV ONE (14:15)
[2022-07-16] MEDS ORDERED: D10W/0.45% SODIUM CHLORIDE 1,000 ML IV SCH (14:30)
[2022-07-16] MEDS ORDERED: propofoL 1,000 MG in IV 1 EA IV SCH (14:35)
[2022-07-16] MEDS ORDERED: PIPERACILLIN/TAZOBACTAM SOD 4.5 GM in D5W MINI-BAG PLUS 50 ML IV ONE (14:35)
[2022-07-16] MEDS ORDERED: VANCOMYCIN HCL 2,000 MG in D5W 500 ML IV ONE (14:35)
[2022-07-16] MEDS ORDERED: ACETAMINOPHEN 650MG SUPP PR ONE (14:35)
[2022-07-16] MEDS ORDERED: DEXTROSE 50% 50 ML SYRINGE As Ordered ONE (14:46)
[2022-07-16] MEDS ORDERED: VANCOMYCIN HCL 750 MG, VIAL MATE ADAPTER 1 EACH in D5W 250 ML IV ONE ×6 (15:05)
[2022-07-16 16:22] LABS: BASO % 0.1 % (0.0-1.0); HEMATOCRIT 33.7 % (42.0-52.0); HEMOGLOBIN 9.8 g/dl (13.5-17.5); LYMPH # 0.6 10^3/uL (1.5-5.0); MEAN CORPUSCULAR HEMOGLOBIN 26.7 pg (27.0-33.0); MEAN CORPUSCULAR HGB CONC 29.1 g/dl (32.0-36.5); MEAN CORPUSCULAR VOLUME 91.8 fl (80.0-96.0); MONO # 0.4 10^3/uL (0.0-0.8); MONO % 3.6 % (2.0-8.0); NEUTROPHILS # 10.3 10^3/uL (1.5-8.5); NEUTROPHILS % 90.9 % (36.0-66.0); PLATELET COUNT, AUTOMATED 225 10^3/uL (150-450); RED BLOOD COUNT 3.67 10^6/uL (4.30-6.10); WHITE BLOOD COUNT 11.3 10^3/uL (4.0-10.0)
[2022-07-16 16:44] LABS: CK-MB VALUE MASS 1.3 NG/ML (<3.6); ETHYL ALCOHOL (ETHANOL) 0.003 % (0.000-0.010)
[2022-07-16 16:46] LABS: ACETAMINOPHEN LEVEL < 2.0 UG/ML (10.0-20.0); ALBUMIN 2.5 G/DL (3.2-5.2); ALKALINE PHOSPHATASE 98 U/L (46-116); ALT/SGPT < 9 U/L (7.0-40); AST/SGOT 30 U/L (<34); BILIRUBIN,DIRECT 0.2 MG/DL (<0.4); BILIRUBIN,TOTAL 0.4 MG/DL (0.3-1.2); BLOOD UREA NITROGEN 64 MG/DL (9-23); CALCIUM LEVEL 8.2 MG/DL (8.5-10.1); CARBON DIOXIDE LEVEL 26 MMOL/L (20-31); CHLORIDE LEVEL 98 MMOL/L (98-107); CPK CREATINE PHOSPHOKINASE 105 U/L (46-171); CREATININE FOR GFR 6.16 MG/DL (0.70-1.30); GLOMERULAR FILTRATION RATE 10.2 (>56); GLUCOSE, FASTING 151 MG/DL (60-100); MB/CK RELATIVE INDEX 1.23 (< OR =4); POTASSIUM SERUM 4.1 MMOL/L (3.5-5.1); SALICYLATE LEVEL < 3.0 MG/DL (<30); SODIUM LEVEL 137 MMOL/L (136-145); TOTAL PROTEIN 6.4 G/DL (5.7-8.2)
[2022-07-16 16:48] LABS: THYROID STIMULATING HORMONE 1.348 uIU/ML (0.55-4.78)
[2022-07-16] MEDS ORDERED: ASPIRIN 300 MG SUPP PR ONE (17:15)
[2022-07-16 17:42] LABS: CK-MB VALUE MASS 1.7 NG/ML (<3.6)
[2022-07-16 17:43] LABS: MB/CK RELATIVE INDEX 1.45 (< OR =4)
[2022-07-16 17:51] LABS: INR 1.24; PROTHROMBIN TIME 15.9 SECONDS (12.5-14.5)
[2022-07-16 17:52] LABS: PARTIAL THROMBOPLASTIN TIME 36.2 SECONDS (24.8-34.2)
[2022-07-16 18:13] LABS: OSMOLALITY SERUM 311 MOSM/KG (275-295)
[2022-07-16] MEDS ORDERED: HEPARIN DRIP 25,000 UNITS in IV 1 EA IV SCH (18:30)
[2022-07-16] MEDS ORDERED: HEPARIN SOD (PORCINE) 5000UNITS/ML 1ML VIAL/SYRINGE IV ONE (18:30)
[2022-07-16 19:19] VITALS: BP 113/49
== END 2022-07-16 19:40 | disposition short-term general hospital (02) ==
LOC: M ED 14:08
DX: E11.649 Type 2 diabetes mellitus with hypoglycemia without coma (principal); J96.00 Acute respiratory failure, unspecified whether with hypoxia or hypercapnia; R00.1 Bradycardia, unspecified; I44.4 Left anterior fascicular block; I44.7 Left bundle-branch block, unspecified; K21.9 Gastro-esophageal reflux disease without esophagitis; I10 Essential (primary) hypertension; Z86.73 Personal history of transient ischemic attack (TIA), and cerebral infarction without residual deficits; Z88.8 Allergy status to other drugs, medicaments and biological substances; Z79.84 Long term (current) use of oral hypoglycemic drugs; Z79.82 Long term (current) use of aspirin; Z79.899 Other long term (current) drug therapy
CPT/HCPCS: 31500; 36600; 51702; 70450; 71045; 71250; 72125; 74176; 80048; 80076; 80143; 81000; 81015; 82077; 82550; 82553; 82803; 83930; 84443; 84484; 85025; 85610; 85730; 87040; 87486; 87581; 87633; 87798; 93005; 93041; 94760; 96365; 96366; 96375; 99291; 99292; J1644; J2543; J3370